=== PATIENT | male | born 1970 | race African-American/Black ===

== ENCOUNTER 2017-07-06 10:37 | Inpatient (IN) | payer OTHER ==
[2017-07-06 11:33] VITALS: BMI 25.8
--- NOTE | 2017-07-06 12:53 | HP ---
COWS - Scale Resting Pulse: 1= [place] 81-100 Sweatin= Chills/Flushing Restless Observation: 1= Difficult to Sit Still Pupil Size: 2= Moderately Dilated Bone or Joint Aches: 2= Severe Diffuse Aches Runny Nose/ Eye Tearin= Nasal Congestion GI Upset > 30mins: 2= Nausea/Diarrhea Tremor Observation: 2= Slight Tremor Visible Yawning Observation: 2= >3x During Session Anxiety or Irritability: 2=Irritable/Anxious Goose Flesh Skin: 0=Smooth Skin COWS Score: 16 Admission ROS S - HPI Chief Complaint: opiate withdrawal sx Allergies/Adverse Reactions: Allergies Allergy/AdvReac Type Severity Reaction Status Date / Time haloperidol [From Haldol] AdvReac Severe stiffness Verified 07/06/17 12:53 haloperidol lactate AdvReac Severe stiffness Verified 07/06/17 12:53 [From Haldol] risperidone [From Risperdal] AdvReac Severe stiffness Verified 07/06/17 12:53 History of Present Illness: 46 years old male with long history of opiate nicotine dependence has thyroid ca removed 2013 the right 2015 the left treated with synthroid at the present time, ambulating with cane x 5 years due to arthritis of the knees and spine, history of suboxone program last visit 03/2017 has schizophrenia is admitted to detox Exam Limitations: No Limitations - Ebola screening Have you traveled outside of the country in the last 21 days: No Have you had contact with anyone from an Ebola affected area: No Have you been sick,other than usual withdrawal symptoms: No Do you have a fever: No - Review of Systems Constitutional: Changes in sleep, Weight Stable EENT: reports: No Symptoms Reported Respiratory: reports: Cough, SOB with Exertion Cardiac: reports: No Symptoms Reported GI: reports: Nausea, Poor Fluid Intake, Abdominal cramping : reports: No Symptoms Reported Musculoskeletal: reports: Back Pain, Joint Pain, Muscle Pain, Muscle Weakness ( knees), Neck Pain Integumentary: reports: No Symptoms Reported Neuro: reports: Tremors Endocrine: reports: Intolerance to Cold Hematology: reports: No Symptoms Reported Psychiatric: reports: Judgement Intact, Orientated x3, Depressed Other Systems: Reviewed and Negative Patient History - Patient Medical History Hx Anemia: No Hx Asthma: Yes (dx 2009) Hx Chronic Obstructive Pulmonary Disease (COPD): No Hx Cancer: Yes (thyroid) Hx Cardiac Disorders: No Hx Congestive Heart Failure: No Hx Hypertension: Yes Hx Hypercholesterolemia: No Hx Pacemaker: No HX Cerebrovascular Accident: No Hx Seizures: No Hx Dementia: No Hx Diabetes: No Hx Gastrointestinal Disorders: No Hx Liver Disease: No Hx Genitourinary Disorders: No Hx Sexually Transmitted Disorders: No Hx Renal Disease (ESRD): Yes (bad kidneys due to high protein cannot take antiinflamatories) Hx Thyroid Disease: Yes (thyroid ca AND HYPOTHYROIDISM PST THYROIDECTOMY) Hx Human Immunodeficiency Virus (HIV): No Hx Hepatitis C: No Hx Depression: No (dx ) Hx Suicide Attempt: Yes (1987 & 2011) Hx Bipolar Disorder: Yes Hx Schizophrenia: No - Patient Surgical History Past Surgical History: Yes Hx Neurologic Surgery: No Hx Cataract Extraction: No Hx Cardiac Surgery: No Hx Lung Surgery: No Hx Breast Surgery: No Hx Breast Biopsy: No Hx Abdominal Surgery: No Hx Appendectomy: No Hx Cholecystectomy: No Hx Genitourinary Surgery: No Hx Orthopedic Surgery: No Other Surgical History: SURGERY FOR CANCER OF THYROID IN 01/27 AND 02/28 and back of neck early Anesthesia Reaction: No - PPD History Previous Implant?: Yes Documented Results: Negative w/proof Implanted On Prior R Admission?: Yes Date: 04/05/17 PPD to be Administered?: No - Smoking Cessation Smoking history: Current every day smoker Aproximately how many cigarettes per day: 10 Cigars Per Day: 0 Hx Chewing Tobacco Use: No Initiated information on smoking cessation: Yes 'Breaking Loose' booklet given: 07/06/17 - Substance & Tx. History Hx Alcohol Use: No Hx Substance Use: Yes Substance Use Type: Cocaine, Marijuana, Opiates Hx Substance Use Treatment: Yes (03/2017) Family Disease History - Family Disease History Family Disease History: Heart Disease: Grandparent (stroke), Father (ALCOHOL,DSA ,), Sister (lupus/stroke), Other: Grandparent, Father, Brother (ALCOHOL, DSA), Sister Admission Physical Exam BHS - Vital Signs Vital Signs: Vital Signs - 24 hr 07/06/17 11:29 Temperature 98.2 F Pulse Rate 96 H Respiratory 20 Rate Blood Pressure 126/73 - Physical General Appearance: Yes: Nourished, Appropriately Dressed, Mild Distress, Tremorous, Irritable, Sweating, Anxious HEENTM: Yes: Hearing grossly Normal, Normocephalic, Normal Voice Respiratory: Yes: Chest Non-Tender, No Respiratory Distress, No Accessory Muscle Use, Wheezing, Expiration Neck: Yes: Supple, Trachea in good position Breast: Yes: Breasts Symetrical, No Discharge Cardiology: Yes: Regular Rhythm, S1, S2, Tachycardia Abdominal: Yes: Normal Bowel Sounds, Non Tender, Flat Genitourinary: Yes: Within Normal Limits Back: Yes: Normal Inspection Musculoskeletal: Yes: full range of Motion (slower both knees), Gait Steady ( cane), Back pain, Muscle Pain, Muscle weakness (knees) Extremities: Yes: Normal Inspection, Normal Range of Motion (upper extremities) , Non-Tender, Tremors 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: Yes: Fully Oriented, Alert, Normal Mood/Affect, Normal Response, Depressed Affect Integumentary: Yes: Warm, Other (anterior lower neck surgical scar posterior neck surgical scar) Lymphatic: Yes: Within Normal Limits - Diagnostic (1) Cocaine dependence Current Visit: Yes Status: Chronic Qualifiers: Substance use status: uncomplicated Qualified Code(s): F14.20 - Cocaine dependence, uncomplicated (2) Tooth ache Current Visit: Yes Status: Chronic (3) Use of cane as ambulatory aid Current Visit: Yes Status: Chronic (4) Arthritis of back Current Visit: No Status: Chronic (5) Arthritis of both knees Current Visit: Yes Status: Chronic (6) Asthma Current Visit: Yes Status: Chronic Qualifiers: Asthma severity: mild Asthma persistence: intermittent Asthma complication type: with status asthmaticus Qualified Code(s): J45.22 - Mild intermittent asthma with status asthmaticus (7) Hypertension Current Visit: Yes Status: Chronic Qualifiers: Hypertension type: essential hypertension Qualified Code(s): I10 - Essential (primary) hypertension (8) Hypothyroidism Current Visit: Yes Status: Chronic Qualifiers: Hypothyroidism type: postoperative Qualified Code(s): E89.0 - Postprocedural hypothyroidism (9) Opioid dependence Current Visit: Yes Status: Acute Qualifiers: Substance use status: uncomplicated Qualified Code(s): F11.20 - Opioid dependence, uncomplicated (10) Schizoaffective disorder Current Visit: Yes Status: Suspected Qualifiers: Schizoaffective disorder type: bipolar Qualified Code(s): F25.0 - Schizoaffective disorder, bipolar type Comment: History. Cleared for Admission [facility] - Detox or Rehab [facility] Level of Care: Medically Managed Detox Regimen/Protocol: Methadone BHS Breath Alcohol Content Breath Alcohol Content: 0 Urine Drug Screen - Control Is Test Valid: Yes - Results Drug Screen Negative: No Urine Drug Screen Results: THC-Marijuana, RUCHI-Cocaine, OPI-Opiates, MTD- Methadone
[2017-07-06] MEDS ORDERED: IBUPROFEN 400 MG TABLET (FP) PO PRN (13:06)
[2017-07-06] MEDS ORDERED: LOPERAMIDE HCL 2 MG CAPSULE PO PRN (13:06)
[2017-07-06] MEDS ORDERED: MAGNESIUM CITRATE 300 ML BOTTLE PO PRN (13:06)
[2017-07-06] MEDS ORDERED: P-EPHED 60MG/TRIPROLIDI 2.5MG TABLET PO PRN (13:06)
[2017-07-06] MEDS ORDERED: MAGNESIUM HYDROX 2400MG/30ML ORAL SUSPENSION 30 ML CUP PO PRN (13:06)
[2017-07-06] MEDS ORDERED: ACETAMINOPHEN 325 MG TABLET (FP) PO PRN (13:06)
[2017-07-06] MEDS ORDERED: guaiFENesin/D-METHORPHAN HB 10 ML UNIT-DOSE CUPS PO PRN (13:06)
[2017-07-06] MEDS ORDERED: MENTHOL/PHENOL 1 EACH UD MM PRN (13:06)
[2017-07-06] MEDS ORDERED: MAG HYDROX/AL HYDROX/SIMETH 30 ML UNIT-DOSE CUP PO PRN (13:06)
[2017-07-06] MEDS ORDERED: ALBUTEROL SO4 18 GM HFA INHALER IH PRN (13:09)
[2017-07-06] MEDS ORDERED: METHADONE HCL 10 MG TABLET (FOR DETOX USE ONLY) PO ONE ×2 (13:45→23:00)
[2017-07-06] MEDS: NICOTINE 14 MG/24 HOURS TOPICAL PATCH TD SCH (14:56)
--- NOTE | 2017-07-06 17:25 | CONSULT ---
[facility] Psychiatric Consult - Data Date of interview: 07/06/17 Admission source: [facility] Identifying data: Readmission to [facility] for this 46 y/o [place]-born male seeking detox treatment on for heroin,cannabis and cocaine dependence.Patient is single without children,domiciled,unemployed,deprived of any source of income and currently suported by relatives. Substance Abuse History: Confirmed by patient in this interview.Smoking history : Current every day smoker. Aproximately how many cigarettes per day: 10. Cigars Per Day: 0. Hx Chewing Tobacco Use: No. Initiated information on smoking cessation: Yes. 'Breaking Loose' booklet given: 07/06/17. - Substance & Tx. History. Hx Alcohol Use: No. Hx Substance Use: Yes. Substance Use Type : Cocaine, Marijuana, Opiates. Hx Substance Use Treatment: Yes (03/2017) Medical History: Arthritis of both knees,end-stage renal disease (ESRD), hypertension,bronchial asthma and a history of thyroidectomy (thyroid cancer) in 2013.Currently on levothyroxine (150 mcg/day). Psychiatric History: Early onset of psychiatric disturbances : age 9 ( behavioral dyscontrol,school truancy,disregard for rules or authority figures) .Initially diagnosed with ADHD.Prescribed psychostimulants (ritalin).Diagnosis was upgraded to Schizoaffective Disorder and OCD (in his early 20's).Patient presents with a history of multiple psychiatric hospitalizations ([facility]).Managed with various psychotropic medications over the years which included haloperidol,risperdal,zyprexa, seroquel,depakote, fluoxetine,bupropion,luvoxamine and many other molecules. Mr Gutierrez is currently in psychiatric OPD care at a mental health clinic located in [place] ( name not recalled by patient).Managed with wellbutrin XL 150 mg.day.History of two suicide attempts (overdose with pills and hanging). Physical/Sexual Abuse/Trauma History: Not discussed.Patient declines.Records indicate a heavy history of incarcerations (26 cumulative years).Released in 2016.[place] status : not disclosed by the patient. Additional Comment: Urine Drug Screen Results: THC-Marijuana, RUCHI-Cocaine, OPI- Opiates, MTD-Methadone.Noted. Mental Status Exam - Mental Status Exam Alert and Oriented to: Time, Place, Person Cognitive Function: Good Patient Appearance: Well Groomed Mood: Nervous, Withdrawn, Anxious Affect: Appropriate, Mood Congruent Patient Behavior: Fatigued, Appropriate, Cooperative Speech Pattern: Clear Voice Loudness: Normal Thought Process: Goal Oriented Thought Disorder: Not Present Hallucinations: Denies Suicidal Ideation: Denies Homicidal Ideation: Denies Insight/Judgement: Poor Sleep: Well Appetite: Good Muscle strength/Tone: Normal Gait/Station: Normal Psychiatric Findings - Problem List ([place] 1, 2,3) (1) Opioid dependence with withdrawal Current Visit: Yes Status: Acute (2) Cocaine dependence, uncomplicated Current Visit: Yes Status: Acute (3) Cannabis dependence Current Visit: Yes Status: Acute (4) Nicotine dependence Current Visit: Yes Status: Acute (5) Substance induced mood disorder Current Visit: Yes Status: Acute (6) Schizoaffective disorder, depressive type Current Visit: Yes Status: Chronic (7) History of OCD (obsessive compulsive disorder) Current Visit: Yes Status: Chronic Comment: As per self-report and existing records. - Initial Treatment Plan Initial Treatment Plan: Psychoeducation.Detoxification.Sleep hygiene.Wellbutrin XL 150 mg po daily.Side effects/benefits discussed with the patient.Informed of risk of seizures.Mr Gutierrez agrees to this careplan.Observation.
[2017-07-06] MEDS: THIAMINE HCL 100 MG TABLET (FP) PO SCH (22:07)
[2017-07-06] MEDS: diazePAM 5 MG TABLET PO PRN (22:08)
[2017-07-06 23:54] LABS: URINE APPEARANCE TURBID; URINE BILIRUBIN NEGATIVE (<2.0 mg/dL); URINE COLOR AMBER; URINE GLUCOSE (UA) NEGATIVE (NEGATIVE); URINE KETONE NEGATIVE (NEGATIVE); URINE LEUK ESTERASE NEGATIVE (NEGATIVE); URINE NITRITE NEGATIVE (NEGATIVE); URINE UROBILINOGEN NEGATIVE mg/dL (0.2-1.0)
[2017-07-07 00:31] LABS: URINE PROTEIN 1+ (NEGATIVE)
[2017-07-07 00:34] LABS: EPI CELLS RARE /HPF (FEW); URINE HYALINE CAST 57 /lpf; URINE MUCUS MODERATE
[2017-07-07] MEDS ORDERED: LEVOTHYROXINE NA 25 MCG TABLET (FP) ONE (05:03)
[2017-07-07] MEDS ORDERED: LEVOTHYROXINE NA 100 MCG TABLET (FP) ONE (05:03)
[2017-07-07] MEDS: LEVOTHYROXINE 50 MCG, LEVOTHYROXINE 100 MCG PO SCH (06:11)
[2017-07-07] MEDS ORDERED: LEVOTHYROXINE NA 25 MCG TABLET (FP) PO SCH (07:00)
[2017-07-07 09:58] LABS: HEMATOCRIT 30.5 % (35.4-49); HEMOGLOBIN 10.1 GM/dL (11.7-16.9); MCH 27.5 pg (25.7-33.7); MCHC 33.2 g/dl (32.0-35.9); MEAN CELL VOLUME 82.9 fl (80-96); MEAN PLT VOLUME 8.6 fl (7.5-11.1); PLATELET COUNT 264 K/MM3 (134-434); RBC 3.68 M/mm3 (4.00-5.60); RDW 14.8 % (11.9-15.9); WHITE BLOOD COUNT 4.4 K/mm3 (4.0-10.0)
[2017-07-07] MEDS ORDERED: METHADONE HCL 10 MG TABLET (FOR DETOX USE ONLY) PO ONE (10:00)
[2017-07-07 10:02] LABS: ALBUMIN 3.9 g/dl (3.4-5.0); ANION GAP 7 (8-16); BLOOD UREA NITROGEN 39 mg/dL (7-18); CHLORIDE 107 mmol/L (98-107); CO2 27 mmol/L (21-32); GLUCOSE,RANDOM 107 mg/dL (74-106); POTASSIUM 4.3 mmol/L (3.5-5.1); SGOT/AST 29 U/L (15-37); SGPT/ALT 25 U/L (12-78); SODIUM 141 mmol/L (136-145)
[2017-07-07] MEDS: ENALAPRIL MALEATE 10 MG TABLET (FP) PO SCH (10:08)
[2017-07-07] MEDS: amLODIPine BESYLATE 10 MG TABLET (FP) PO SCH (10:08)
[2017-07-07] MEDS: PRENATAL VITAMINS W/ FOLIC ACID TABLET (FP) PO SCH (10:08)
[2017-07-07] MEDS: NICOTINE 14 MG/24 HOURS TOPICAL PATCH TD SCH (10:09)
[2017-07-07] MEDS: NICOTINE POLACRILEX 2 MG GUM BUC PRN (10:09)
[2017-07-07 10:19] LABS: ALK PHOS 70 U/L (45-117); BILIRUBIN,TOTAL 0.5 mg/dL (0.2-1.0); CALCIUM 7.7 mg/dL (8.5-10.1); CREATININE 2.3 mg/dL (0.7-1.3); TOT PROT 7.1 g/dl (6.4-8.2)
--- NOTE | 2017-07-07 11:37 | PN ---
BHS COWS - Scale Resting Pulse: 0= [place] 80 or Below Sweatin= Chills/Flushing Restless Observation: 3= Extraneous Movement Pupil Size: 1= Pupils >than Normal Bone or Joint Aches: 2= Severe Diffuse Aches Runny Nose/ Eye Tearin= Runny Nose/Eyes GI Upset > 30mins: 2= Nausea/Diarrhea Tremor Observation of Outstretched Hands: 2= Slight Tremor Visible Yawning Observation: 1= 1-2x During Session Anxiety or Irritability: 2=Irritable/Anxious Goose Flesh Skin: 0=Smooth Skin COWS Score: 16 S Progress Note (SOAP) Subjective: ALERT,IRRITABLE,ANXIOUS,INTERRUPTED SLEEP,PAIN IN THE BODY AND BACK Objective: 07/07/17 11:34 Vital Signs Temperature 98.1 F 07/07/17 09:17 Pulse Rate 79 07/07/17 09:17 Respiratory Rate 18 07/07/17 09:17 Blood Pressure 143/78 07/07/17 09:17 O2 Sat by Pulse Oximetry (%) EKG NSR,79/MIN PROLONG QT 408/467 NO CHEST PAIN,NO SOB,NO DIZZINESS Laboratory Last Values WBC 4.4 K/mm3 (4.0-10.0) D 07/07/17 05:45 RBC 3.68 M/mm3 (4.00-5.60) L 07/07/17 05:45 Hgb 10.1 GM/dL (11.7-16.9) L 07/07/17 05:45 Hct 30.5 % (35.4-49) L 07/07/17 05:45 MCV 82.9 fl (80-96) 07/07/17 05:45 MCH 27.5 pg (25.7-33.7) 07/07/17 05:45 MCHC 33.2 g/dl (32.0-35.9) 07/07/17 05:45 RDW 14.8 % (11.9-15.9) 07/07/17 05:45 Plt Count 264 K/MM3 (134-434) D 07/07/17 05:45 MPV 8.6 fl (7.5-11.1) D 07/07/17 05:45 Sodium 141 mmol/L (136-145) 07/07/17 05:45 Potassium 4.3 mmol/L (3.5-5.1) 07/07/17 05:45 Chloride 107 mmol/L (98-107) 07/07/17 05:45 Carbon Dioxide 27 mmol/L (21-32) 07/07/17 05:45 Anion Gap 7 (8-16) L 07/07/17 05:45 BUN 39 mg/dL (7-18) H D 07/07/17 05:45 Creatinine 2.3 mg/dL (0.7-1.3) H D 07/07/17 05:45 Creat Clearance w eGFR 30.50 (>60) 07/07/17 05:45 Random Glucose 107 mg/dL (74-106) H D 07/07/17 05:45 Calcium 7.7 mg/dL (8.5-10.1) L 07/07/17 05:45 Total Bilirubin 0.5 mg/dL (0.2-1.0) D 07/07/17 05:45 AST 29 U/L (15-37) D 07/07/17 05:45 ALT 25 U/L (12-78) 07/07/17 05:45 Alkaline Phosphatase 70 U/L (45-117) 07/07/17 05:45 Total Protein 7.1 g/dl (6.4-8.2) 07/07/17 05:45 Albumin 3.9 g/dl (3.4-5.0) 07/07/17 05:45 TSH 10.30 uIU/ml (0.358-3.74) H 07/07/17 05:45 Urine Color Chante 07/06/17 Unknown Urine Appearance Turbid 07/06/17 Unknown Urine pH 5.0 (5.0-8.0) 07/06/17 Unknown Ur Specific [place] 1.024 (1.001-1.035) 07/06/17 Unknown Urine Protein 1+ (NEGATIVE) H 07/06/17 Unknown Urine Glucose (UA) Negative (NEGATIVE) 07/06/17 Unknown Urine Ketones Negative (NEGATIVE) 07/06/17 Unknown Urine Blood Negative (NEGATIVE) 07/06/17 Unknown Urine Nitrite Negative (NEGATIVE) 07/06/17 Unknown Urine Bilirubin Negative (<2.0 mg/dL) 07/06/17 Unknown Urine Urobilinogen Negative mg/dL (0.2-1.0) 07/06/17 Unknown Ur Leukocyte Esterase Negative (NEGATIVE) 07/06/17 Unknown Urine WBC (Auto) 2 /hpf (3-5) 07/06/17 Unknown Urine RBC (Auto) 2 /hpf (0-3) 07/06/17 Unknown Ur Epithelial Cells Rare /HPF (FEW) 07/06/17 Unknown Hyaline Casts 57 /lpf 07/06/17 Unknown Urine Mucus Moderate 07/06/17 Unknown Assessment: 07/07/17 11:37 WITHDRAWAL SYMPTOM Plan: CONTINUE DETOX,RENAL INSUFFICIENCY,ENCOURAGE ORAL FLUID,REPEAT CMP IN AM
[2017-07-07] MEDS ORDERED: CYCLOBENZAPRINE HCL 10 MG TABLET (FP) PO PRN (12:13)
--- NOTE | 2017-07-07 12:16 | PN ---
S Progress Note Note: patient has history of acute renal failure from ibuprofen and naprosyn,d/c ibuprofen,flexeril 10 mgs po tid prn history of anemia on iron
[2017-07-07] MEDS: FERROUS SO4 325 MG TABLET (FP) PO SCH (14:50)
--- NOTE | 2017-07-07 15:10 | PN ---
Psychiatric Progress Note Vital Signs: Vital Signs Period Temp Pulse Resp BP Sys/Padron Pulse Ox Last 24 Hr 97.7 F-98.2 F 76-89 18-20 118-145/64-95 Date of Session: 07/07/17 Chief Complaint:: My medications HPI: Patient reports taking prior to admission Wellbutrin XL 150mg po bid at 10am and 4 pm with good response, patient asking to order preadmission dose of Wellbutrin Current Medications: Active Medications Generic Name Dose Route Start Last Admin Trade Name Freq PRN Reason Stop Dose Admin Acetaminophen 650 mg 07/06/17 13:06 Tylenol - PO Q4H PRN FEVER Al Hydroxide/Mg Hydroxide 30 ml 07/06/17 13:06 Mylanta Oral Suspension - PO Q6H PRN DYSPEPSIA Albuterol Sulfate 2 puff 07/06/17 13:09 Ventolin Hfa Inhaler - IH Q4H PRN WHEEZING Amlodipine Besylate 10 mg 07/07/17 10:00 07/07/17 10:08 Norvasc - PO 10 mg DAILY SAKSHI Administration Bupropion HCl 150 mg 07/07/17 16:00 Wellbutrin Xl - PO BID@1000,1600 SAKSHI Cyclobenzaprine HCl 10 mg 07/07/17 12:13 Flexeril - PO TID PRN MUSCLE SPASMS Diazepam 10 mg 07/06/17 13:06 07/06/17 22:08 Valium - PO 07/09/17 13:05 10 mg Q4H PRN Administration WITHDRAWAL(CONT SUBST) Enalapril Maleate 10 mg 07/07/17 10:00 07/07/17 10:08 Vasotec - PO 10 mg DAILY SAKSHI Administration Eucalyptus/Menthol/Phenol/Sorbitol 1 each 07/06/17 13:06 Cepastat Lozenge - MM Q4H PRN SORE THROAT Ferrous Sulfate 325 mg 07/07/17 12:30 07/07/17 14:50 Feosol - PO 325 mg DAILY SAKSHI Administration Guaifenesin 10 ml 07/06/17 13:06 Robitussin Dm - PO Q6H PRN COUGH Levothyroxine Sodium 50 mcg/ 150 mcg 07/07/17 07:00 07/07/17 06:11 Levothyroxine Sodium 100 mcg PO 150 mcg DAILY@0700 SAKSHI Administration Loperamide HCl 4 mg 07/06/17 13:06 Imodium - PO Q6H PRN DIARRHEA Magnesium Citrate 300 ml 07/06/17 13:06 Citroma - PO Q48H PRN CONSTIPATION Magnesium Hydroxide 30 ml 07/06/17 13:06 Milk Of Magnesia - PO DAILY PRN CONSTIPATION Melatonin 5 mg 07/06/17 22:00 Melatonin PO HS PRN INSOMNIA Methadone HCl 15 mg 07/08/17 10:00 Dolophine - PO 07/08/17 10:01 ONCE ONE Methadone HCl 5 mg 07/11/17 06:00 Dolophine - PO 07/11/17 06:01 ONCE@0600 ONE Methadone HCl 15 mg 07/09/17 10:00 Dolophine - PO 07/09/17 10:01 ONCE ONE Methadone HCl 10 mg 07/10/17 10:00 Dolophine - PO 07/10/17 10:01 ONCE ONE Nicotine 14 mg 07/06/17 14:00 07/07/17 10:09 Nicoderm Patch - TD Not Given DAILY SAKSHI Nicotine Polacrilex 2 mg 07/06/17 13:06 07/07/17 10:09 Nicorette Gum - BUC 2 mg Q2H PRN Administration NICOTINE REPLACEMENT RX Multivit/Folic Acid/Iron 1 tab 07/07/17 10:00 07/07/17 10:08 Vitamins (Sjr) - PO 1 tab DAILY SAKSHI Administration Pseudoephedrine/Triprolidine 1 combo 07/06/17 13:06 Actifed - PO TID PRN NASAL CONGESTION Thiamine HCl 100 mg 07/06/17 22:00 07/06/17 22:07 Vitamin B1 - PO 100 mg HS SAKSHI Administration Medication(s) Change(s): Wellbutrin XL 150mg po bid started Provider note:: Wellbutrin XL 150mg po bid at 1000 and 1600. Mental Status Exam - Mental Status Exam Alert and Oriented to: Place, Person Cognitive Function: Fair Patient Appearance: Well Groomed Mood: Apprehensive Affect: Mood Congruent Patient Behavior: Cooperative Speech Pattern: Appropriate Voice Loudness: Normal Thought Process: Goal Oriented Thought Disorder: Being Controlled Hallucinations: Denies Suicidal Ideation: Denies Homicidal Ideation: Denies Insight/Judgement: Fair Sleep: Difficulty falling asleep Appetite: Fair Muscle strength/Tone: Normal Gait/Station: Normal Additional Comments: Wellbutrin XL 150mg po bid Psychiatric Treatment Plan - Problem List (1) Cannabis dependence Current Visit: Yes (2) Cocaine dependence, uncomplicated Current Visit: Yes (3) Nicotine dependence Current Visit: Yes (4) Opioid dependence Current Visit: Yes Qualifiers: Substance use status: uncomplicated Qualified Code(s): F11.20 - Opioid dependence, uncomplicated (5) Opioid dependence with withdrawal Current Visit: Yes (6) Substance induced mood disorder Current Visit: Yes (7) Cocaine dependence Current Visit: Yes Qualifiers: Substance use status: uncomplicated Qualified Code(s): F14.20 - Cocaine dependence, uncomplicated (8) Schizoaffective disorder, depressive type Current Visit: Yes (9) Cannabis dependence, uncomplicated Current Visit: No (10) OCD (obsessive compulsive disorder) Current Visit: No (11) Opioid dependence, daily use Current Visit: No (12) Panic disorder Current Visit: No Initial treatment plan: Wellbutrin XL 150mg po bid
--- NOTE | 2017-07-07 16:35 | EKG ---
Test Reason : Blood Pressure : / mmHG Vent. Rate : 079 BPM Atrial Rate : 079 BPM P-R Int : 144 ms QRS Dur : 104 ms QT Int : 408 ms P-R-T Axes : 034 047 043 degrees QTc Int : 467 ms NORMAL SINUS RHYTHM NORMAL ECG WHEN COMPARED WITH ECG OF 04-APR-2017 09:58, NO SIGNIFICANT CHANGE WAS FOUND Confirmed by WILBER MARTINI MD ([id number]) on 07/07/2017 4:34:52 PM Referred By: Confirmed By:WILBER MARTINI MD
[2017-07-07] MEDS: THIAMINE HCL 100 MG TABLET (FP) PO SCH (22:10)
[2017-07-08] MEDS ORDERED: LEVOTHYROXINE NA 100 MCG TABLET (FP) ONE (05:10)
[2017-07-08] MEDS ORDERED: LEVOTHYROXINE NA 25 MCG TABLET (FP) ONE (05:10)
[2017-07-08] MEDS: LEVOTHYROXINE 50 MCG, LEVOTHYROXINE 100 MCG PO SCH (08:14)
[2017-07-08] MEDS ORDERED: METHADONE HCL 5 MG TABLET (FOR DETOX USE ONLY) PO ONE (10:00)
[2017-07-08] MEDS: ENALAPRIL MALEATE 10 MG TABLET (FP) PO SCH (10:13)
[2017-07-08] MEDS: amLODIPine BESYLATE 10 MG TABLET (FP) PO SCH (10:13)
[2017-07-08] MEDS: FERROUS SO4 325 MG TABLET (FP) PO SCH (10:13)
[2017-07-08] MEDS: PRENATAL VITAMINS W/ FOLIC ACID TABLET (FP) PO SCH (10:13)
[2017-07-08] MEDS: NICOTINE 14 MG/24 HOURS TOPICAL PATCH TD SCH (10:14)
[2017-07-08] MEDS: NICOTINE POLACRILEX 2 MG GUM BUC PRN (10:16)
[2017-07-08 10:20] LABS: CHLORIDE 104 mmol/L (98-107); POTASSIUM 5.2 mmol/L (3.5-5.1); SODIUM 141 mmol/L (136-145)
[2017-07-08 10:45] LABS: ALBUMIN 3.4 g/dl (3.4-5.0); ALK PHOS 62 U/L (45-117); ANION GAP 2 (8-16); BILIRUBIN,TOTAL 0.3 mg/dL (0.2-1.0); BLOOD UREA NITROGEN 17 mg/dL (7-18); CALCIUM 7.8 mg/dL (8.5-10.1); CO2 35 mmol/L (21-32); CREATININE 0.9 mg/dL (0.7-1.3); GLUCOSE,RANDOM 85 mg/dL (74-106); SGOT/AST 19 U/L (15-37); SGPT/ALT 19 U/L (12-78); TOT PROT 6.5 g/dl (6.4-8.2)
--- NOTE | 2017-07-08 11:09 | PN ---
BHS COWS - Scale Resting Pulse: 1= [place] 81-100 Sweatin= Chills/Flushing Restless Observation: 3= Extraneous Movement Pupil Size: 1= Pupils >than Normal Bone or Joint Aches: 2= Severe Diffuse Aches Runny Nose/ Eye Tearin= Nasal Congestion GI Upset > 30mins: 2= Nausea/Diarrhea Tremor Observation of Outstretched Hands: 2= Slight Tremor Visible Yawning Observation: 1= 1-2x During Session Anxiety or Irritability: 2=Irritable/Anxious Goose Flesh Skin: 0=Smooth Skin COWS Score: 16 BHS Progress Note (SOAP) Subjective: ALERT,IRRITABLE,PAIN IN THE BODY,PAIN IN THE BACK Objective: 07/08/17 11:06 Vital Signs Temperature 98.1 F 07/08/17 10:03 Pulse Rate 82 07/08/17 10:03 Respiratory Rate 20 07/08/17 10:03 Blood Pressure 131/82 07/08/17 10:03 O2 Sat by Pulse Oximetry (%) Laboratory Results - last 24 hr 07/07/17 07/08/17 05:45 07:50 Sodium 141 Potassium 5.2 H D Chloride 104 Carbon Dioxide 35 H D Anion Gap 2 L BUN 17 D Creatinine 0.9 D Creat Clearance w eGFR > 60 Random Glucose 85 D Calcium 7.8 L Total Bilirubin 0.3 D AST 19 D ALT 19 D Alkaline Phosphatase 62 Total Protein 6.5 Albumin 3.4 RPR Titer Nonreactive Assessment: 07/08/17 11:30 WITHDRAWAL SYMPTOM Plan: CONTINUE DETOX
[2017-07-08] MEDS: diazePAM 5 MG TABLET PO PRN (22:09)
[2017-07-08] MEDS: THIAMINE HCL 100 MG TABLET (FP) PO SCH (22:09)
[2017-07-09] MEDS ORDERED: LEVOTHYROXINE NA 100 MCG TABLET (FP) ONE (05:08)
[2017-07-09] MEDS ORDERED: LEVOTHYROXINE NA 25 MCG TABLET (FP) ONE (05:08)
[2017-07-09] MEDS: LEVOTHYROXINE 50 MCG, LEVOTHYROXINE 100 MCG PO SCH (06:33)
[2017-07-09] MEDS ORDERED: METHADONE HCL 5 MG TABLET (FOR DETOX USE ONLY) PO ONE (10:00)
[2017-07-09] MEDS: ENALAPRIL MALEATE 10 MG TABLET (FP) PO SCH (10:26)
[2017-07-09] MEDS: NICOTINE 14 MG/24 HOURS TOPICAL PATCH TD SCH (10:26)
[2017-07-09] MEDS: FERROUS SO4 325 MG TABLET (FP) PO SCH (10:26)
[2017-07-09] MEDS: amLODIPine BESYLATE 10 MG TABLET (FP) PO SCH (10:26)
[2017-07-09] MEDS: PRENATAL VITAMINS W/ FOLIC ACID TABLET (FP) PO SCH (10:26)
--- NOTE | 2017-07-09 11:10 | PN ---
S Progress Note (SOAP) Subjective: ALERT,IRRITABLE,ANXIOUS,INTERRUPTED SLEEP,TREMOR Objective: 07/09/17 11:07 Vital Signs Temperature 98.4 F 07/09/17 09:18 Pulse Rate 91 H 07/09/17 09:18 Respiratory Rate 16 07/09/17 09:18 Blood Pressure 135/91 07/09/17 09:18 O2 Sat by Pulse Oximetry (%) 07/09/17 11:09 Laboratory Last Values WBC 4.4 K/mm3 (4.0-10.0) D 07/07/17 05:45 RBC 3.68 M/mm3 (4.00-5.60) L 07/07/17 05:45 Hgb 10.1 GM/dL (11.7-16.9) L 07/07/17 05:45 Hct 30.5 % (35.4-49) L 07/07/17 05:45 MCV 82.9 fl (80-96) 07/07/17 05:45 MCH 27.5 pg (25.7-33.7) 07/07/17 05:45 MCHC 33.2 g/dl (32.0-35.9) 07/07/17 05:45 RDW 14.8 % (11.9-15.9) 07/07/17 05:45 Plt Count 264 K/MM3 (134-434) D 07/07/17 05:45 MPV 8.6 fl (7.5-11.1) D 07/07/17 05:45 Sodium 141 mmol/L (136-145) 07/08/17 07:50 Potassium 5.2 mmol/L (3.5-5.1) H D 07/08/17 07:50 Chloride 104 mmol/L (98-107) 07/08/17 07:50 Carbon Dioxide 35 mmol/L (21-32) H D 07/08/17 07:50 Anion Gap 2 (8-16) L 07/08/17 07:50 BUN 17 mg/dL (7-18) D 07/08/17 07:50 Creatinine 0.9 mg/dL (0.7-1.3) D 07/08/17 07:50 Creat Clearance w eGFR > 60 (>60) 07/08/17 07:50 Random Glucose 85 mg/dL (74-106) D 07/08/17 07:50 Calcium 7.8 mg/dL (8.5-10.1) L 07/08/17 07:50 Total Bilirubin 0.3 mg/dL (0.2-1.0) D 07/08/17 07:50 AST 19 U/L (15-37) D 07/08/17 07:50 ALT 19 U/L (12-78) D 07/08/17 07:50 Alkaline Phosphatase 62 U/L (45-117) 07/08/17 07:50 Total Protein 6.5 g/dl (6.4-8.2) 07/08/17 07:50 Albumin 3.4 g/dl (3.4-5.0) 07/08/17 07:50 TSH 10.30 uIU/ml (0.358-3.74) H 07/07/17 05:45 Urine Color Chante 07/06/17 Unknown Urine Appearance Turbid 07/06/17 Unknown Urine pH 5.0 (5.0-8.0) 07/06/17 Unknown Ur Specific [place] 1.024 (1.001-1.035) 07/06/17 Unknown Urine Protein 1+ (NEGATIVE) H 07/06/17 Unknown Urine Glucose (UA) Negative (NEGATIVE) 07/06/17 Unknown Urine Ketones Negative (NEGATIVE) 07/06/17 Unknown Urine Blood Negative (NEGATIVE) 07/06/17 Unknown Urine Nitrite Negative (NEGATIVE) 07/06/17 Unknown Urine Bilirubin Negative (<2.0 mg/dL) 07/06/17 Unknown Urine Urobilinogen Negative mg/dL (0.2-1.0) 07/06/17 Unknown Ur Leukocyte Esterase Negative (NEGATIVE) 07/06/17 Unknown Urine WBC (Auto) 2 /hpf (3-5) 07/06/17 Unknown Urine RBC (Auto) 2 /hpf (0-3) 07/06/17 Unknown Ur Epithelial Cells Rare /HPF (FEW) 07/06/17 Unknown Hyaline Casts 57 /lpf 07/06/17 Unknown Urine Mucus Moderate 07/06/17 Unknown RPR Titer Nonreactive (NONREACTIVE) 07/07/17 05:45 Assessment: 07/09/17 11:09 WITHDRAWAL SYMPTOM Plan: CONTINUE DETOX
[2017-07-09] MEDS: THIAMINE HCL 100 MG TABLET (FP) PO SCH (22:29)
[2017-07-09] MEDS: MELATONIN 5 MG TABLETS PO PRN (22:30)
[2017-07-10] MEDS ORDERED: LEVOTHYROXINE NA 25 MCG TABLET (FP) ONE (04:42)
[2017-07-10] MEDS ORDERED: LEVOTHYROXINE NA 100 MCG TABLET (FP) ONE (04:42)
[2017-07-10] MEDS: LEVOTHYROXINE 50 MCG, LEVOTHYROXINE 100 MCG PO SCH (07:54)
[2017-07-10] MEDS ORDERED: METHADONE HCL 10 MG TABLET (FOR DETOX USE ONLY) PO ONE (10:00)
[2017-07-10] MEDS: ENALAPRIL MALEATE 10 MG TABLET (FP) PO SCH (10:19)
[2017-07-10] MEDS: FERROUS SO4 325 MG TABLET (FP) PO SCH (10:19)
[2017-07-10] MEDS: PRENATAL VITAMINS W/ FOLIC ACID TABLET (FP) PO SCH (10:19)
[2017-07-10] MEDS: amLODIPine BESYLATE 10 MG TABLET (FP) PO SCH (10:20)
[2017-07-10] MEDS: NICOTINE 14 MG/24 HOURS TOPICAL PATCH TD SCH (10:20)
--- NOTE | 2017-07-10 13:28 | PN ---
BHS Progress Note (SOAP) Subjective: alert,irritable,anxious,interrupted sleep,pain in the back and left knee Objective: 07/10/17 13:27 Vital Signs Temperature 97.9 F 07/10/17 09:13 Pulse Rate 80 07/10/17 09:13 Respiratory Rate 16 07/10/17 09:13 Blood Pressure 122/69 07/10/17 09:13 O2 Sat by Pulse Oximetry (%) Assessment: 07/10/17 13:28 withdrawal symptom Plan: continue detox,repeat k to day
[2017-07-10] MEDS: MELATONIN 5 MG TABLETS PO PRN (22:26)
[2017-07-10] MEDS: THIAMINE HCL 100 MG TABLET (FP) PO SCH (22:26)
[2017-07-11] MEDS: LEVOTHYROXINE 50 MCG, LEVOTHYROXINE 100 MCG PO SCH ×2 (01:20→06:19)
[2017-07-11] MEDS ORDERED: LEVOTHYROXINE NA 100 MCG TABLET (FP) ONE (04:36)
[2017-07-11] MEDS ORDERED: LEVOTHYROXINE NA 25 MCG TABLET (FP) ONE (04:36)
[2017-07-11] MEDS ORDERED: METHADONE HCL 5 MG TABLET (FOR DETOX USE ONLY) PO ONE (06:00)
[2017-07-11] MEDS: FERROUS SO4 325 MG TABLET (FP) PO SCH (10:44)
[2017-07-11] MEDS: amLODIPine BESYLATE 10 MG TABLET (FP) PO SCH (10:44)
[2017-07-11] MEDS: ENALAPRIL MALEATE 10 MG TABLET (FP) PO SCH (10:44)
[2017-07-11] MEDS: NICOTINE 14 MG/24 HOURS TOPICAL PATCH TD SCH (10:44)
[2017-07-11] MEDS: PRENATAL VITAMINS W/ FOLIC ACID TABLET (FP) PO SCH (10:44)
--- NOTE | 2017-07-11 12:59 | PN ---
BHS Progress Note (SOAP) Subjective: ALERT,IRRITABLE,INTERRUPTED SLEEP,PAIN IN THE KNEES AND BACK Objective: 07/11/17 12:58 Vital Signs Temperature 97.3 F L 07/11/17 09:27 Pulse Rate 86 07/11/17 09:27 Respiratory Rate 16 07/11/17 09:27 Blood Pressure 125/80 07/11/17 09:27 O2 Sat by Pulse Oximetry (%) 07/11/17 12:58 Laboratory Results - last 24 hr 07/10/17 12:09 Potassium 4.9 Assessment: 07/11/17 12:58 WITHDRAWAL SYMPTOM Plan: CONTINUE DETOX,DISCHARGE IN AM
[2017-07-11] MEDS: THIAMINE HCL 100 MG TABLET (FP) PO SCH (22:38)
[2017-07-11] MEDS: MELATONIN 5 MG TABLETS PO PRN (22:38)
[2017-07-12] MEDS ORDERED: LEVOTHYROXINE NA 25 MCG TABLET (FP) ONE (03:27)
[2017-07-12] MEDS ORDERED: LEVOTHYROXINE NA 100 MCG TABLET (FP) ONE (03:28)
[2017-07-12] MEDS: LEVOTHYROXINE 50 MCG, LEVOTHYROXINE 100 MCG PO SCH (06:10)
--- NOTE | 2017-07-12 08:22 | PN ---
BHS Progress Note (SOAP) Subjective: ALERT,NO COMPLAINT Objective: 07/12/17 08:19 Vital Signs Temperature 97.7 F 07/12/17 06:00 Pulse Rate 78 07/12/17 06:00 Respiratory Rate 18 07/12/17 06:00 Blood Pressure 117/80 07/12/17 06:00 O2 Sat by Pulse Oximetry (%) 07/12/17 08:19 DETOX COMPLETED,NO WITHDRAWAL SYMPTOM Assessment: 07/12/17 08:20 NO WITHDRAWAL SYMPTOM Plan: DISCHARGE TODAY,FOLLOW UP WITH AFTER CARE PROGRAM ARRANGEMENT
--- NOTE | 2017-07-12 08:26 | DS ---
[facility] Detox Discharge Summary Admission Date: 07/06/17 Discharge Date: 07/12/17 - History Present History: Cocaine Dependence, Opioid Dependence Additional Comments: FOLLOW UP WITH AFTER CARE PROGRAM ARRANGEMENT Pertinent Past History: ASTHMA HYPERTENSION HYPOTHYROIDISM ARTHRITIS BOTH KNEES RENAL INSUFFICIENCY USE CANE AMBULATORY AID - Physical Exam Results Vital Signs: Vital Signs Temperature 97.7 F 07/12/17 06:00 Pulse Rate 78 07/12/17 06:00 Respiratory Rate 18 07/12/17 06:00 Blood Pressure 117/80 07/12/17 06:00 O2 Sat by Pulse Oximetry (%) Pertinent Admission Physical Exam Findings: WITHDRAWAL SIGNS AND SYMPTOMS - Treatment Hospital Course: Detox Protocol Followed, Detoxed Safely, Responded well, Discharged Condition Good Patient has Accepted a Rehab Referral to: DECLINED - Medication Discharge Medications: Ambulatory Orders Albuterol Sulfate Inhaler - [Ventolin HFA Inhaler -] 2 puff IH Q4H PRN #1 inhaler 04/08/17 Amlodipine Besylate [Norvasc -] 10 mg PO DAILY #30 tablet 04/08/17 Enalapril Maleate [Vasotec -] 10 mg PO DAILY #30 tablet 04/08/17 Levothyroxine [Synthroid -] 150 mcg PO DAILY@0700 #30 tablet 04/08/17 Bupropion HCl [Bupropion HCl Sr] 150 mg PO DAILY 07/06/17 Bupropion HCl [Wellbutrin Xl -] 150 mg PO BID@1000,1600 #30 tab.sr.24h 07/07/17 - Diagnosis (1) Opioid dependence with withdrawal Current Visit: Yes Status: Acute (2) Cocaine dependence, uncomplicated Current Visit: Yes Status: Acute (3) Nicotine dependence Current Visit: Yes Status: Acute (4) Arthritis of both knees Current Visit: Yes Status: Chronic (5) Asthma Current Visit: Yes Status: Chronic Qualifiers: Asthma severity: mild Asthma persistence: intermittent Asthma complication type: with status asthmaticus Qualified Code(s): J45.22 - Mild intermittent asthma with status asthmaticus (6) Hypertension Current Visit: Yes Status: Chronic Qualifiers: Hypertension type: essential hypertension Qualified Code(s): I10 - Essential (primary) hypertension (7) Hypothyroidism Current Visit: Yes Status: Chronic Qualifiers: Hypothyroidism type: postoperative Qualified Code(s): E89.0 - Postprocedural hypothyroidism (8) Schizoaffective disorder, depressive type Current Visit: Yes Status: Chronic (9) Use of cane as ambulatory aid Current Visit: Yes Status: Chronic (10) History of thyroidectomy Current Visit: No Status: Chronic (11) Iron deficiency anemia Current Visit: No Status: Chronic (12) Renal insufficiency Current Visit: Yes Status: Acute - AMA Did Patient Leave Against Medical Advice: No
[2017-07-12] MEDS: ENALAPRIL MALEATE 10 MG TABLET (FP) PO SCH (10:27)
[2017-07-12] MEDS: FERROUS SO4 325 MG TABLET (FP) PO SCH (10:27)
[2017-07-12] MEDS: NICOTINE 14 MG/24 HOURS TOPICAL PATCH TD SCH (10:27)
[2017-07-12] MEDS: PRENATAL VITAMINS W/ FOLIC ACID TABLET (FP) PO SCH (10:27)
[2017-07-12] MEDS: amLODIPine BESYLATE 10 MG TABLET (FP) PO SCH (10:27)
[2017-07-12 10:37] VITALS: BP 134/81; PULSE 100; TEMP 97.9
== END 2017-07-12 11:14 | disposition home or self-care (01) | DRG 773 ==
LOC: YASAS 10:37 → Y6N 13:39
PROVIDERS: ADMIT Surgery; ATTEND Surgery
PROC: HZ2ZZZZ Detoxification Services for Substance Abuse Treatment (ICD-10-PCS; principal; 2017-07-06)
DX: F11.23 Opioid dependence with withdrawal (principal); F14.20 Cocaine dependence, uncomplicated; F19.24 Other psychoactive substance dependence with psychoactive substance-induced mood disorder; F42.8 Other obsessive-compulsive disorder; F25.9 Schizoaffective disorder, unspecified; J45.22 Mild intermittent asthma with status asthmaticus; I10 Essential (primary) hypertension; E89.0 Postprocedural hypothyroidism; N28.9 Disorder of kidney and ureter, unspecified; D50.9 Iron deficiency anemia, unspecified; R26.89 Other abnormalities of gait and mobility; Z99.89 Dependence on other enabling machines and devices; Z91.5 Personal history of self-harm
CPT/HCPCS: 36415; 80053; 81003; 81015; 84132; 84443; 85027; 86593; 93005; 93010

== ENCOUNTER 2019-08-27 08:22 | Inpatient (IN) | payer OTHER ==
--- NOTE | 2019-08-27 08:51 | BHS.RME ---
Substance Use & Tx History - Substance Use History Heroin Substance amount: 5 bags Frequency of use: Daily Substance route: Inhalation (ex: sniffing or snorting) Date of Last Use: 08/26/19 Cocaine- Powder Substance amount: $50 Frequency of use: Daily Substance route: Inhalation (ex: sniffing or snorting) Date of Last Use: 08/26/19 Alcohol Substance amount: 2 beers Frequency of use: Daily Substance route: Oral Date of Last Use: 08/26/19 - Last Treatment Date of last treatment: 2017 Treatment type: Substance Use Disorder (ANURADHA) Where was last treatment: Detox Physical/Psych/Mental Status - Behavior General Behavior: Increased activity (restlessness, agitation) Eye Contact: Normal - Cooperativeness Cooperativeness: Cooperative - Thinking Thought Processes: Tight, Logical, Goal Directed - Physical Health Problems Is patient presently having any pain?: No Does patient presently have any injuries (include location): No Does patient currently have a fever: No Is patient : No COWS - Scale Resting Pulse: 1= [place] 81-100 Sweatin= Streaming Sweat Restless Observation: 1= Difficult to Sit Still Pupil Size: 2= Moderately Dilated Bone or Joint Aches: 2= Severe Diffuse Aches Runny Nose/ Eye Tearin= Runny Nose/Eyes GI Upset > 30mins: 2= Nausea/Diarrhea Tremor Observation: 2= Slight Tremor Visible Yawning Observation: 1= 1-2x During Session Anxiety or Irritability: 1=Feels Anxious/Irritable Goose Flesh Skin: 3=Piloerection COWS Score: 21
[2019-08-27] MEDS ORDERED: MAGNESIUM CITRATE 300 ML BOTTLE PO PRN (09:03)
[2019-08-27] MEDS ORDERED: METHADONE HCL 10 MG TABLET (FOR DETOX USE ONLY) PO ONE ×2 (09:03→09:16)
[2019-08-27] MEDS ORDERED: NICOTINE POLACRILEX 2 MG GUM BUC PRN (09:03)
[2019-08-27] MEDS ORDERED: ONDANSETRON *ODT* 4 MG TABLET SL ONE (09:03)
[2019-08-27] MEDS ORDERED: MAGNESIUM HYDROX 2400MG/30ML ORAL SUSPENSION 30 ML CUP PO PRN (09:03)
[2019-08-27] MEDS ORDERED: cloNIDine HCL 0.1 MG TABLET PO PRN (09:03)
[2019-08-27] MEDS ORDERED: BISMUTH SUBSALICYLATE 524 MG/30 ML UD PO PRN (09:03)
[2019-08-27] MEDS ORDERED: MENTHOL/PHENOL 1 EACH UD MM PRN (09:03)
[2019-08-27] MEDS ORDERED: ACETAMINOPHEN 325 MG TABLET (FP) PO PRN ×2 (09:03)
[2019-08-27] MEDS ORDERED: IBUPROFEN 400 MG TABLET (FP) PO PRN (09:03)
[2019-08-27] MEDS ORDERED: MAG HYDROX/AL HYDROX/SIMETH 30 ML UNIT-DOSE CUP PO PRN (09:03)
[2019-08-27] MEDS ORDERED: ALBUTEROL SO4 HFA INHALER IH PRN (09:05)
[2019-08-27] MEDS ORDERED: METHADONE (DETOX) 20 MG, METHADONE (DETOX) 5 MG PO STA (09:06)
--- NOTE | 2019-08-27 09:15 | HP ---
COWS - Scale Resting Pulse: 1= [place] 81-100 Sweatin= Streaming Sweat Restless Observation: 1= Difficult to Sit Still Pupil Size: 2= Moderately Dilated Bone or Joint Aches: 2= Severe Diffuse Aches Runny Nose/ Eye Tearin= Runny Nose/Eyes GI Upset > 30mins: 2= Nausea/Diarrhea Tremor Observation: 2= Slight Tremor Visible Yawning Observation: 1= 1-2x During Session Anxiety or Irritability: 1=Feels Anxious/Irritable Goose Flesh Skin: 3=Piloerection COWS Score: 21 CIWA Score - Admission Criteria OASAS Guidelines: Admission for Medically Managed Detox: Requires at least one of the followin. CIWA greater than 12 2. Seizures within the past 24 hours 3. Delirium tremens within the past 24 hours 4. Hallucinations within the past 24 hours 5. Acute intervention needed for co occurring medical disorder 6. Acute intervention needed for co occurring psychiatric disorder 7. Severe withdrawal that cannot be handled at a lower level of care (continued vomiting, continued diarrhea, abnormal vital signs) requiring intravenous medication and/or fluids 8. Admitting History and Physical - Admission Chief Complaint: " I need help." History of Present Illness: 48 year old male with history of opioid dependence with severe withdrawals. Cocaine use disorder and Alcohol use disorder. patient has in methadone at [facility] but relapsed 2 months ago. Was using 80mg of methadone daily He was last here in 06/2017 and completed detox. Alcohol: 2 beers daily, started at age 36 and last usedd 08/26/19, Heroin: 5 bags daily IN, started at age 35, last used 08/26/19, overdosed twice, does carry narcan Cocaine $50 IN, started at age 19 and last used 08/26/19 PMH: HTN, Arthritis, Asthma Psurg: Thyroidectomy 2018 Psych: Schizoaffective disorder, Panic Disorder Lives alone in own apartment in the [place] No legal issues. COWS=21 ROLAN: 0.000 Limitations to Obtaining History: No Limitations - Past Medical History Cardiovascular: Yes: HTN Pulmonary: Yes: Asthma Musculoskeletal: Yes: Osteoarthritis Endocrine: Yes: Other (thyroid ca) - Past Surgical History Additional Past Surgical History: thyroidectomy 2018 - Smoking History Smoking history: Current every day smoker Aproximately how many cigarettes per day: 10 - Alcohol/Substance Use Hx Alcohol Use: No History of Substance Use: reports: Cocaine - Social History Usual Living Arrangement: Yes: Alone Do you think of yourself as: Straight/Heterosexual ADL: Independent Occupation: unemployed History of Recent Travel: No Admission ROS [facility] Allergies/Adverse Reactions: Allergies Allergy/AdvReac Type Severity Reaction Status Date / Time haloperidol [From Haldol] AdvReac Severe stiffness Verified 07/06/17 12:53 haloperidol lactate AdvReac Severe stiffness Verified 07/06/17 12:53 [From Haldol] risperidone [From Risperdal] AdvReac Severe stiffness Verified 07/06/17 12:53 chlorpromazine AdvReac Verified 08/27/19 09:36 [From Thorazine] doxepin [From Sinequan] AdvReac Verified 08/27/19 09:36 ziprasidone [From Geodon] AdvReac Verified 08/27/19 09:36 Exam Limitations: No Limitations - Ebola screening Have you traveled outside of the country in the last 21 days: No Have you had contact with anyone from an Ebola affected area: No Have you been sick,other than usual withdrawal symptoms: No Do you have a fever: No - Review of Systems Constitutional: No Symptoms Reported EENT: reports: No Symptoms Reported Respiratory: reports: No Symptoms reported Cardiac: reports: No Symptoms Reported GI: reports: No Symptoms Reported : reports: No Symptoms Reported Musculoskeletal: reports: No Symptoms Reported Integumentary: reports: No Symptoms Reported Neuro: reports: No Symptoms reported Endocrine: reports: No Symptoms Reported Hematology: reports: No Symptoms Reported Psychiatric: reports: Judgement Intact, Mood/Affect Appropiate, Orientated x3, Agitated, Anxious Other Systems: Reviewed and Negative Patient History - Patient Medical History Hx Anemia: No Hx Asthma: Yes (dx 2009) Hx Chronic Obstructive Pulmonary Disease (COPD): No Hx Cancer: Yes (thyroid) Hx Cardiac Disorders: No Hx Congestive Heart Failure: No Hx Hypertension: Yes Hx Hypercholesterolemia: No Hx Pacemaker: No HX Cerebrovascular Accident: No Hx Seizures: No Hx Dementia: No Hx Diabetes: No Hx Gastrointestinal Disorders: No Hx Liver Disease: No Hx Genitourinary Disorders: No Hx Sexually Transmitted Disorders: No Hx Renal Disease (ESRD): Yes (bad kidneys due to high protein cannot take antiinflamatories) Hx Thyroid Disease: Yes (thyroid ca AND HYPOTHYROIDISM PST THYROIDECTOMY) Hx Human Immunodeficiency Virus (HIV): No Hx Hepatitis C: No Hx Depression: No (dx ) Hx Suicide Attempt: Yes (1987 & 2011) Hx Bipolar Disorder: Yes Hx Schizophrenia: No - Patient Surgical History Past Surgical History: Yes Hx Neurologic Surgery: No Hx Cataract Extraction: No Hx Cardiac Surgery: No Hx Lung Surgery: No Hx Breast Surgery: No Hx Breast Biopsy: No Hx Abdominal Surgery: No Hx Appendectomy: No Hx Cholecystectomy: No Hx Genitourinary Surgery: No Hx Section: No Hx Orthopedic Surgery: No Other Surgical History: SURGERY FOR CANCER OF THYROID IN 01/27 AND 02/28 and back of neck early Anesthesia Reaction: No - PPD History Previous Implant?: Yes Documented Results: Negative w/o proof Implanted On Prior [facility] Admission?: Yes Date: 04/05/17 Results: 0 mm PPD to be Administered?: Yes - Smoking Cessation Smoking history: Current every day smoker Aproximately how many cigarettes per day: 10 Cigars Per Day: 0 Hx Chewing Tobacco Use: No Initiated information on smoking cessation: Yes 'Breaking Loose' booklet given: 08/27/19 - Substances abused Heroin Substance route: Inhalation Frequency: Daily Amount used: 5 bags Age of first use: 36 Date of last use: 08/26/19 Cocaine Substance route: Inhalation Frequency: Daily Amount used: $50 Age of first use: 19 Date of last use: 08/25/19 Marijuana/Hashish Substance route: Smoking Frequency: Daily Amount used: $10 Age of first use: 7 Date of last use: 08/26/19 Alcohol Substance route: Oral Frequency: 1-2 times per week Amount used: 2 beers Age of first use: 36 Date of last use: 08/26/19 Admission Physical Exam BHS - Physical General Appearance: Yes: Moderate Distress, Tremorous, Irritable, Sweating, Anxious HEENTM: Yes: EOMI, Hearing grossly Normal, Normal ENT Inspection, Normocephalic, Normal Voice, GRANT, Pharynx Normal, Tm's normal Respiratory: Yes: Chest Non-Tender, Lungs Clear, Normal Breath Sounds, No Respiratory Distress, No Accessory Muscle Use Neck: Yes: No masses,lesions,Nodules, Supple, Trachea in good position, Other (scar from thyroidectomy) Breast: Yes: Within Normal Limits Cardiology: Yes: Regular Rhythm, Regular Rate, S1, S2 Abdominal: Yes: Normal Bowel Sounds, Non Tender, Flat, Soft Genitourinary: Yes: Within Normal Limits Back: Yes: Normal Inspection Musculoskeletal: Yes: full range of Motion, Gait Steady, Pelvis Stable Extremities: Yes: Normal Capillary Refill, Normal Inspection, Normal Range of Motion, Non-Tender 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: Yes: 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, Fully Oriented, Alert, Motor Strength 5/5, Normal Mood/Affect, Normal Response Integumentary: Yes: Normal Color, Warm Lymphatic: Yes: Within Normal Limits - Diagnostic (1) Carcinoma of thyroid Current Visit: No Status: Acute (2) OCD (obsessive compulsive disorder) Current Visit: No Status: Chronic (3) Opioid dependence with withdrawal Current Visit: No Status: Acute (4) Panic disorder Current Visit: No Status: Acute (5) Arthritis of back Current Visit: No Status: Chronic (6) Arthritis of both knees Current Visit: No Status: Chronic (7) Asthma Current Visit: No Status: Chronic Qualifiers: Asthma severity: mild Asthma persistence: intermittent Asthma complication type: with status asthmaticus Qualified Code(s): J45.22 - Mild intermittent asthma with status asthmaticus Cleared for Admission [facility] - Detox or Rehab [facility] Level of Care: Medically Managed Detox Regimen/Protocol: Methadone Claeared for Rehab Admission: No Screened but not Admitted - Documentation of Visit Screened but not Admitted: No Inpatient Rehab Admission - Rehab Decision to Admit Inpatient rehab admission?: No
[2019-08-27] MEDS ORDERED: hydrOXYzine PAMOATE 25 MG CAPSULE (FP) PO PRN (09:35)
[2019-08-27 09:41] VITALS: BMI 25.0
[2019-08-27] MEDS ORDERED: hydrOXYzine PAMOATE 25 MG CAPSULE (FP) PO SCH (10:00)
--- NOTE | 2019-08-27 10:01 | CONSULT ---
[facility] Psychiatric Consult - Data Date of interview: 08/27/19 Admission source: Self-referred Identifying data: Mr Gutierrez is a 48 years old single [place]-born male, unemployed, domiciled seeking detox treatment for alcohol, opioid and cocaine Substance Abuse History: Reports history of alcohol, heroin and cocaine use. Refer to addiction counselor's summary for further information Medical History: Significant for bronchial asthma, hypertension, osteoarthritis both knees, end-stage renal disease (ESRD), hypothyroidism secondary to thyroidectomy for thyroid cancer in 2013. Smokes 10 cigarettes daily Psychiatric History: Patient is known for three previous psychiatric admissions to this facility. Reportedly his first psychiatric contact occured ay age 9 when he was diagnosed with ADHD and treated with Ritalin. In his early 's his diagnosis was revised to Schizoaffective Disorder and OCD. Reports receiving psychiatric treatment while in detention on & off for 26 years. Reports multiple previous psychiatric hospitalizations at various institutions including [facility], [facility], [facility] and [facility]. Reports that he has not seen his psychiatrist for months but he is prescribed Rexulti, Prozac 60 mg/day and Depakote 500 mg.bid. Medications could not be verified. According to data from previous admission, he has been managed with various psychotropic medications over the years includind Haloperidol, Risperdal, Zyprexa, Seroquel, Depakote, Fluoxetine, Bupropion, Wellbutrin XL, Luvoxamine and many other molecules. Reportedly, he has had two previous suicide attempts (overdose with pills and hanging). At present, denies experiencing psychotic, manic or depressive symptoms. However, feels very anxious, complains of restless legs Physical/Sexual Abuse/Trauma History: Reportedly he has a heavy history of incarcerations (26 cumulative years). Released in 2016. Mental Status Exam - Mental Status Exam Alert and Oriented to: Time, Place, Person Cognitive Function: Fair Patient Appearance: Disheveled Mood: Anxious, Irritable Affect: Appropriate Patient Behavior: Cooperative (superficially) Speech Pattern: Clear Voice Loudness: Normal Thought Process: Intact, Goal Oriented Thought Disorder: Not Present Hallucinations: Denies Suicidal Ideation: Denies Homicidal Ideation: Denies Insight/Judgement: Poor Sleep: Poorly Appetite: Fair Muscle strength/Tone: Normal Gait/Station: Normal Psychiatric Findings - Problem List ([place] 1, 2,3) (1) Schizoaffective disorder, depressive type Current Visit: No Status: Chronic (2) Nicotine dependence Current Visit: Yes Status: Chronic (3) OCD (obsessive compulsive disorder) Current Visit: No Status: Chronic (4) Substance induced mood disorder Current Visit: Yes Status: Acute (5) Substance-induced sleep disorder Current Visit: Yes Status: Acute (6) Uncomplicated opioid dependence Current Visit: Yes Status: Acute (7) Cocaine dependence, uncomplicated Current Visit: Yes Status: Acute (8) Cannabis dependence, uncomplicated Current Visit: Yes Status: Acute (9) Alcohol abuse Current Visit: Yes Status: Acute (10) Nicotine dependence Current Visit: No Status: Chronic (11) Carcinoma of thyroid Current Visit: No Status: Acute (12) Asthma Current Visit: No Status: Chronic Qualifiers: Asthma severity: mild Asthma persistence: intermittent Asthma complication type: with status asthmaticus Qualified Code(s): J45.22 - Mild intermittent asthma with status asthmaticus (13) Hypertension Current Visit: No Status: Chronic Qualifiers: Hypertension type: essential hypertension Qualified Code(s): I10 - Essential (primary) hypertension (14) Hypothyroidism Current Visit: No Status: Chronic Qualifiers: Hypothyroidism type: postoperative Qualified Code(s): E89.0 - Postprocedural hypothyroidism (15) Iron deficiency anemia Current Visit: No Status: Chronic (16) Osteoarthritis of both knees Current Visit: Yes Status: Chronic - Initial Treatment Plan Initial Treatment Plan: 1) Continue Prozac 60 mg po daily and Depakote 500 mg po BID. 2) Resulti is not available in facility pharmacy. 3)Valproic Acid Serum level in the morning. 4) Continue inpatient detoxification
[2019-08-27] MEDS: NICOTINE 7 MG/24 HOURS TOPICAL PATCH TD SCH (10:40)
[2019-08-27] MEDS: ENALAPRIL MALEATE 10 MG TABLET (FP) PO SCH (10:46)
[2019-08-27] MEDS: PRENATAL VITAMINS W/ FOLIC ACID TABLET (FP) PO SCH (10:47)
[2019-08-27] MEDS: amLODIPine BESYLATE 10 MG TABLET (FP) PO SCH (10:47)
[2019-08-27] MEDS: METHOCARBAMOL 500 MG TABLET PO PRN ×2 (10:52→22:34)
[2019-08-27] MEDS ORDERED: TRIMETHOBENZAMIDE HCL 300 MG CAPSULE PO PRN (11:08)
[2019-08-27] MEDS ORDERED: MELATONIN 5 MG TABLETS PO PRN (11:09)
[2019-08-27 16:14] LABS: HEMATOCRIT 32.5 % (35.4-49); HEMOGLOBIN 10.7 GM/dL (11.7-16.9); MCH 28.8 pg (25.7-33.7); MCHC 32.8 g/dl (32.0-35.9); MEAN CELL VOLUME 87.7 fl (80-96); MEAN PLT VOLUME 7.5 fl (7.5-11.1); PLATELET COUNT 356 K/MM3 (134-434); RBC 3.71 M/mm3 (4.00-5.60); WHITE BLOOD COUNT 4.9 K/mm3 (4.0-10.0)
[2019-08-27 16:31] LABS: ALBUMIN 3.8 g/dl (3.4-5.0); BILIRUBIN,TOTAL 0.5 mg/dL (0.2-1); BLOOD UREA NITROGEN 20.8 mg/dL (7-18); CALCIUM 7.8 mg/dL (8.5-10.1); CREATININE 1.3 mg/dL (0.55-1.3); POTASSIUM 4.6 mmol/L (3.5-5.1); TOT PROT 7.4 g/dl (6.4-8.2)
[2019-08-27] MEDS ORDERED: THIAMINE HCL 100 MG TABLET (FP) PO SCH (22:00)
[2019-08-27] MEDS ORDERED: MELATONIN 5 MG TABLETS PO SCH (22:00)
[2019-08-27] MEDS: DIVALPROEX SODIUM 500 MG TABLET E.C. PO SCH (22:34)
[2019-08-27] MEDS: diazePAM 5 MG TABLET PO PRN (22:34)
[2019-08-28] MEDS ORDERED: LEVOTHYROXINE NA 25 MCG TABLET (FP) PO SCH (07:00)
[2019-08-28] MEDS: diazePAM 5 MG TABLET PO PRN ×2 (07:05→14:05)
[2019-08-28] MEDS: LEVOTHYROXINE 100 MCG, LEVOTHYROXINE 50 MCG PO SCH ×2 (07:08→07:12)
[2019-08-28] MEDS ORDERED: LEVOTHYROXINE NA 25 MCG TABLET (FP) ONE (07:11)
[2019-08-28] MEDS ORDERED: LEVOTHYROXINE NA 100 MCG TABLET (FP) ONE (07:11)
[2019-08-28] MEDS ORDERED: IBUPROFEN 400 MG TABLET (FP) PO PRN (09:57)
--- NOTE | 2019-08-28 09:58 | PN ---
BHS COWS - Scale Resting Pulse: 0= [place] 80 or Below Sweatin= Chills/Flushing Restless Observation: 1= Difficult to Sit Still Pupil Size: 0= Normal to Room Light Bone or Joint Aches: 2= Severe Diffuse Aches Runny Nose/ Eye Tearin= None GI Upset > 30mins: 0= None Tremor Observation of Outstretched Hands: 1= Tremor [place], Not Seen Yawning Observation: 2= >3x During Session Anxiety or Irritability: 2=Irritable/Anxious Goose Flesh Skin: 0=Smooth Skin COWS Score: 9 BHS Progress Note (SOAP) Subjective: body aches sweats shakes interrupted sleep agitation Objective: 08/28/19 09:58 Vital Signs Temperature 97.5 F L 08/28/19 05:32 Pulse Rate 82 08/28/19 05:32 Respiratory Rate 18 08/28/19 05:32 Blood Pressure 138/92 08/28/19 05:32 O2 Sat by Pulse Oximetry (%) 100 08/28/19 05:32 Laboratory Tests 08/27/19 08/27/19 08/27/19 10:00 10:00 10:00 WBC 4.9 RBC 3.71 L Hgb 10.7 L Hct 32.5 L MCV 87.7 MCH 28.8 MCHC 32.8 RDW 18.0 H Plt Count 356 D MPV 7.5 D Sodium 138 Potassium 4.6 Chloride 103 Carbon Dioxide 30 Anion Gap 6 L BUN 20.8 H Creatinine 1.3 Est GFR (CKD-EPI)AfAm 73.74 Est GFR (CKD-EPI)NonAf 63.62 Random Glucose 88 Calcium 7.8 L Total Bilirubin 0.5 AST 34 ALT 23 Alkaline Phosphatase 92 Total Protein 7.4 Albumin 3.8 Valproic Acid Syphilis Serology Non-reactive 08/27/19 12:15 WBC RBC Hgb Hct MCV MCH MCHC RDW Plt Count MPV Sodium Potassium Chloride Carbon Dioxide Anion Gap BUN Creatinine Est GFR (CKD-EPI)AfAm Est GFR (CKD-EPI)NonAf Random Glucose Calcium Total Bilirubin AST ALT Alkaline Phosphatase Total Protein Albumin Valproic Acid < 3.0 L Syphilis Serology labs noted aaox3 ambulating no acute distress Assessment: 08/28/19 10:16 withdrawals Plan: continue detox motrin 800mg tid prn roboxin prn
[2019-08-28] MEDS ORDERED: METHADONE (DETOX) 20 MG, METHADONE (DETOX) 5 MG PO ONE ×2 (10:00→10:09)
[2019-08-28] MEDS ORDERED: FLUoxetine HCL 20 MG CAPSULE PO SCH (10:00)
[2019-08-28] MEDS ORDERED: METHADONE HCL 10 MG TABLET (FOR DETOX USE ONLY) PO ONE (10:09)
[2019-08-28] MEDS: METHOCARBAMOL 500 MG TABLET PO PRN (10:12)
[2019-08-28] MEDS: ENALAPRIL MALEATE 10 MG TABLET (FP) PO SCH (10:13)
[2019-08-28] MEDS: PRENATAL VITAMINS W/ FOLIC ACID TABLET (FP) PO SCH (10:13)
[2019-08-28] MEDS: DIVALPROEX SODIUM 500 MG TABLET E.C. PO SCH (10:13)
[2019-08-28] MEDS: amLODIPine BESYLATE 10 MG TABLET (FP) PO SCH (10:13)
[2019-08-28] MEDS: NICOTINE 7 MG/24 HOURS TOPICAL PATCH TD SCH (10:14)
[2019-08-28] MEDS ORDERED: METHADONE HCL 5 MG TABLET (FOR DETOX USE ONLY) ONE (10:31)
[2019-08-28] MEDS ORDERED: METHADONE HCL 10 MG TABLET (FOR DETOX USE ONLY) ONE (10:32)
--- NOTE | 2019-08-28 13:21 | PN ---
BHS Progress Note Note: pt c/o right knee pain d/t his cramps and withdrawals. analgesic balm and annetta bandage ordered for comfort. pt is to continue asking for motrin and roboxin as ordered prn. pt in agreement
[2019-08-28] MEDS ORDERED: METHYL SALICYLATE/MENTHOL OINT 30 GM TUBE TP SCH (13:45)
[2019-08-28] MEDS ORDERED: METHOCARBAMOL 750 MG TABLET PO PRN (13:59)
--- NOTE | 2019-08-28 14:01 | PN ---
BHS Progress Note Note: pt states that the visitiril aggravates his muscle cramping and makes it worse. there fore, visitril has been d/c. roboxin increased to 750mg q6hrs prn. pt in agreement.
[2019-08-28 14:34] VITALS: BP 126/84; PULSE 78; TEMP 97.7
--- NOTE | 2019-08-28 15:54 | PN ---
[facility] Progress Note Note: pt was requesting to see psych for a second visit regarding more medication because he is could be having a panic attack. pt, , myself, Samantha and counselor all in office as witness when he became irate when psych said the he is already taking the proper medication for his psych needs and he stormed out of the office. pt started to verbally treat to hurt Dr. Huffman and myself. Pt went into his room and threw out the side table into the hallway. Pt started to pace up and down the hallway and threatening to hurt me and . manager social responsibility Mare and Clinical press hand supervisor Pam and Sofia Roque director were also present and in agreement with involuntary discharge. Security was initiated to come up to the unit and have pt escorted off the unit. Pt is involuntary discharge d/t violent and threatening behaviour.
--- NOTE | 2019-08-28 15:54 | DS ---
[facility] Detox Discharge Summary Admission Date: 08/27/19 - History Present History: Cannabis Dependence, Opioid Dependence - Physical Exam Results Vital Signs: Vital Signs Temperature 97.7 F 08/28/19 12:35 Pulse Rate 78 08/28/19 12:35 Respiratory Rate 08/28/19 12:35 Blood Pressure 126/84 08/28/19 12:35 O2 Sat by Pulse Oximetry (%) 98 08/28/19 12:35 Pertinent Admission Physical Exam Findings: Vital Signs Temperature 97.7 F 08/28/19 12:35 Pulse Rate 78 08/28/19 12:35 Respiratory Rate 08/28/19 12:35 Blood Pressure 126/84 08/28/19 12:35 O2 Sat by Pulse Oximetry (%) 98 08/28/19 12:35 Laboratory Tests 08/27/19 08/27/19 08/27/19 10:00 10:00 10:00 WBC 4.9 RBC 3.71 L Hgb 10.7 L Hct 32.5 L MCV 87.7 MCH 28.8 MCHC 32.8 RDW 18.0 H Plt Count 356 D MPV 7.5 D Sodium 138 Potassium 4.6 Chloride 103 Carbon Dioxide 30 Anion Gap 6 L BUN 20.8 H Creatinine 1.3 Est GFR (CKD-EPI)AfAm 73.74 Est GFR (CKD-EPI)NonAf 63.62 Random Glucose 88 Calcium 7.8 L Total Bilirubin 0.5 AST 34 ALT 23 Alkaline Phosphatase 92 Total Protein 7.4 Albumin 3.8 Valproic Acid Syphilis Serology Non-reactive COVID-19 (FRANCISCO) 08/27/19 08/27/19 11:00 12:15 WBC RBC Hgb Hct MCV MCH MCHC RDW Plt Count MPV Sodium Potassium Chloride Carbon Dioxide Anion Gap BUN Creatinine Est GFR (CKD-EPI)AfAm Est GFR (CKD-EPI)NonAf Random Glucose Calcium Total Bilirubin AST ALT Alkaline Phosphatase Total Protein Albumin Valproic Acid < 3.0 L Syphilis Serology COVID-19 (FRANCISCO) Not detected aaox3 ambulating no acute distress pt was involuntary discharged d/t aggressive behavior towards entire staff. - Treatment Hospital Course: Rehab Referral Accepted - Medication Discharge Medications: Ambulatory Orders Albuterol Sulfate Inhaler - [Ventolin HFA Inhaler -] 2 puff IH Q4H PRN #1 inhaler 04/08/17 Amlodipine Besylate [Norvasc -] 10 mg PO DAILY #30 tablet 04/08/17 Enalapril Maleate [Vasotec -] 10 mg PO DAILY #30 tablet 04/08/17 Levothyroxine [Synthroid -] 150 mcg PO DAILY@0700 #30 tablet 04/08/17 Fluoxetine HCl [Prozac -] 60 mg PO DAILY 08/27/19 - Diagnosis (1) Cannabis dependence, uncomplicated Status: Chronic (2) Carcinoma of thyroid Status: Suspected (3) Cocaine dependence, uncomplicated Status: Chronic (4) Opioid dependence with withdrawal Status: Chronic (5) Panic disorder Status: Acute (6) Substance induced mood disorder Status: Acute (7) Substance-induced sleep disorder Status: Acute (8) Arthritis of both knees Status: Chronic (9) Asthma Status: Chronic Qualifiers: Asthma severity: mild Asthma persistence: intermittent Asthma complication type: with status asthmaticus Qualified Code(s): J45.22 - Mild intermittent asthma with status asthmaticus (10) Cocaine dependence Status: Chronic Qualifiers: Substance use status: uncomplicated Qualified Code(s): F14.20 - Cocaine dependence, uncomplicated (11) History of OCD (obsessive compulsive disorder) Status: Chronic (12) History of thyroidectomy Status: Chronic (13) Hypertension Status: Chronic Qualifiers: Hypertension type: essential hypertension Qualified Code(s): I10 - Essential (primary) hypertension (14) Hypothyroidism Status: Chronic Qualifiers: Hypothyroidism type: postoperative Qualified Code(s): E89.0 - Postprocedural hypothyroidism (15) Nicotine dependence Status: Chronic Qualifiers: Nicotine product type: cigarettes Substance use status: uncomplicated Qualified Code(s): F17.210 - Nicotine dependence, cigarettes, uncomplicated (16) OCD (obsessive compulsive disorder) Status: Chronic (17) Osteoarthritis of both knees Status: Chronic (18) Polysubstance abuse Status: Chronic (19) Schizoaffective disorder, depressive type Status: Chronic (20) Use of cane as ambulatory aid Status: Chronic (21) Schizoaffective disorder Status: Suspected Qualifiers: Schizoaffective disorder type: bipolar Qualified Code(s): F25.0 - Schizoaffective disorder, bipolar type - AMA Did Patient Leave Against Medical Advice: No (INVOLUNTARY DISCHARGE)
[2019-08-29] MEDS ORDERED: METHADONE HCL 10 MG TABLET (FOR DETOX USE ONLY) PO ONE (10:00)
[2019-08-30] MEDS ORDERED: METHADONE (DETOX) 10 MG, METHADONE (DETOX) 5 MG PO ONE (10:00)
[2019-08-31] MEDS ORDERED: METHADONE HCL 10 MG TABLET (FOR DETOX USE ONLY) PO ONE (10:00)
[2019-09-01] MEDS ORDERED: METHADONE HCL 5 MG TABLET (FOR DETOX USE ONLY) PO ONE (06:00)
== END 2019-08-28 15:46 | disposition left against medical advice (07) | DRG 773 ==
LOC: YASAS 08:22 → Y6N 09:15
PROVIDERS: ADMIT Allergy & Immunology; ATTEND Allergy & Immunology
PROC: HZ2ZZZZ Detoxification Services for Substance Abuse Treatment (ICD-10-PCS; principal; 2019-08-27)
DX: F11.23 Opioid dependence with withdrawal (principal); F10.230 Alcohol dependence with withdrawal, uncomplicated; F14.20 Cocaine dependence, uncomplicated; F12.20 Cannabis dependence, uncomplicated; F17.210 Nicotine dependence, cigarettes, uncomplicated; F19.282 Other psychoactive substance dependence with psychoactive substance-induced sleep disorder; F19.24 Other psychoactive substance dependence with psychoactive substance-induced mood disorder; F25.1 Schizoaffective disorder, depressive type; F42.9 Obsessive-compulsive disorder, unspecified; F41.0 Panic disorder [episodic paroxysmal anxiety]; I12.0 Hypertensive chronic kidney disease with stage 5 chronic kidney disease or end stage renal disease; N18.6 End stage renal disease; J45.22 Mild intermittent asthma with status asthmaticus; D50.9 Iron deficiency anemia, unspecified; E89.0 Postprocedural hypothyroidism; M17.0 Bilateral primary osteoarthritis of knee; Z85.850 Personal history of malignant neoplasm of thyroid; Z88.8 Allergy status to other drugs, medicaments and biological substances; Z91.5 Personal history of self-harm; Z56.0 Unemployment, unspecified
CPT/HCPCS: 36415; 80053; 80164; 85027; 86780; J0735; U0003

== ENCOUNTER 2020-03-13 15:48 | Inpatient (IN) | payer OTHER ==
[2020-03-13 18:04] VITALS: BMI 26.6
[2020-03-13] MEDS ORDERED: METHOCARBAMOL 500 MG TABLET PO PRN (20:48)
[2020-03-13] MEDS ORDERED: ACETAMINOPHEN 325 MG TABLET (FP) PO PRN ×2 (20:48)
[2020-03-13] MEDS ORDERED: MAGNESIUM CITRATE 300 ML BOTTLE PO PRN (20:48)
[2020-03-13] MEDS ORDERED: guaiFENesin 200 MG/10 ML 10 ML UNIT-DOSE CUPS PO PRN (20:48)
[2020-03-13] MEDS ORDERED: MAG HYDROX/AL HYDROX/SIMETH 30 ML UNIT-DOSE CUP PO PRN (20:48)
[2020-03-13] MEDS ORDERED: MENTHOL/PHENOL 1 EACH UD MM PRN (20:48)
[2020-03-13] MEDS ORDERED: MAGNESIUM HYDROX 2400MG/30ML ORAL SUSPENSION 30 ML CUP PO PRN (20:48)
[2020-03-13] MEDS ORDERED: ONDANSETRON *ODT* 4 MG TABLET SL PRN (20:48)
[2020-03-13] MEDS ORDERED: chlordiazePOXIDE HCL 25 MG CAPSULE PO PRN (20:48)
[2020-03-13] MEDS ORDERED: BISMUTH SUBSALICYLATE 524 MG/30 ML UD PO PRN (20:48)
[2020-03-13] MEDS ORDERED: NICOTINE POLACRILEX 4 MG GUM BUC PRN (20:48)
[2020-03-14] MEDS: MELATONIN 5 MG TABLETS PO SCH ×2 (00:03→22:00)
[2020-03-14] MEDS: THIAMINE HCL 100 MG TABLET (FP) PO SCH ×2 (00:03→22:00)
[2020-03-14] MEDS: chlordiazePOXIDE HCL 25 MG CAPSULE PO SCH ×5 (00:03→22:01)
[2020-03-14] MEDS ORDERED: METHADONE HCL 10 MG TABLET PO ONE (08:34)
[2020-03-14] MEDS ORDERED: METHADONE HCL 10 MG TABLET ONE (09:40)
[2020-03-14] MEDS ORDERED: METHADONE HCL 40 MG DISPERSABLE TABLET ONE (09:40)
[2020-03-14] MEDS ORDERED: METHADONE 40 MG, METHADONE 30 MG PO ONE (09:45)
[2020-03-14] MEDS ORDERED: LEVOTHYROXINE 100 MCG, LEVOTHYROXINE 50 MCG PO ONE (10:15)
[2020-03-14] MEDS: PRENATAL VITAMINS W/ FOLIC ACID TABLET (FP) PO SCH (10:28)
[2020-03-14] MEDS: amLODIPine BESYLATE 10 MG TABLET (FP) PO SCH (10:29)
[2020-03-14] MEDS: ENALAPRIL MALEATE 10 MG TABLET PO SCH (11:54)
[2020-03-14 12:33] LABS: HEMATOCRIT 30.2 % (35.4-49); HEMOGLOBIN 10.1 GM/dL (11.7-16.9); MCH 28.1 pg (25.7-33.7); MCHC 33.3 g/dl (32.0-35.9); MEAN CELL VOLUME 84.3 fl (80-96); MEAN PLT VOLUME 7.3 fl (7.5-11.1); PLATELET COUNT 309 K/MM3 (134-434); RBC 3.58 M/mm3 (4.00-5.60); RDW 14.5 % (11.9-15.9); WHITE BLOOD COUNT 4.7 K/mm3 (4.0-10.0)
[2020-03-14 12:34] LABS: POTASSIUM 3.7 mmol/L (3.5-5.1)
[2020-03-14 12:37] LABS: ALBUMIN 3.2 g/dl (3.4-5.0); BLOOD UREA NITROGEN 16.1 mg/dL (7-18)
[2020-03-14 12:41] LABS: CREATININE 1.2 mg/dL (0.55-1.3)
[2020-03-14 12:42] LABS: TOT PROT 6.2 g/dl (6.4-8.2)
[2020-03-14] MEDS: DOCUSATE SODIUM 100 MG CAPSULE (FP) PO SCH ×2 (15:43→22:00)
[2020-03-14] MEDS ORDERED: ALBUTEROL SO4 HFA INHALER IH PRN (19:37)
[2020-03-14 19:39] LABS: URINE APPEARANCE CLEAR; URINE BILIRUBIN NEGATIVE (NEGATIVE); URINE COLOR YELLOW; URINE GLUCOSE (UA) NEGATIVE (NEGATIVE); URINE KETONE NEGATIVE (NEGATIVE); URINE LEUK ESTERASE NEGATIVE (NEGATIVE); URINE NITRITE NEGATIVE (NEGATIVE); URINE PROTEIN NEGATIVE (NEGATIVE); URINE UROBILINOGEN 0.2 mg/dL (0.2-1.0)
[2020-03-14] MEDS ORDERED: LIDOCAINE 5% TOPICAL PATCH TP PRN (20:00)
[2020-03-14] MEDS: SENNOSIDES/DOCUSATE COMBO (SENNA PLUS) TABLET (UD) PO PRN (22:01)
[2020-03-14] MEDS: MIRTAZAPINE 15 MG TABLET (FP) PO SCH (22:03)
[2020-03-15] MEDS ORDERED: LEVOTHYROXINE NA 25 MCG TABLET (FP) PO SCH (07:00)
[2020-03-15] MEDS: chlordiazePOXIDE HCL 25 MG CAPSULE PO SCH ×4 (07:05→22:28)
[2020-03-15] MEDS: DOCUSATE SODIUM 100 MG CAPSULE (FP) PO SCH ×3 (08:04→22:28)
[2020-03-15] MEDS: METHADONE HCL 40 MG DISPERSABLE TABLET PO SCH (08:04)
[2020-03-15] MEDS: LEVOTHYROXINE 100 MCG, LEVOTHYROXINE 50 MCG PO SCH (08:05)
[2020-03-15] MEDS: LIDOCAINE PATCH REMOVAL MC SCH (08:17)
[2020-03-15] MEDS ORDERED: MASKS NR ONE (09:53)
[2020-03-15] MEDS: PRENATAL VITAMINS W/ FOLIC ACID TABLET (FP) PO SCH (09:54)
[2020-03-15] MEDS: amLODIPine BESYLATE 10 MG TABLET (FP) PO SCH (09:55)
[2020-03-15] MEDS: ENALAPRIL MALEATE 10 MG TABLET PO SCH (09:55)
[2020-03-15] MEDS ORDERED: PNEUMOC 13-VAL CONJ-DIP CRM/PF 0.5 ML DISP.SYRIN IM ONE (12:00)
[2020-03-15] MEDS ORDERED: FLU VACCINE (FLULAVAL) PF 60 MCG/0.5 ML SYRINGE 2020-2021 IM ONE (12:00)
[2020-03-15] MEDS ORDERED: PNEUMOCOCCAL 23 VACCINE 0.5 ML VIAL IM ONE (12:00)
[2020-03-15] MEDS: IBUPROFEN 400 MG TABLET (FP) PO PRN (16:26)
[2020-03-15] MEDS ORDERED: hydrOXYzine PAMOATE 25 MG CAPSULE (FP) PO ONE (19:33)
[2020-03-15] MEDS: SENNOSIDES/DOCUSATE COMBO (SENNA PLUS) TABLET (UD) PO PRN (20:37)
[2020-03-15] MEDS ORDERED: SENNOSIDES 8.6MG TABLET (FP) PO ONE (22:00)
[2020-03-15] MEDS: THIAMINE HCL 100 MG TABLET (FP) PO SCH (22:28)
[2020-03-15] MEDS: MELATONIN 5 MG TABLETS PO SCH (22:29)
[2020-03-15] MEDS: MIRTAZAPINE 15 MG TABLET (FP) PO SCH (22:29)
[2020-03-16] MEDS ORDERED: chlordiazePOXIDE HCL 10 MG CAPSULE PO PRN
[2020-03-16] MEDS: METHADONE HCL 40 MG DISPERSABLE TABLET PO SCH (07:00)
[2020-03-16] MEDS: DOCUSATE SODIUM 100 MG CAPSULE (FP) PO SCH ×3 (07:00→22:21)
[2020-03-16] MEDS: chlordiazePOXIDE HCL 10 MG CAPSULE PO SCH ×4 (07:00→22:21)
[2020-03-16] MEDS: LEVOTHYROXINE 100 MCG, LEVOTHYROXINE 50 MCG PO SCH (07:01)
[2020-03-16] MEDS: LIDOCAINE PATCH REMOVAL MC SCH (08:07)
[2020-03-16] MEDS: PRENATAL VITAMINS W/ FOLIC ACID TABLET (FP) PO SCH (11:10)
[2020-03-16] MEDS: ENALAPRIL MALEATE 10 MG TABLET PO SCH (11:10)
[2020-03-16] MEDS: amLODIPine BESYLATE 10 MG TABLET (FP) PO SCH (11:10)
[2020-03-16] MEDS: MIRTAZAPINE 15 MG TABLET (FP) PO SCH (22:22)
[2020-03-16] MEDS: THIAMINE HCL 100 MG TABLET (FP) PO SCH (22:22)
[2020-03-16] MEDS: MELATONIN 5 MG TABLETS PO SCH (22:23)
[2020-03-17] MEDS: chlordiazePOXIDE HCL 10 MG CAPSULE PO SCH ×2 (06:08→17:37)
[2020-03-17] MEDS: DOCUSATE SODIUM 100 MG CAPSULE (FP) PO SCH ×3 (06:09→22:16)
[2020-03-17] MEDS: METHADONE HCL 40 MG DISPERSABLE TABLET PO SCH (06:10)
[2020-03-17] MEDS: LEVOTHYROXINE 100 MCG, LEVOTHYROXINE 50 MCG PO SCH (06:10)
[2020-03-17] MEDS: LIDOCAINE PATCH REMOVAL MC SCH (07:52)
[2020-03-17] MEDS: ENALAPRIL MALEATE 10 MG TABLET PO SCH (10:27)
[2020-03-17] MEDS: amLODIPine BESYLATE 10 MG TABLET (FP) PO SCH (10:27)
[2020-03-17] MEDS: PRENATAL VITAMINS W/ FOLIC ACID TABLET (FP) PO SCH (10:27)
[2020-03-17] MEDS: MELATONIN 5 MG TABLETS PO SCH (22:16)
[2020-03-17] MEDS: THIAMINE HCL 100 MG TABLET (FP) PO SCH (22:16)
[2020-03-17] MEDS: MIRTAZAPINE 15 MG TABLET (FP) PO SCH (22:16)
[2020-03-18] MEDS: IBUPROFEN 400 MG TABLET (FP) PO PRN (03:17)
[2020-03-18] MEDS ORDERED: chlordiazePOXIDE HCL 10 MG CAPSULE PO ONE (05:00)
[2020-03-18 06:46] VITALS: TEMP 97.3
[2020-03-18] MEDS: METHADONE HCL 40 MG DISPERSABLE TABLET PO SCH (07:08)
[2020-03-18] MEDS: DOCUSATE SODIUM 100 MG CAPSULE (FP) PO SCH (07:09)
[2020-03-18 09:20] VITALS: BP 147/89; PULSE 76
== END 2020-03-18 10:04 | disposition home or self-care (01) | DRG 773 ==
LOC: YASAS 15:48 → Y3N 21:07
PROVIDERS: ADMIT Allergy & Immunology; ATTEND Allergy & Immunology
PROC: HZ2ZZZZ Detoxification Services for Substance Abuse Treatment (ICD-10-PCS; principal; 2020-03-13)
DX: F10.230 Alcohol dependence with withdrawal, uncomplicated (principal); F11.23 Opioid dependence with withdrawal; F14.20 Cocaine dependence, uncomplicated; F12.20 Cannabis dependence, uncomplicated; F19.282 Other psychoactive substance dependence with psychoactive substance-induced sleep disorder; F19.24 Other psychoactive substance dependence with psychoactive substance-induced mood disorder; F25.0 Schizoaffective disorder, bipolar type; F31.9 Bipolar disorder, unspecified; F42.9 Obsessive-compulsive disorder, unspecified; D64.9 Anemia, unspecified; G47.00 Insomnia, unspecified; I12.0 Hypertensive chronic kidney disease with stage 5 chronic kidney disease or end stage renal disease; N18.6 End stage renal disease; J45.20 Mild intermittent asthma, uncomplicated; E89.0 Postprocedural hypothyroidism; M17.0 Bilateral primary osteoarthritis of knee; R94.5 Abnormal results of liver function studies; R94.31 Abnormal electrocardiogram [ECG] [EKG]; Z20.822 Contact with and (suspected) exposure to COVID-19; Z99.89 Dependence on other enabling machines and devices; Z88.8 Allergy status to other drugs, medicaments and biological substances; Z91.5 Personal history of self-harm; Z91.19 Patient's noncompliance with other medical treatment and regimen
CPT/HCPCS: 36415; 80053; 81003; 85027; 86780; C9803; U0003

== ENCOUNTER 2020-06-25 18:57 | Inpatient (IN) | payer OTHER ==
[2020-06-26 00:26] VITALS: BMI 25.3
[2020-06-26] MEDS ORDERED: MAG HYDROX/AL HYDROX/SIMETH 30 ML UNIT-DOSE CUP PO PRN (01:25)
[2020-06-26] MEDS ORDERED: ONDANSETRON *ODT* 4 MG TABLET SL PRN (01:25)
[2020-06-26] MEDS ORDERED: NICOTINE POLACRILEX 2 MG GUM BUC PRN (01:25)
[2020-06-26] MEDS ORDERED: ACETAMINOPHEN 325 MG TABLET (FP) PO PRN ×2 (01:25)
[2020-06-26] MEDS ORDERED: MAGNESIUM HYDROX 2400MG/30ML ORAL SUSPENSION 30 ML CUP PO PRN (01:25)
[2020-06-26] MEDS ORDERED: MENTHOL/PHENOL 1 EACH UD MM PRN (01:25)
[2020-06-26] MEDS ORDERED: BISMUTH SUBSALICYLATE 524 MG/30 ML UD PO PRN (01:25)
[2020-06-26] MEDS ORDERED: MAGNESIUM CITRATE 300 ML BOTTLE PO PRN (01:25)
[2020-06-26] MEDS ORDERED: METHOCARBAMOL 500 MG TABLET ONE (01:56)
[2020-06-26] MEDS ORDERED: chlordiazePOXIDE HCL 25 MG CAPSULE ONE ×2 (01:56→06:24)
[2020-06-26] MEDS: METHOCARBAMOL 500 MG TABLET PO PRN ×2 (01:58→12:45)
[2020-06-26] MEDS: chlordiazePOXIDE HCL 25 MG CAPSULE PO PRN ×3 (01:58→20:42)
[2020-06-26] MEDS: chlordiazePOXIDE HCL 25 MG CAPSULE PO SCH ×4 (06:25→23:10)
[2020-06-26] MEDS ORDERED: METHADONE HCL 10 MG TABLET PO SCH (08:15)
[2020-06-26] MEDS ORDERED: METHADONE HCL 10 MG TABLET ONE (08:50)
[2020-06-26] MEDS ORDERED: METHADONE HCL 40 MG DISPERSABLE TABLET ONE (08:52)
[2020-06-26] MEDS ORDERED: ALBUTEROL SO4 HFA INHALER IH PRN (08:59)
[2020-06-26] MEDS: METHADONE 40 MG, METHADONE 30 MG PO SCH (08:59)
[2020-06-26 12:08] LABS: CHLORIDE 106 mmol/L (98-107); SODIUM 138 mmol/L (136-145)
[2020-06-26 12:11] LABS: ALBUMIN 3.2 g/dl (3.4-5.0); ANION GAP 4 MMOL/L (8-16); BLOOD UREA NITROGEN 17.6 mg/dL (7-18); CO2 28 mmol/L (21-32); GLUCOSE,RANDOM 103 mg/dL (74-106)
[2020-06-26 12:12] LABS: HEMATOCRIT 28.8 % (35.4-49); HEMOGLOBIN 9.7 GM/dL (11.7-16.9); MCH 27.9 pg (25.7-33.7); MCHC 33.7 g/dl (32.0-35.9); MEAN CELL VOLUME 82.6 fl (80-96); PLATELET COUNT 392 K/MM3 (134-434); RBC 3.49 M/mm3 (4.00-5.60); RDW 15.8 % (11.9-15.9)
[2020-06-26 12:14] LABS: CREATININE 1.2 mg/dL (0.55-1.3); SGOT/AST 40 U/L (15-37); SGPT/ALT 28 U/L (13-61)
[2020-06-26 12:15] LABS: BILIRUBIN,TOTAL 0.3 mg/dL (0.2-1)
[2020-06-26 12:16] LABS: TOT PROT 6.5 g/dl (6.4-8.2)
[2020-06-26 12:17] LABS: ALK PHOS 73 U/L (45-117)
[2020-06-26 12:21] LABS: CALCIUM 6.9 mg/dL (8.5-10.1)
[2020-06-26] MEDS: PRENATAL VITAMINS W/ FOLIC ACID TABLET (FP) PO SCH (12:45)
[2020-06-26] MEDS: NICOTINE 14 MG/24 HOURS TOPICAL PATCH TD SCH (12:45)
[2020-06-26] MEDS: amLODIPine BESYLATE 10 MG TABLET (FP) PO SCH (13:17)
[2020-06-26] MEDS: ENALAPRIL MALEATE 10 MG TABLET PO SCH (15:10)
[2020-06-26] MEDS: LIDOCAINE 5% TOPICAL PATCH TP SCH (15:10)
[2020-06-26] MEDS ORDERED: cloNIDine HCL 0.1 MG TABLET PO PRN (15:20)
[2020-06-26] MEDS: THIAMINE HCL 100 MG TABLET (FP) PO SCH (23:10)
[2020-06-26] MEDS: DIVALPROEX SODIUM 250 MG TABLET E.C. PO SCH (23:10)
[2020-06-26] MEDS: LIDOCAINE PATCH REMOVAL MC SCH (23:12)
[2020-06-26] MEDS: MELATONIN 5 MG TABLETS PO SCH (23:12)
[2020-06-27] MEDS ORDERED: METHADONE HCL 10 MG TABLET ONE (04:34)
[2020-06-27] MEDS ORDERED: METHADONE HCL 40 MG DISPERSABLE TABLET ONE (04:35)
[2020-06-27] MEDS: LEVOTHYROXINE 100 MCG, LEVOTHYROXINE 50 MCG PO SCH (06:38)
[2020-06-27] MEDS ORDERED: LEVOTHYROXINE NA 25 MCG TABLET (FP) PO SCH (07:00)
[2020-06-27] MEDS: METHADONE 40 MG, METHADONE 30 MG PO SCH (07:56)
[2020-06-27] MEDS: chlordiazePOXIDE HCL 25 MG CAPSULE PO SCH ×4 (08:00→22:07)
[2020-06-27] MEDS: ENALAPRIL MALEATE 10 MG TABLET PO SCH (10:09)
[2020-06-27] MEDS: NICOTINE 14 MG/24 HOURS TOPICAL PATCH TD SCH (10:09)
[2020-06-27] MEDS: amLODIPine BESYLATE 10 MG TABLET (FP) PO SCH (10:09)
[2020-06-27] MEDS: PRENATAL VITAMINS W/ FOLIC ACID TABLET (FP) PO SCH (10:10)
[2020-06-27] MEDS: LIDOCAINE 5% TOPICAL PATCH TP SCH (10:12)
[2020-06-27] MEDS: FLUoxetine HCL 10 MG CAPSULE PO SCH (10:22)
[2020-06-27] MEDS: METHOCARBAMOL 500 MG TABLET PO PRN (11:23)
[2020-06-27 11:40] LABS: CALCIUM 7.8 mg/dL (8.5-10.1)
[2020-06-27] MEDS: THIAMINE HCL 100 MG TABLET (FP) PO SCH (22:05)
[2020-06-27] MEDS: DIVALPROEX SODIUM 250 MG TABLET E.C. PO SCH (22:06)
[2020-06-27] MEDS: LIDOCAINE PATCH REMOVAL MC SCH (22:06)
[2020-06-27] MEDS: MELATONIN 5 MG TABLETS PO SCH (22:06)
[2020-06-28] MEDS ORDERED: chlordiazePOXIDE HCL 10 MG CAPSULE PO PRN
[2020-06-28] MEDS ORDERED: METHADONE HCL 40 MG DISPERSABLE TABLET ONE (04:44)
[2020-06-28] MEDS ORDERED: LEVOTHYROXINE NA 25 MCG TABLET (FP) ONE (04:44)
[2020-06-28] MEDS ORDERED: METHADONE HCL 10 MG TABLET ONE (04:44)
[2020-06-28] MEDS ORDERED: LEVOTHYROXINE NA 100 MCG TABLET (FP) ONE (04:45)
[2020-06-28] MEDS: METHADONE 40 MG, METHADONE 30 MG PO SCH (07:36)
[2020-06-28] MEDS: chlordiazePOXIDE HCL 10 MG CAPSULE PO SCH ×4 (07:36→22:33)
[2020-06-28] MEDS: ENALAPRIL MALEATE 10 MG TABLET PO SCH (10:23)
[2020-06-28] MEDS: amLODIPine BESYLATE 10 MG TABLET (FP) PO SCH (10:23)
[2020-06-28] MEDS: METHOCARBAMOL 500 MG TABLET PO PRN (10:23)
[2020-06-28] MEDS: PRENATAL VITAMINS W/ FOLIC ACID TABLET (FP) PO SCH (10:24)
[2020-06-28] MEDS: LIDOCAINE 5% TOPICAL PATCH TP SCH (10:24)
[2020-06-28] MEDS: IBUPROFEN 400 MG TABLET (FP) PO PRN (10:25)
[2020-06-28] MEDS: LEVOTHYROXINE 100 MCG, LEVOTHYROXINE 50 MCG PO SCH (10:26)
[2020-06-28] MEDS: NICOTINE 14 MG/24 HOURS TOPICAL PATCH TD SCH (10:29)
[2020-06-28] MEDS: CALCIUM 500MG/VIT-D 200 UNITS COMBO TABLET (FP) PO SCH ×2 (11:30→22:33)
[2020-06-28] MEDS: FLUoxetine HCL 10 MG CAPSULE PO SCH (14:57)
[2020-06-28] MEDS: MELATONIN 5 MG TABLETS PO SCH (22:33)
[2020-06-28] MEDS: DIVALPROEX SODIUM 250 MG TABLET E.C. PO SCH (22:33)
[2020-06-28] MEDS: METHYL SALICYLATE/MENTHOL OINT 30 GM TUBE TP SCH (22:33)
[2020-06-28] MEDS: THIAMINE HCL 100 MG TABLET (FP) PO SCH (22:33)
[2020-06-28] MEDS: LIDOCAINE PATCH REMOVAL MC SCH (22:34)
[2020-06-29] MEDS ORDERED: METHADONE HCL 40 MG DISPERSABLE TABLET ONE (04:58)
[2020-06-29] MEDS ORDERED: METHADONE HCL 10 MG TABLET ONE (04:58)
[2020-06-29] MEDS ORDERED: LEVOTHYROXINE NA 100 MCG TABLET (FP) ONE (04:59)
[2020-06-29] MEDS ORDERED: LEVOTHYROXINE NA 25 MCG TABLET (FP) ONE (04:59)
[2020-06-29] MEDS: chlordiazePOXIDE HCL 10 MG CAPSULE PO SCH ×2 (06:44→17:50)
[2020-06-29] MEDS: METHADONE 40 MG, METHADONE 30 MG PO SCH (06:45)
[2020-06-29] MEDS: LEVOTHYROXINE 100 MCG, LEVOTHYROXINE 50 MCG PO SCH (06:45)
[2020-06-29] MEDS: FERROUS SO4 325 MG TABLET (FP) PO SCH ×2 (07:45→17:50)
[2020-06-29] MEDS: METHYL SALICYLATE/MENTHOL OINT 30 GM TUBE TP SCH ×2 (10:34→22:49)
[2020-06-29] MEDS: PRENATAL VITAMINS W/ FOLIC ACID TABLET (FP) PO SCH (10:34)
[2020-06-29] MEDS: LIDOCAINE 5% TOPICAL PATCH TP SCH (10:34)
[2020-06-29] MEDS: NICOTINE 14 MG/24 HOURS TOPICAL PATCH TD SCH (10:35)
[2020-06-29] MEDS: amLODIPine BESYLATE 10 MG TABLET (FP) PO SCH (10:37)
[2020-06-29] MEDS: CALCIUM 500MG/VIT-D 200 UNITS COMBO TABLET (FP) PO SCH ×2 (10:37→22:49)
[2020-06-29] MEDS: ENALAPRIL MALEATE 10 MG TABLET PO SCH (10:37)
[2020-06-29] MEDS: FLUoxetine HCL 10 MG CAPSULE PO SCH (10:37)
[2020-06-29] MEDS: METHOCARBAMOL 500 MG TABLET PO PRN (13:56)
[2020-06-29] MEDS: MELATONIN 5 MG TABLETS PO SCH (22:49)
[2020-06-29] MEDS: THIAMINE HCL 100 MG TABLET (FP) PO SCH (22:49)
[2020-06-29] MEDS: DIVALPROEX SODIUM 250 MG TABLET E.C. PO SCH (22:49)
[2020-06-29] MEDS: LIDOCAINE PATCH REMOVAL MC SCH (22:49)
[2020-06-30] MEDS ORDERED: METHADONE HCL 10 MG TABLET ONE (04:37)
[2020-06-30] MEDS ORDERED: METHADONE HCL 40 MG DISPERSABLE TABLET ONE (04:37)
[2020-06-30] MEDS ORDERED: LEVOTHYROXINE NA 25 MCG TABLET (FP) ONE (04:38)
[2020-06-30] MEDS ORDERED: LEVOTHYROXINE NA 100 MCG TABLET (FP) ONE (04:38)
[2020-06-30] MEDS ORDERED: chlordiazePOXIDE HCL 10 MG CAPSULE PO ONE (05:00)
[2020-06-30] MEDS: METHADONE 40 MG, METHADONE 30 MG PO SCH (06:39)
[2020-06-30] MEDS: LEVOTHYROXINE 100 MCG, LEVOTHYROXINE 50 MCG PO SCH (06:40)
[2020-06-30] MEDS: FERROUS SO4 325 MG TABLET (FP) PO SCH ×2 (07:45→17:27)
[2020-06-30] MEDS: NICOTINE 14 MG/24 HOURS TOPICAL PATCH TD SCH (10:41)
[2020-06-30] MEDS: ENALAPRIL MALEATE 10 MG TABLET PO SCH (10:41)
[2020-06-30] MEDS: LIDOCAINE 5% TOPICAL PATCH TP SCH (10:41)
[2020-06-30] MEDS: FLUoxetine HCL 10 MG CAPSULE PO SCH (10:41)
[2020-06-30] MEDS: METHYL SALICYLATE/MENTHOL OINT 30 GM TUBE TP SCH ×2 (10:41→22:35)
[2020-06-30] MEDS: PRENATAL VITAMINS W/ FOLIC ACID TABLET (FP) PO SCH (10:41)
[2020-06-30] MEDS: CALCIUM 500MG/VIT-D 200 UNITS COMBO TABLET (FP) PO SCH ×2 (10:41→22:25)
[2020-06-30 10:49] LABS: BLOOD UREA NITROGEN 17.2 mg/dL (7-18); CALCIUM 8.5 mg/dL (8.5-10.1)
[2020-06-30 10:50] LABS: BASO % 0.9 % (0-2.0); EOS % 8.6 % (0-4.5); HEMATOCRIT 28.4 % (35.4-49); HEMOGLOBIN 9.5 GM/dL (11.7-16.9); LYMPH % 27.1 % (8-40); MCHC 33.6 g/dl (32.0-35.9); MEAN CELL VOLUME 83.2 fl (80-96); MEAN PLT VOLUME 7.4 fl (7.5-11.1); MONO % 7.2 % (3.8-10.2); NEUT % 56.2 % (42.8-82.8); PLATELET COUNT 364 K/MM3 (134-434); RBC 3.41 M/mm3 (4.00-5.60); WHITE BLOOD COUNT 5.5 K/mm3 (4.0-10.0)
[2020-06-30] MEDS: amLODIPine BESYLATE 10 MG TABLET (FP) PO SCH (10:52)
[2020-06-30] MEDS: THIAMINE HCL 100 MG TABLET (FP) PO SCH (22:25)
[2020-06-30] MEDS: DIVALPROEX SODIUM 250 MG TABLET E.C. PO SCH (22:25)
[2020-06-30] MEDS: LIDOCAINE PATCH REMOVAL MC SCH (22:27)
[2020-06-30] MEDS: MELATONIN 5 MG TABLETS PO SCH (22:27)
[2020-07-01] MEDS ORDERED: METHADONE HCL 10 MG TABLET ONE (04:18)
[2020-07-01] MEDS ORDERED: LEVOTHYROXINE NA 25 MCG TABLET (FP) ONE (04:19)
[2020-07-01] MEDS ORDERED: METHADONE HCL 40 MG DISPERSABLE TABLET ONE (04:19)
[2020-07-01] MEDS ORDERED: LEVOTHYROXINE NA 100 MCG TABLET (FP) ONE (04:19)
[2020-07-01] MEDS: LEVOTHYROXINE 100 MCG, LEVOTHYROXINE 50 MCG PO SCH (06:55)
[2020-07-01] MEDS: METHADONE 40 MG, METHADONE 30 MG PO SCH (06:55)
[2020-07-01] MEDS: FERROUS SO4 325 MG TABLET (FP) PO SCH ×2 (07:09→17:37)
[2020-07-01] MEDS: LIDOCAINE 5% TOPICAL PATCH TP SCH (10:04)
[2020-07-01] MEDS: METHYL SALICYLATE/MENTHOL OINT 30 GM TUBE TP SCH ×2 (10:04→22:29)
[2020-07-01] MEDS: FLUoxetine HCL 10 MG CAPSULE PO SCH (10:05)
[2020-07-01] MEDS: CALCIUM 500MG/VIT-D 200 UNITS COMBO TABLET (FP) PO SCH ×2 (10:05→21:51)
[2020-07-01] MEDS: ENALAPRIL MALEATE 10 MG TABLET PO SCH (10:05)
[2020-07-01] MEDS: amLODIPine BESYLATE 10 MG TABLET (FP) PO SCH (10:05)
[2020-07-01] MEDS: NICOTINE 14 MG/24 HOURS TOPICAL PATCH TD SCH (10:05)
[2020-07-01] MEDS: PRENATAL VITAMINS W/ FOLIC ACID TABLET (FP) PO SCH (10:06)
[2020-07-01] MEDS ORDERED: SODIUM POLYSTYRENE SULFONATE 15 GM/60 ML BOTTLE PO ONE (11:00)
[2020-07-01] MEDS: SODIUM POLYSTYRENE SULFONATE 15 GM/60 ML BOTTLE PO SCH ×2 (13:19→21:51)
[2020-07-01] MEDS: LIDOCAINE PATCH REMOVAL MC SCH (21:51)
[2020-07-01] MEDS: THIAMINE HCL 100 MG TABLET (FP) PO SCH (21:51)
[2020-07-01] MEDS: DIVALPROEX SODIUM 250 MG TABLET E.C. PO SCH (21:51)
[2020-07-01] MEDS: MELATONIN 5 MG TABLETS PO SCH (21:51)
[2020-07-01] MEDS: IBUPROFEN 400 MG TABLET (FP) PO PRN (22:31)
[2020-07-01] MEDS: METHOCARBAMOL 500 MG TABLET PO PRN (22:31)
[2020-07-02] MEDS ORDERED: METHADONE HCL 40 MG DISPERSABLE TABLET ONE (03:38)
[2020-07-02] MEDS ORDERED: METHADONE HCL 10 MG TABLET ONE (03:38)
[2020-07-02] MEDS ORDERED: LEVOTHYROXINE NA 100 MCG TABLET (FP) ONE (03:39)
[2020-07-02] MEDS ORDERED: LEVOTHYROXINE NA 25 MCG TABLET (FP) ONE (03:39)
[2020-07-02] MEDS: METHADONE 40 MG, METHADONE 30 MG PO SCH (05:53)
[2020-07-02] MEDS: LEVOTHYROXINE 100 MCG, LEVOTHYROXINE 50 MCG PO SCH (07:21)
[2020-07-02] MEDS: FERROUS SO4 325 MG TABLET (FP) PO SCH ×2 (07:22→17:00)
[2020-07-02 10:11] LABS: EOS % 10.2 % (0-4.5); HEMOGLOBIN 9.3 GM/dL (11.7-16.9); LYMPH % 37.5 % (8-40); MCH 27.8 pg (25.7-33.7); MCHC 33.3 g/dl (32.0-35.9); MEAN CELL VOLUME 83.4 fl (80-96); MEAN PLT VOLUME 7.5 fl (7.5-11.1); MONO % 8.4 % (3.8-10.2); NEUT % 42.9 % (42.8-82.8); PLATELET COUNT 324 K/MM3 (134-434); RBC 3.36 M/mm3 (4.00-5.60); RDW 16.5 % (11.9-15.9); WHITE BLOOD COUNT 4.6 K/mm3 (4.0-10.0)
[2020-07-02 10:19] LABS: BLOOD UREA NITROGEN 16.3 mg/dL (7-18); CALCIUM 7.9 mg/dL (8.5-10.1)
[2020-07-02] MEDS: PRENATAL VITAMINS W/ FOLIC ACID TABLET (FP) PO SCH (10:20)
[2020-07-02] MEDS: amLODIPine BESYLATE 10 MG TABLET (FP) PO SCH (10:20)
[2020-07-02] MEDS: ENALAPRIL MALEATE 10 MG TABLET PO SCH (10:20)
[2020-07-02] MEDS: CALCIUM 500MG/VIT-D 200 UNITS COMBO TABLET (FP) PO SCH (10:20)
[2020-07-02] MEDS: SODIUM POLYSTYRENE SULFONATE 15 GM/60 ML BOTTLE PO SCH (10:21)
[2020-07-02] MEDS: LIDOCAINE 5% TOPICAL PATCH TP SCH (10:21)
[2020-07-02] MEDS: FLUoxetine HCL 10 MG CAPSULE PO SCH (10:21)
[2020-07-02 10:22] LABS: CREATININE 1.1 mg/dL (0.55-1.3)
[2020-07-02] MEDS: NICOTINE 14 MG/24 HOURS TOPICAL PATCH TD SCH (10:22)
[2020-07-02] MEDS: METHYL SALICYLATE/MENTHOL OINT 30 GM TUBE TP SCH (10:22)
[2020-07-02] MEDS ORDERED: LEVOTHYROXINE 100 MCG, LEVOTHYROXINE 75 MCG PO ONE (11:43)
[2020-07-02] MEDS ORDERED: LEVOTHYROXINE NA 75 MCG TABLET (FP) PO ONE (11:43)
[2020-07-02] MEDS ORDERED: SODIUM POLYSTYRENE SULFONATE 15 GM/60 ML BOTTLE PO SCH (12:30)
[2020-07-02 15:22] VITALS: TEMP 98.1
[2020-07-02 16:07] VITALS: BP 124/85; PULSE 68
[2020-07-03] MEDS ORDERED: LEVOTHYROXINE NA 150 MCG TABLET PO SCH (07:00)
[2020-07-03] MEDS ORDERED: LEVOTHYROXINE 100 MCG, LEVOTHYROXINE 75 MCG PO SCH (07:00)
== END 2020-07-02 16:55 | disposition other institution (70) | DRG 773 ==
LOC: YASAS 18:57 → Y6N 06-26 09:13
PROVIDERS: ADMIT Allergy & Immunology; ATTEND Allergy & Immunology
PROC: HZ2ZZZZ Detoxification Services for Substance Abuse Treatment (ICD-10-PCS; principal; 2020-06-26)
DX: F10.230 Alcohol dependence with withdrawal, uncomplicated (principal); F11.20 Opioid dependence, uncomplicated; F14.20 Cocaine dependence, uncomplicated; F17.210 Nicotine dependence, cigarettes, uncomplicated; F12.20 Cannabis dependence, uncomplicated; F25.0 Schizoaffective disorder, bipolar type; F19.282 Other psychoactive substance dependence with psychoactive substance-induced sleep disorder; F19.24 Other psychoactive substance dependence with psychoactive substance-induced mood disorder; F41.0 Panic disorder [episodic paroxysmal anxiety]; F42.9 Obsessive-compulsive disorder, unspecified; D64.9 Anemia, unspecified; E87.5 Hyperkalemia; E83.51 Hypocalcemia; E89.0 Postprocedural hypothyroidism; I10 Essential (primary) hypertension; J45.909 Unspecified asthma, uncomplicated; M17.0 Bilateral primary osteoarthritis of knee; Z85.850 Personal history of malignant neoplasm of thyroid; Z99.89 Dependence on other enabling machines and devices; Z88.8 Allergy status to other drugs, medicaments and biological substances; S59.902A Unspecified injury of left elbow, initial encounter; W19.XXXA Unspecified fall, initial encounter; Y93.89 Activity, other specified; Y92.231 Patient bathroom in hospital as the place of occurrence of the external cause
CPT/HCPCS: 36415; 80048; 80053; 80164; 82310; 82652; 82728; 83540; 83550; 84132; 84439; 84443; 85025; 85027; 86780; 93005; 93010; C9803; J0735; U0003; U0005

== ENCOUNTER 2020-10-13 12:06 | Inpatient (IN) | payer OTHER ==
[2020-10-13 13:13] VITALS: BMI 26.6
[2020-10-13] MEDS ORDERED: BISMUTH SUBSALICYLATE 524 MG/30 ML PO PRN (13:22)
[2020-10-13] MEDS ORDERED: hydrOXYzine PAMOATE 25 MG CAPSULE (FP) PO PRN (13:22)
[2020-10-13] MEDS ORDERED: diazePAM 5 MG TABLET PO PRN (13:22)
[2020-10-13] MEDS ORDERED: ONDANSETRON *ODT* 4 MG TABLET SL PRN (13:22)
[2020-10-13] MEDS ORDERED: MAGNESIUM CITRATE 300 ML BOTTLE PO PRN (13:22)
[2020-10-13] MEDS ORDERED: IBUPROFEN 400 MG TABLET (FP) PO PRN (13:22)
[2020-10-13] MEDS ORDERED: METHOCARBAMOL 500 MG TABLET PO PRN (13:22)
[2020-10-13] MEDS ORDERED: MAGNESIUM HYDROX 2400MG/30ML ORAL SUSPENSION 30 ML CUP PO PRN (13:22)
[2020-10-13] MEDS ORDERED: MENTHOL/PHENOL 1 EACH UD MM PRN (13:22)
[2020-10-13] MEDS ORDERED: ACETAMINOPHEN 325 MG TABLET (FP) PO PRN ×2 (13:22)
[2020-10-13] MEDS ORDERED: MAG HYDROX/AL HYDROX/SIMETH 30 ML UNIT-DOSE CUP PO PRN (13:22)
[2020-10-13] MEDS ORDERED: NICOTINE 10 MG CARTRIDGE (INHALER) IH PRN (13:22)
[2020-10-13] MEDS ORDERED: clonazePAM 0.5 MG ODT TABLETS SL PRN (14:00)
[2020-10-13] MEDS ORDERED: methaDONE HCL 10 MG TABLET (FOR DETOX USE ONLY) PO ONE (14:00)
[2020-10-13 16:26] LABS: MEAN PLT VOLUME 6.8 fl (7.5-11.1); WHITE BLOOD COUNT 6.2 K/mm3 (4.0-10.0)
[2020-10-13 16:28] LABS: HEMATOCRIT 24.1 % (35.4-49); HEMOGLOBIN 8.1 GM/dL (11.7-16.9); MCH 27.5 pg (25.7-33.7); MCHC 33.7 g/dl (32.0-35.9); MEAN CELL VOLUME 81.5 fl (80-96); PLATELET COUNT 330 10^3/uL (134-434); RBC 2.96 M/mm3 (4.00-5.60); RDW 16.7 % (11.9-15.9)
[2020-10-13 16:39] LABS: ALBUMIN 3.2 g/dl (3.4-5.0); BLOOD UREA NITROGEN 21.3 mg/dL (7-18); CALCIUM 7.3 mg/dL (8.5-10.1)
[2020-10-13 16:42] LABS: CREATININE 0.9 mg/dL (0.55-1.3)
[2020-10-13 16:43] LABS: BILIRUBIN,TOTAL 0.6 mg/dL (0.2-1); TOT PROT 6.5 g/dl (6.4-8.2)
[2020-10-13] MEDS: diazePAM 5 MG TABLET PO SCH ×2 (17:59→22:40)
[2020-10-13] MEDS ORDERED: MELATONIN 5 MG TABLETS PO SCH (22:00)
[2020-10-13] MEDS ORDERED: THIAMINE HCL 100 MG TABLET (FP) PO SCH (22:00)
[2020-10-14] MEDS: diazePAM 5 MG TABLET PO SCH ×2 (05:36→10:28)
[2020-10-14] MEDS ORDERED: ALBUTEROL SO4 HFA INHALER IH PRN (08:03)
[2020-10-14] MEDS ORDERED: methaDONE HCL 10 MG TABLET (FOR DETOX USE ONLY) ONE (09:14)
[2020-10-14] MEDS ORDERED: ENALAPRIL MALEATE 10 MG TABLET PO SCH (10:00)
[2020-10-14] MEDS ORDERED: amLODIPine BESYLATE 10 MG TABLET (FP) PO SCH (10:00)
[2020-10-14] MEDS ORDERED: PRENATAL VITAMINS W/ FOLIC ACID TABLET (FP) PO SCH (10:00)
[2020-10-14 13:00] VITALS: BP 143/92; PULSE 90; TEMP 97.1
[2020-10-14] MEDS ORDERED: FERROUS SO4 325 MG TABLET (FP) PO SCH (17:30)
[2020-10-14] MEDS ORDERED: DIVALPROEX NA *ER* EXTEND REL 250 MG TABLET.SA PO ONE (22:00)
[2020-10-15] MEDS ORDERED: diazePAM 5 MG TABLET PO SCH (06:00)
[2020-10-15] MEDS ORDERED: LEVOTHYROXINE NA 25 MCG TABLET (FP) PO SCH (07:00)
[2020-10-15] MEDS ORDERED: LEVOTHYROXINE 100 MCG, LEVOTHYROXINE 50 MCG PO SCH (07:00)
[2020-10-15] MEDS ORDERED: FLUoxetine HCL 10 MG CAPSULE PO SCH (10:00)
[2020-10-15] MEDS ORDERED: methaDONE HCL 10 MG TABLET (FOR DETOX USE ONLY) PO ONE (10:00)
[2020-10-16] MEDS ORDERED: diazePAM 5 MG TABLET PO SCH (06:00)
[2020-10-17] MEDS ORDERED: diazePAM 5 MG TABLET PO ONE (06:00)
[2020-10-17] MEDS ORDERED: methaDONE HCL 10 MG TABLET (FOR DETOX USE ONLY) PO ONE (10:00)
== END 2020-10-14 16:30 | disposition left against medical advice (07) | DRG 770 ==
LOC: YASAS 12:06 → Y3N 13:21
PROVIDERS: ADMIT Allergy & Immunology; ATTEND Allergy & Immunology
PROC: HZ2ZZZZ Detoxification Services for Substance Abuse Treatment (ICD-10-PCS; principal; 2020-10-13)
DX: F10.230 Alcohol dependence with withdrawal, uncomplicated (principal); F11.23 Opioid dependence with withdrawal; F14.20 Cocaine dependence, uncomplicated; F12.20 Cannabis dependence, uncomplicated; F17.210 Nicotine dependence, cigarettes, uncomplicated; F25.0 Schizoaffective disorder, bipolar type; F19.282 Other psychoactive substance dependence with psychoactive substance-induced sleep disorder; F19.24 Other psychoactive substance dependence with psychoactive substance-induced mood disorder; F42.9 Obsessive-compulsive disorder, unspecified; F41.0 Panic disorder [episodic paroxysmal anxiety]; E89.0 Postprocedural hypothyroidism; I10 Essential (primary) hypertension; J45.20 Mild intermittent asthma, uncomplicated; K21.9 Gastro-esophageal reflux disease without esophagitis; M17.0 Bilateral primary osteoarthritis of knee; Z85.850 Personal history of malignant neoplasm of thyroid
CPT/HCPCS: 36415; 80053; 85027; C9803; U0003; U0005

== ENCOUNTER 2020-12-11 18:21 | Inpatient (IN) | payer OTHER ==
[2020-12-11 19:13] VITALS: BMI 25.1
[2020-12-11] MEDS ORDERED: MAG HYDROX/AL HYDROX/SIMETH 30 ML UNIT-DOSE CUP PO PRN (21:22)
[2020-12-11] MEDS ORDERED: ACETAMINOPHEN 325 MG TABLET (FP) PO PRN ×2 (21:22)
[2020-12-11] MEDS ORDERED: MAGNESIUM CITRATE 300 ML BOTTLE PO PRN (21:22)
[2020-12-11] MEDS ORDERED: MENTHOL/PHENOL 1 EACH UD MM PRN (21:22)
[2020-12-11] MEDS ORDERED: BISMUTH SUBSALICYLATE 524 MG/30 ML PO PRN (21:22)
[2020-12-11] MEDS ORDERED: MAGNESIUM HYDROX 2400MG/30ML ORAL SUSPENSION 30 ML CUP PO PRN (21:22)
[2020-12-11] MEDS ORDERED: METHOCARBAMOL 500 MG TABLET PO PRN (21:22)
[2020-12-11] MEDS ORDERED: ONDANSETRON *ODT* 4 MG TABLET SL PRN (21:22)
[2020-12-12] MEDS ORDERED: IBUPROFEN 400 MG TABLET (FP) PO ONE (03:19)
[2020-12-12] MEDS: IBUPROFEN 400 MG TABLET (FP) PO PRN (03:25)
[2020-12-12] MEDS: MELATONIN 5 MG TABLETS PO SCH ×2 (03:26→22:42)
[2020-12-12] MEDS: THIAMINE HCL 100 MG TABLET (FP) PO SCH ×2 (03:26→22:42)
[2020-12-12] MEDS: diazePAM 5 MG TABLET PO SCH ×4 (05:42→22:43)
[2020-12-12] MEDS ORDERED: methaDONE HCL 10 MG TABLET (FOR DETOX USE ONLY) ONE (09:38)
[2020-12-12] MEDS: methaDONE HCL 10 MG TABLET PO SCH (09:46)
[2020-12-12] MEDS ORDERED: ALBUTEROL SO4 HFA INHALER IH PRN (10:09)
[2020-12-12] MEDS: PRENATAL VITAMINS W/ FOLIC ACID TABLET (FP) PO SCH (10:48)
[2020-12-12] MEDS: BACITRACIN 0.9 GM PACKET TP SCH (10:48)
[2020-12-12 11:26] LABS: CHLORIDE 108 mmol/L (98-107); SODIUM 142 mmol/L (136-145)
[2020-12-12 11:27] LABS: HEMATOCRIT 25.6 % (35.4-49); HEMOGLOBIN 8.9 GM/dL (11.7-16.9); MCH 27.4 pg (25.7-33.7); MCHC 34.9 g/dl (32.0-35.9); MEAN CELL VOLUME 78.5 fl (80-96); MEAN PLT VOLUME 6.6 fl (7.5-11.1); PLATELET COUNT 376 10^3/uL (134-434); RBC 3.26 M/mm3 (4.00-5.60); RDW 16.1 % (11.9-15.9); WHITE BLOOD COUNT 4.9 K/mm3 (4.0-10.0)
[2020-12-12 11:42] LABS: ANION GAP 4 MMOL/L (8-16); BLOOD UREA NITROGEN 21.9 mg/dL (7-18); CO2 30 mmol/L (21-32); GLUCOSE,RANDOM 99 mg/dL (74-106)
[2020-12-12 11:43] LABS: ALBUMIN 2.8 g/dl (3.4-5.0)
[2020-12-12 11:45] LABS: BILIRUBIN,TOTAL 0.2 mg/dL (0.2-1); CREATININE 1.1 mg/dL (0.55-1.3)
[2020-12-12 11:46] LABS: ALK PHOS 72 U/L (45-117); SGOT/AST 19 U/L (15-37); SGPT/ALT 19 U/L (13-61); TOT PROT 6.5 g/dl (6.4-8.2)
[2020-12-12 11:52] LABS: CALCIUM 6.8 mg/dL (8.5-10.1)
[2020-12-12] MEDS ORDERED: cloNIDine HCL 0.1 MG TABLET PO PRN (12:21)
[2020-12-12] MEDS: FERROUS SO4 325 MG TABLET (FP) PO SCH (18:25)
[2020-12-12] MEDS: DIVALPROEX SODIUM 500 MG TABLET E.C. PO SCH (22:42)
[2020-12-13] MEDS ORDERED: LEVOTHYROXINE NA 25 MCG TABLET (FP) ONE (05:36)
[2020-12-13] MEDS ORDERED: LEVOTHYROXINE NA 100 MCG TABLET (FP) ONE (05:37)
[2020-12-13] MEDS: methaDONE HCL 10 MG TABLET PO SCH (06:14)
[2020-12-13] MEDS: diazePAM 5 MG TABLET PO SCH ×3 (06:15→22:27)
[2020-12-13] MEDS: LEVOTHYROXINE 100 MCG, LEVOTHYROXINE 50 MCG PO SCH (06:16)
[2020-12-13] MEDS ORDERED: LEVOTHYROXINE NA 25 MCG TABLET (FP) PO SCH (07:00)
[2020-12-13] MEDS: FERROUS SO4 325 MG TABLET (FP) PO SCH ×3 (08:17→17:18)
[2020-12-13] MEDS: FLUoxetine HCL 20 MG CAPSULE PO SCH (10:36)
[2020-12-13] MEDS: PRENATAL VITAMINS W/ FOLIC ACID TABLET (FP) PO SCH (10:36)
[2020-12-13] MEDS: DIVALPROEX SODIUM 500 MG TABLET E.C. PO SCH ×2 (10:36→22:26)
[2020-12-13] MEDS: BACITRACIN 0.9 GM PACKET TP SCH (10:36)
[2020-12-13] MEDS: ENALAPRIL MALEATE 10 MG TABLET PO SCH (10:36)
[2020-12-13] MEDS: CHOLECALCIFEROL (VIT D3) 1,000 UNIT (25 MCG) TABLET PO SCH (10:37)
[2020-12-13] MEDS: amLODIPine BESYLATE 10 MG TABLET (FP) PO SCH (10:37)
[2020-12-13] MEDS: diazePAM 5 MG TABLET PO PRN (10:38)
[2020-12-13] MEDS: CALCIUM 500MG/VIT-D 200 UNITS COMBO TABLET (FP) PO SCH ×2 (10:38→22:26)
[2020-12-13 12:05] LABS: CALCIUM 7.1 mg/dL (8.5-10.1)
[2020-12-13 12:06] LABS: BLOOD UREA NITROGEN 20.2 mg/dL (7-18)
[2020-12-13 12:10] LABS: BILIRUBIN,TOTAL 0.2 mg/dL (0.2-1); TOT PROT 6.9 g/dl (6.4-8.2)
[2020-12-13] MEDS: IBUPROFEN 400 MG TABLET (FP) PO PRN (18:30)
[2020-12-13] MEDS: MELATONIN 5 MG TABLETS PO SCH (22:27)
[2020-12-13] MEDS: THIAMINE HCL 100 MG TABLET (FP) PO SCH (22:27)
[2020-12-14] MEDS ORDERED: LEVOTHYROXINE NA 25 MCG TABLET (FP) ONE (04:06)
[2020-12-14] MEDS ORDERED: LEVOTHYROXINE NA 100 MCG TABLET (FP) ONE (04:07)
[2020-12-14] MEDS: methaDONE HCL 10 MG TABLET PO SCH (06:19)
[2020-12-14] MEDS: LEVOTHYROXINE 100 MCG, LEVOTHYROXINE 50 MCG PO SCH (06:19)
[2020-12-14] MEDS: diazePAM 5 MG TABLET PO SCH ×2 (06:20→17:29)
[2020-12-14] MEDS: FERROUS SO4 325 MG TABLET (FP) PO SCH ×3 (09:32→17:29)
[2020-12-14] MEDS: BACITRACIN 0.9 GM PACKET TP SCH (09:32)
[2020-12-14] MEDS: DIVALPROEX SODIUM 500 MG TABLET E.C. PO SCH ×2 (09:32→22:25)
[2020-12-14] MEDS: amLODIPine BESYLATE 10 MG TABLET (FP) PO SCH (09:32)
[2020-12-14] MEDS: ENALAPRIL MALEATE 10 MG TABLET PO SCH (09:33)
[2020-12-14] MEDS: CALCIUM 500MG/VIT-D 200 UNITS COMBO TABLET (FP) PO SCH ×2 (09:33→22:25)
[2020-12-14] MEDS: CHOLECALCIFEROL (VIT D3) 1,000 UNIT (25 MCG) TABLET PO SCH (09:33)
[2020-12-14] MEDS: PRENATAL VITAMINS W/ FOLIC ACID TABLET (FP) PO SCH (09:33)
[2020-12-14] MEDS: FLUoxetine HCL 20 MG CAPSULE PO SCH (09:33)
[2020-12-14] MEDS: diazePAM 5 MG TABLET PO PRN (09:38)
[2020-12-14 10:00] LABS: EOS % 4.9 % (0-4.5); HEMATOCRIT 27.3 % (35.4-49); LYMPH % 37.7 % (8-40); MCH 26.9 pg (25.7-33.7); MEAN CELL VOLUME 81.7 fl (80-96); MEAN PLT VOLUME 6.9 fl (7.5-11.1); MONO % 7.4 % (3.8-10.2); PLATELET COUNT 378 10^3/uL (134-434); RBC 3.34 M/mm3 (4.00-5.60); RDW 16.4 % (11.9-15.9); WHITE BLOOD COUNT 4.9 K/mm3 (4.0-10.0)
[2020-12-14] MEDS: LISINOPRIL 5 MG TABLET PO SCH (12:50)
[2020-12-14] MEDS: THIAMINE HCL 100 MG TABLET (FP) PO SCH (22:25)
[2020-12-14] MEDS: MELATONIN 5 MG TABLETS PO SCH (22:25)
[2020-12-14] MEDS: IBUPROFEN 400 MG TABLET (FP) PO PRN (22:28)
[2020-12-15] MEDS ORDERED: LEVOTHYROXINE NA 100 MCG TABLET (FP) ONE (04:10)
[2020-12-15] MEDS ORDERED: LEVOTHYROXINE NA 25 MCG TABLET (FP) ONE (04:10)
[2020-12-15] MEDS: methaDONE HCL 10 MG TABLET PO SCH (05:53)
[2020-12-15] MEDS: LEVOTHYROXINE 100 MCG, LEVOTHYROXINE 50 MCG PO SCH (06:00)
[2020-12-15] MEDS ORDERED: diazePAM 5 MG TABLET PO ONE (06:00)
[2020-12-15] MEDS: CALCIUM 500MG/VIT-D 200 UNITS COMBO TABLET (FP) PO SCH (09:34)
[2020-12-15] MEDS: FLUoxetine HCL 20 MG CAPSULE PO SCH (09:34)
[2020-12-15] MEDS: amLODIPine BESYLATE 10 MG TABLET (FP) PO SCH (09:34)
[2020-12-15] MEDS: DIVALPROEX SODIUM 500 MG TABLET E.C. PO SCH (09:34)
[2020-12-15] MEDS: PRENATAL VITAMINS W/ FOLIC ACID TABLET (FP) PO SCH (09:34)
[2020-12-15] MEDS: BACITRACIN 0.9 GM PACKET TP SCH (09:35)
[2020-12-15] MEDS: FERROUS SO4 325 MG TABLET (FP) PO SCH ×2 (09:38→12:15)
[2020-12-15 09:48] VITALS: BP 143/83; PULSE 78; TEMP 97.7
[2020-12-15] MEDS: LISINOPRIL 5 MG TABLET PO SCH (10:50)
[2020-12-15] MEDS: CHOLECALCIFEROL (VIT D3) 1,000 UNIT (25 MCG) TABLET PO SCH (10:52)
[2020-12-15] MEDS: IBUPROFEN 400 MG TABLET (FP) PO PRN (10:56)
[2020-12-15] MEDS: ENALAPRIL MALEATE 10 MG TABLET PO SCH (12:11)
== END 2020-12-15 12:23 | disposition home or self-care (01) | DRG 773 ==
LOC: YASAS 18:21 → Y6N 12-12 09:25
PROVIDERS: ADMIT Allergy & Immunology; ATTEND Allergy & Immunology
PROC: HZ2ZZZZ Detoxification Services for Substance Abuse Treatment (ICD-10-PCS; principal; 2020-12-12)
DX: F10.230 Alcohol dependence with withdrawal, uncomplicated (principal); F11.20 Opioid dependence, uncomplicated; F14.20 Cocaine dependence, uncomplicated; F12.20 Cannabis dependence, uncomplicated; F17.210 Nicotine dependence, cigarettes, uncomplicated; F19.282 Other psychoactive substance dependence with psychoactive substance-induced sleep disorder; F19.24 Other psychoactive substance dependence with psychoactive substance-induced mood disorder; F31.81 Bipolar II disorder; F25.0 Schizoaffective disorder, bipolar type; F41.8 Other specified anxiety disorders; F42.9 Obsessive-compulsive disorder, unspecified; D50.9 Iron deficiency anemia, unspecified; E83.51 Hypocalcemia; J45.20 Mild intermittent asthma, uncomplicated; E89.0 Postprocedural hypothyroidism; Z56.0 Unemployment, unspecified; Z59.01 Sheltered homelessness
CPT/HCPCS: 36415; 80053; 80164; 82310; 85025; 85027; 86780; 93005; 93010; C9803; J0735; Q0162; U0003; U0005

== ENCOUNTER 2021-03-23 15:58 | Inpatient (IN) | payer OTHER ==
[2021-03-23 19:22] VITALS: BMI 25.0
[2021-03-23] MEDS ORDERED: P-EPHED 60MG/TRIPROLIDI 2.5MG TABLET PO PRN (21:58)
[2021-03-23] MEDS ORDERED: MENTHOL/PHENOL 1 EACH UD MM PRN (21:58)
[2021-03-23] MEDS ORDERED: IBUPROFEN 400 MG TABLET (FP) PO PRN (21:58)
[2021-03-23] MEDS ORDERED: MAGNESIUM CITRATE 300 ML BOTTLE PO PRN (21:58)
[2021-03-23] MEDS ORDERED: BISMUTH SUBSALICYLATE 524 MG/30 ML PO PRN (21:58)
[2021-03-23] MEDS ORDERED: METHOCARBAMOL 500 MG TABLET PO PRN (21:58)
[2021-03-23] MEDS ORDERED: MAG HYDROX/AL HYDROX/SIMETH 30 ML UNIT-DOSE CUP PO PRN (21:58)
[2021-03-23] MEDS ORDERED: guaiFENesin 200 MG/10 ML 10 ML UNIT-DOSE CUPS PO PRN (21:58)
[2021-03-23] MEDS ORDERED: ACETAMINOPHEN 325 MG TABLET (FP) PO PRN ×2 (21:58)
[2021-03-23] MEDS ORDERED: DICYCLOMINE HCL 10 MG CAPSULE PO PRN (21:58)
[2021-03-23] MEDS ORDERED: diazePAM 5 MG TABLET PO PRN (21:58)
[2021-03-23] MEDS ORDERED: ONDANSETRON *ODT* 4 MG TABLET SL PRN (21:58)
[2021-03-23] MEDS ORDERED: NALOXONE HCL 0.4 MG/ML VIAL IM PRN (21:58)
[2021-03-23] MEDS ORDERED: NALOXONE (NARCAN) HCL 4 MG/0.1 ML SPRAY NS PRN (21:58)
[2021-03-23] MEDS ORDERED: MAGNESIUM HYDROX 2400MG/30ML ORAL SUSPENSION 30 ML CUP PO PRN (21:58)
[2021-03-23] MEDS ORDERED: NICOTINE POLACRILEX 2 MG GUM BUC PRN (21:58)
[2021-03-24] MEDS: MELATONIN 5 MG TABLETS PO SCH ×2 (02:22→22:08)
[2021-03-24] MEDS: diazePAM 5 MG TABLET PO SCH ×5 (02:22→22:10)
[2021-03-24] MEDS: THIAMINE HCL 100 MG TABLET (FP) PO SCH ×2 (02:22→22:08)
[2021-03-24] MEDS ORDERED: methaDONE HCL 10 MG TABLET ONE (09:02)
[2021-03-24] MEDS ORDERED: methaDONE HCL 40 MG DISPERSABLE TABLET ONE (09:02)
[2021-03-24] MEDS ORDERED: methaDONE HCL 10 MG TABLET PO ONE (10:00)
[2021-03-24] MEDS ORDERED: methaDONE 40 MG, methaDONE 20 MG PO ONE (10:00)
[2021-03-24] MEDS ORDERED: ALBUTEROL SO4 HFA INHALER IH PRN (10:15)
[2021-03-24] MEDS: amLODIPine BESYLATE 10 MG TABLET (FP) PO SCH (10:29)
[2021-03-24] MEDS: PRENATAL VITAMINS W/ FOLIC ACID TABLET (FP) PO SCH (10:29)
[2021-03-24] MEDS: LEVOTHYROXINE NA 100 MCG TABLET (FP) PO SCH (10:29)
[2021-03-24] MEDS: NICOTINE 14 MG/24 HOURS TOPICAL PATCH TD SCH (10:31)
[2021-03-24 11:59] LABS: HEMATOCRIT 27.1 % (35.4-49); MCH 25.8 pg (25.7-33.7); MEAN PLT VOLUME 6.8 fl (7.5-11.1); PLATELET COUNT 372 10^3/uL (134-434); RBC 3.48 M/mm3 (4.00-5.60); RDW 16.7 % (11.9-15.9); WHITE BLOOD COUNT 4.7 K/mm3 (4.0-10.0)
[2021-03-24 13:22] LABS: CALCIUM 7.3 mg/dL (8.5-10.1)
[2021-03-24 13:25] LABS: CREATININE 1.1 mg/dL (0.55-1.3)
[2021-03-24 13:26] LABS: BILIRUBIN,TOTAL 0.4 mg/dL (0.2-1); TOT PROT 6.6 g/dl (6.4-8.2)
[2021-03-24] MEDS: FLUoxetine HCL 20 MG CAPSULE PO SCH (14:36)
[2021-03-24] MEDS: DIVALPROEX SODIUM 250 MG TABLET E.C. PO SCH ×2 (14:37→22:08)
[2021-03-24] MEDS: FERROUS SO4 325 MG TABLET (FP) PO SCH ×2 (14:37→17:56)
[2021-03-25] MEDS ORDERED: methaDONE HCL 10 MG TABLET ONE (04:41)
[2021-03-25] MEDS ORDERED: methaDONE HCL 40 MG DISPERSABLE TABLET ONE (04:41)
[2021-03-25] MEDS ORDERED: methaDONE HCL 10 MG TABLET PO SCH (06:00)
[2021-03-25] MEDS: LEVOTHYROXINE NA 100 MCG TABLET (FP) PO SCH (06:36)
[2021-03-25] MEDS: diazePAM 5 MG TABLET PO SCH ×3 (06:36→22:32)
[2021-03-25] MEDS: methaDONE 40 MG, methaDONE 20 MG PO SCH (06:36)
[2021-03-25] MEDS: FERROUS SO4 325 MG TABLET (FP) PO SCH ×3 (09:00→18:02)
[2021-03-25] MEDS: PRENATAL VITAMINS W/ FOLIC ACID TABLET (FP) PO SCH (10:05)
[2021-03-25 10:16] LABS: HEMATOCRIT 27.9 % (35.4-49); HEMOGLOBIN 8.9 GM/dL (11.7-16.9); MCH 25.3 pg (25.7-33.7); MCHC 31.9 g/dl (32.0-35.9); MEAN CELL VOLUME 79.2 fl (80-96); PLATELET COUNT 382 10^3/uL (134-434); RBC 3.52 M/mm3 (4.00-5.60); RDW 16.9 % (11.9-15.9); RETICULOCYTES 1.09 % (0.5-1.5); WHITE BLOOD COUNT 5.5 K/mm3 (4.0-10.0)
[2021-03-25] MEDS: FLUoxetine HCL 20 MG CAPSULE PO SCH (10:45)
[2021-03-25] MEDS: amLODIPine BESYLATE 10 MG TABLET (FP) PO SCH (10:45)
[2021-03-25] MEDS: DIVALPROEX SODIUM 250 MG TABLET E.C. PO SCH ×2 (10:45→22:31)
[2021-03-25] MEDS: NICOTINE 14 MG/24 HOURS TOPICAL PATCH TD SCH (10:46)
[2021-03-25] MEDS: SENNOSIDES 8.6MG TABLET (FP) PO SCH ×2 (11:14→22:31)
[2021-03-25] MEDS: DOCUSATE SODIUM 100 MG CAPSULE (FP) PO SCH ×2 (13:43→22:31)
[2021-03-25] MEDS: MELATONIN 5 MG TABLETS PO SCH (22:31)
[2021-03-25] MEDS: THIAMINE HCL 100 MG TABLET (FP) PO SCH (22:33)
[2021-03-26] MEDS ORDERED: methaDONE HCL 10 MG TABLET ONE (04:59)
[2021-03-26] MEDS ORDERED: methaDONE HCL 40 MG DISPERSABLE TABLET ONE (04:59)
[2021-03-26] MEDS: DOCUSATE SODIUM 100 MG CAPSULE (FP) PO SCH ×3 (05:46→22:27)
[2021-03-26] MEDS: methaDONE 40 MG, methaDONE 20 MG PO SCH (05:46)
[2021-03-26] MEDS: diazePAM 5 MG TABLET PO SCH ×2 (05:46→17:38)
[2021-03-26] MEDS: LEVOTHYROXINE NA 100 MCG TABLET (FP) PO SCH (06:36)
[2021-03-26] MEDS: FERROUS SO4 325 MG TABLET (FP) PO SCH ×3 (07:06→17:38)
[2021-03-26] MEDS: PRENATAL VITAMINS W/ FOLIC ACID TABLET (FP) PO SCH (10:23)
[2021-03-26] MEDS: DIVALPROEX SODIUM 250 MG TABLET E.C. PO SCH ×2 (10:23→22:28)
[2021-03-26] MEDS: FLUoxetine HCL 20 MG CAPSULE PO SCH (10:24)
[2021-03-26] MEDS: NICOTINE 14 MG/24 HOURS TOPICAL PATCH TD SCH (10:24)
[2021-03-26] MEDS: amLODIPine BESYLATE 10 MG TABLET (FP) PO SCH (10:24)
[2021-03-26] MEDS: SENNOSIDES 8.6MG TABLET (FP) PO SCH ×2 (10:25→22:27)
[2021-03-26] MEDS: MELATONIN 5 MG TABLETS PO SCH (22:27)
[2021-03-26] MEDS: THIAMINE HCL 100 MG TABLET (FP) PO SCH (22:28)
[2021-03-27] MEDS ORDERED: methaDONE HCL 10 MG TABLET ONE (04:05)
[2021-03-27] MEDS ORDERED: methaDONE HCL 40 MG DISPERSABLE TABLET ONE (04:06)
[2021-03-27] MEDS: DOCUSATE SODIUM 100 MG CAPSULE (FP) PO SCH (05:28)
[2021-03-27] MEDS: methaDONE 40 MG, methaDONE 20 MG PO SCH (05:28)
[2021-03-27] MEDS ORDERED: diazePAM 5 MG TABLET PO ONE (06:00)
[2021-03-27] MEDS: LEVOTHYROXINE NA 100 MCG TABLET (FP) PO SCH (07:03)
[2021-03-27] MEDS: FERROUS SO4 325 MG TABLET (FP) PO SCH (07:03)
[2021-03-27 09:08] VITALS: BP 129/73; PULSE 90; TEMP 97.7
== END 2021-03-27 09:44 | disposition home or self-care (01) | DRG 773 ==
LOC: YASAS 15:58 → Y6N 03-24 02:03
PROVIDERS: ADMIT Allergy & Immunology; ATTEND Allergy & Immunology
PROC: HZ2ZZZZ Detoxification Services for Substance Abuse Treatment (ICD-10-PCS; principal; 2021-03-24)
DX: F10.230 Alcohol dependence with withdrawal, uncomplicated (principal); F11.20 Opioid dependence, uncomplicated; F13.20 Sedative, hypnotic or anxiolytic dependence, uncomplicated; F14.20 Cocaine dependence, uncomplicated; F12.20 Cannabis dependence, uncomplicated; F17.210 Nicotine dependence, cigarettes, uncomplicated; F19.282 Other psychoactive substance dependence with psychoactive substance-induced sleep disorder; F19.280 Other psychoactive substance dependence with psychoactive substance-induced anxiety disorder; F19.24 Other psychoactive substance dependence with psychoactive substance-induced mood disorder; F25.0 Schizoaffective disorder, bipolar type; E89.0 Postprocedural hypothyroidism; I10 Essential (primary) hypertension; J45.20 Mild intermittent asthma, uncomplicated; K29.00 Acute gastritis without bleeding; Z62.810 Personal history of physical and sexual abuse in childhood; Z56.0 Unemployment, unspecified; Z88.8 Allergy status to other drugs, medicaments and biological substances; Z59.01 Sheltered homelessness
CPT/HCPCS: 36415; 80053; 80164; 82607; 82746; 83540; 83550; 85027; 85045; 86780; C9803; U0003; U0005

== ENCOUNTER 2021-05-18 11:36 | Inpatient (IN) | payer OTHER ==
[2021-05-18] MEDS ORDERED: DICYCLOMINE HCL 10 MG CAPSULE PO PRN (12:33)
[2021-05-18] MEDS ORDERED: ONDANSETRON *ODT* 4 MG TABLET SL PRN (12:33)
[2021-05-18] MEDS ORDERED: NALOXONE HCL (KLOXXADO) 8 MG SPRAY NS PRN (12:33)
[2021-05-18] MEDS ORDERED: MAGNESIUM HYDROX 2400MG/30ML ORAL SUSPENSION 30 ML CUP PO PRN (12:33)
[2021-05-18] MEDS ORDERED: LOPERAMIDE HCL 2 MG CAPSULE PO PRN (12:33)
[2021-05-18] MEDS ORDERED: NICOTINE 10 MG CARTRIDGE (INHALER) IH PRN (12:33)
[2021-05-18] MEDS ORDERED: MAGNESIUM CITRATE 300 ML BOTTLE PO PRN (12:33)
[2021-05-18] MEDS ORDERED: ACETAMINOPHEN 325 MG TABLET (FP) PO PRN (12:33)
[2021-05-18] MEDS ORDERED: BISMUTH SUBSALICYLATE 524 MG/30 ML PO PRN (12:33)
[2021-05-18] MEDS ORDERED: MAG HYDROX/AL HYDROX/SIMETH 30 ML UNIT-DOSE CUP PO PRN (12:33)
[2021-05-18] MEDS ORDERED: MENTHOL/PHENOL 1 EACH UD MM PRN (12:33)
[2021-05-18] MEDS ORDERED: chlordiazePOXIDE HCL 25 MG CAPSULE PO PRN (12:33)
[2021-05-18] MEDS ORDERED: ALBUTEROL SO4 HFA INHALER IH PRN (12:42)
[2021-05-18] MEDS ORDERED: amLODIPine BESYLATE 5 MG TABLET (FP) ONE (13:35)
[2021-05-18] MEDS: amLODIPine BESYLATE 10 MG TABLET (FP) PO SCH (13:41)
[2021-05-18] MEDS: FERROUS SO4 325 MG TABLET (FP) PO SCH ×2 (14:18→22:35)
[2021-05-18] MEDS: LEVOTHYROXINE NA 100 MCG TABLET (FP) PO SCH (14:18)
[2021-05-18] MEDS: methaDONE HCL 10 MG TABLET PO SCH (14:18)
[2021-05-18] MEDS: PRENATAL VITAMINS W/ FOLIC ACID TABLET (FP) PO SCH (14:19)
[2021-05-18] MEDS: hydrOXYzine PAMOATE 25 MG CAPSULE (FP) PO SCH ×2 (14:19→19:02)
[2021-05-18] MEDS: ENALAPRIL MALEATE 10 MG TABLET PO SCH ×2 (14:51→22:44)
[2021-05-18] MEDS: chlordiazePOXIDE HCL 25 MG CAPSULE PO SCH ×2 (17:58→22:35)
[2021-05-18 18:28] VITALS: BMI 53.4
[2021-05-18] MEDS: MELATONIN 5 MG TABLETS PO SCH (22:34)
[2021-05-18] MEDS: THIAMINE HCL 100 MG TABLET (FP) PO SCH (22:34)
[2021-05-19] MEDS: FERROUS SO4 325 MG TABLET (FP) PO SCH ×3 (06:58→22:31)
[2021-05-19] MEDS: methaDONE HCL 10 MG TABLET PO SCH (06:58)
[2021-05-19] MEDS: chlordiazePOXIDE HCL 25 MG CAPSULE PO SCH ×4 (06:58→22:32)
[2021-05-19 11:07] LABS: ALBUMIN 3.7 g/dl (3.4-5.0); BLOOD UREA NITROGEN 29.3 mg/dL (7-18); CALCIUM 8.2 mg/dL (8.5-10.1)
[2021-05-19 11:09] LABS: HEMATOCRIT 30.7 % (35.4-49); MCH 26.1 pg (25.7-33.7); MCHC 32.6 g/dl (32.0-35.9); MEAN CELL VOLUME 80.2 fl (80-96); MEAN PLT VOLUME 7.7 fl (7.5-11.1); PLATELET COUNT 298 10^3/uL (134-434); RBC 3.83 M/mm3 (4.00-5.60); RDW 17.5 % (11.9-15.9); WHITE BLOOD COUNT 2.4 K/mm3 (4.0-10.0)
[2021-05-19 11:10] LABS: CREATININE 1.9 mg/dL (0.55-1.3)
[2021-05-19 11:12] LABS: BILIRUBIN,TOTAL 0.4 mg/dL (0.2-1); TOT PROT 7.5 g/dl (6.4-8.2)
[2021-05-19] MEDS: LEVOTHYROXINE NA 100 MCG TABLET (FP) PO SCH (12:31)
[2021-05-19] MEDS: PRENATAL VITAMINS W/ FOLIC ACID TABLET (FP) PO SCH (12:31)
[2021-05-19] MEDS: amLODIPine BESYLATE 10 MG TABLET (FP) PO SCH (12:32)
[2021-05-19] MEDS: ENALAPRIL MALEATE 10 MG TABLET PO SCH ×3 (12:32→22:31)
[2021-05-19] MEDS: IBUPROFEN 400 MG TABLET (FP) PO PRN (12:32)
[2021-05-19] MEDS: MELATONIN 5 MG TABLETS PO SCH (22:31)
[2021-05-19] MEDS: THIAMINE HCL 100 MG TABLET (FP) PO SCH (22:32)
[2021-05-20] MEDS: methaDONE HCL 10 MG TABLET PO SCH (06:08)
[2021-05-20] MEDS: chlordiazePOXIDE HCL 25 MG CAPSULE PO SCH ×6 (06:10→23:38)
[2021-05-20] MEDS: FERROUS SO4 325 MG TABLET (FP) PO SCH ×3 (07:39→23:38)
[2021-05-20] MEDS: ACETAMINOPHEN 325 MG TABLET (FP) PO PRN (09:09)
[2021-05-20] MEDS: METHOCARBAMOL 500 MG TABLET PO PRN (09:09)
[2021-05-20] MEDS: IBUPROFEN 400 MG TABLET (FP) PO PRN (09:17)
[2021-05-20] MEDS: ENALAPRIL MALEATE 10 MG TABLET PO SCH ×2 (09:35→22:33)
[2021-05-20] MEDS: LEVOTHYROXINE NA 100 MCG TABLET (FP) PO SCH (09:35)
[2021-05-20] MEDS: PRENATAL VITAMINS W/ FOLIC ACID TABLET (FP) PO SCH (09:35)
[2021-05-20] MEDS: amLODIPine BESYLATE 10 MG TABLET (FP) PO SCH (09:35)
[2021-05-20 10:09] LABS: EOS % 3.4 % (0-4.5); HEMATOCRIT 31.4 % (35.4-49); HEMOGLOBIN 10.6 GM/dL (11.7-16.9); LYMPH % 21.4 % (8-40); MCH 26.9 pg (25.7-33.7); MCHC 33.7 g/dl (32.0-35.9); MEAN CELL VOLUME 79.6 fl (80-96); MEAN PLT VOLUME 6.8 fl (7.5-11.1); MONO % 5.6 % (3.8-10.2); NEUT % 68.6 % (42.8-82.8); PLATELET COUNT 373 10^3/uL (134-434); RBC 3.94 M/mm3 (4.00-5.60); RDW 17.6 % (11.9-15.9); WHITE BLOOD COUNT 6.1 K/mm3 (4.0-10.0)
[2021-05-20 10:13] LABS: BILIRUBIN,DIRECT 0.1 mg/dL (0.0-0.2)
[2021-05-20 10:15] LABS: BILIRUBIN,TOTAL 0.4 mg/dL (0.2-1); TOT PROT 5.7 g/dl (6.4-8.2)
[2021-05-20 10:24] LABS: ALBUMIN 2.4 g/dl (3.4-5.0)
[2021-05-20] MEDS: FLUoxetine HCL 20 MG CAPSULE PO SCH (14:56)
[2021-05-20] MEDS: DIVALPROEX SODIUM 500 MG TABLET E.C. PO SCH ×2 (14:56→23:38)
[2021-05-20] MEDS: THIAMINE HCL 100 MG TABLET (FP) PO SCH (23:38)
[2021-05-20] MEDS: MELATONIN 5 MG TABLETS PO SCH (23:39)
[2021-05-21] MEDS ORDERED: chlordiazePOXIDE HCL 10 MG CAPSULE PO PRN
[2021-05-21] MEDS: methaDONE HCL 10 MG TABLET PO SCH (06:31)
[2021-05-21] MEDS: chlordiazePOXIDE HCL 10 MG CAPSULE PO SCH ×5 (06:32→23:50)
[2021-05-21] MEDS: DIVALPROEX SODIUM 500 MG TABLET E.C. PO SCH ×3 (06:32→23:44)
[2021-05-21] MEDS: FERROUS SO4 325 MG TABLET (FP) PO SCH ×3 (06:33→22:23)
[2021-05-21] MEDS: LEVOTHYROXINE NA 100 MCG TABLET (FP) PO SCH (10:24)
[2021-05-21] MEDS: amLODIPine BESYLATE 10 MG TABLET (FP) PO SCH (10:24)
[2021-05-21] MEDS: FLUoxetine HCL 20 MG CAPSULE PO SCH (10:24)
[2021-05-21] MEDS: ENALAPRIL MALEATE 10 MG TABLET PO SCH (10:24)
[2021-05-21] MEDS: PRENATAL VITAMINS W/ FOLIC ACID TABLET (FP) PO SCH (10:24)
[2021-05-21] MEDS ORDERED: amLODIPine BESYLATE 10 MG TABLET (FP) PO SCH (11:52)
[2021-05-21 12:21] LABS: BASO % 0.7 % (0-2.0); EOS % 4.4 % (0-4.5); HEMATOCRIT 30.3 % (35.4-49); HEMOGLOBIN 9.7 GM/dL (11.7-16.9); MCH 25.9 pg (25.7-33.7); MCHC 32.1 g/dl (32.0-35.9); MEAN CELL VOLUME 80.6 fl (80-96); MEAN PLT VOLUME 7.2 fl (7.5-11.1); MONO % 6.6 % (3.8-10.2); NEUT % 61.3 % (42.8-82.8); PLATELET COUNT 371 10^3/uL (134-434); RBC 3.76 M/mm3 (4.00-5.60); RDW 17.5 % (11.9-15.9)
[2021-05-21] MEDS: DOCUSATE SODIUM 100 MG CAPSULE (FP) PO SCH ×2 (15:10→19:52)
[2021-05-21] MEDS: SENNOSIDES 8.6MG TABLET (FP) PO SCH (23:43)
[2021-05-21] MEDS: THIAMINE HCL 100 MG TABLET (FP) PO SCH (23:44)
[2021-05-21] MEDS: MELATONIN 5 MG TABLETS PO SCH (23:44)
[2021-05-22] MEDS: methaDONE HCL 10 MG TABLET PO SCH (06:12)
[2021-05-22] MEDS: DIVALPROEX SODIUM 500 MG TABLET E.C. PO SCH ×3 (06:13→23:39)
[2021-05-22] MEDS: FERROUS SO4 325 MG TABLET (FP) PO SCH ×3 (06:13→23:39)
[2021-05-22] MEDS: chlordiazePOXIDE HCL 10 MG CAPSULE PO SCH ×2 (06:13→18:20)
[2021-05-22] MEDS: DOCUSATE SODIUM 100 MG CAPSULE (FP) PO SCH ×3 (07:36→18:20)
[2021-05-22] MEDS: FLUoxetine HCL 20 MG CAPSULE PO SCH (10:48)
[2021-05-22] MEDS: amLODIPine BESYLATE 10 MG TABLET (FP) PO SCH (10:48)
[2021-05-22] MEDS: LEVOTHYROXINE NA 100 MCG TABLET (FP) PO SCH (10:49)
[2021-05-22] MEDS: PRENATAL VITAMINS W/ FOLIC ACID TABLET (FP) PO SCH (10:49)
[2021-05-22] MEDS: ACETAMINOPHEN 325 MG TABLET (FP) PO PRN (10:50)
[2021-05-22 12:34] LABS: BLOOD UREA NITROGEN 11.5 mg/dL (7-18)
[2021-05-22 12:37] LABS: CALCIUM 7.8 mg/dL (8.5-10.1)
[2021-05-22 12:44] LABS: ALBUMIN 3.1 g/dl (3.4-5.0)
[2021-05-22 22:06] LABS: SARS-CoV-2 NAA Not Detected (Not Detected)
[2021-05-22] MEDS: SENNOSIDES 8.6MG TABLET (FP) PO SCH (23:39)
[2021-05-22] MEDS: THIAMINE HCL 100 MG TABLET (FP) PO SCH (23:39)
[2021-05-22] MEDS: MELATONIN 5 MG TABLETS PO SCH (23:39)
[2021-05-23] MEDS ORDERED: chlordiazePOXIDE HCL 10 MG CAPSULE PO ONE (05:00)
[2021-05-23] MEDS: FERROUS SO4 325 MG TABLET (FP) PO SCH ×3 (06:09→22:46)
[2021-05-23] MEDS: methaDONE HCL 10 MG TABLET PO SCH (06:09)
[2021-05-23] MEDS: DIVALPROEX SODIUM 500 MG TABLET E.C. PO SCH ×3 (06:09→22:46)
[2021-05-23] MEDS: DOCUSATE SODIUM 100 MG CAPSULE (FP) PO SCH ×3 (07:39→19:20)
[2021-05-23] MEDS: FLUoxetine HCL 20 MG CAPSULE PO SCH (10:07)
[2021-05-23] MEDS: amLODIPine BESYLATE 10 MG TABLET (FP) PO SCH (10:08)
[2021-05-23] MEDS: METHOCARBAMOL 500 MG TABLET PO PRN (10:08)
[2021-05-23] MEDS: PRENATAL VITAMINS W/ FOLIC ACID TABLET (FP) PO SCH (10:08)
[2021-05-23] MEDS: LEVOTHYROXINE NA 100 MCG TABLET (FP) PO SCH (10:08)
[2021-05-23] MEDS: MELATONIN 5 MG TABLETS PO SCH (22:47)
[2021-05-23] MEDS: SENNOSIDES 8.6MG TABLET (FP) PO SCH (22:47)
[2021-05-23] MEDS: THIAMINE HCL 100 MG TABLET (FP) PO SCH (22:51)
[2021-05-24] MEDS: FERROUS SO4 325 MG TABLET (FP) PO SCH (06:31)
[2021-05-24] MEDS: methaDONE HCL 10 MG TABLET PO SCH (06:31)
[2021-05-24] MEDS: DIVALPROEX SODIUM 500 MG TABLET E.C. PO SCH (06:31)
[2021-05-24] MEDS: DOCUSATE SODIUM 100 MG CAPSULE (FP) PO SCH (07:40)
[2021-05-24] MEDS: amLODIPine BESYLATE 10 MG TABLET (FP) PO SCH (09:53)
[2021-05-24] MEDS: LEVOTHYROXINE NA 100 MCG TABLET (FP) PO SCH (09:53)
[2021-05-24] MEDS: FLUoxetine HCL 20 MG CAPSULE PO SCH (09:54)
[2021-05-24] MEDS: PRENATAL VITAMINS W/ FOLIC ACID TABLET (FP) PO SCH (09:55)
[2021-05-24 09:58] VITALS: BP 146/93; PULSE 88; TEMP 96.8
== END 2021-05-24 11:56 | disposition home or self-care (01) | DRG 773 ==
LOC: YASAS 11:36 → Y6N 13:31
PROVIDERS: ADMIT Allergy & Immunology; ATTEND Allergy & Immunology
PROC: HZ2ZZZZ Detoxification Services for Substance Abuse Treatment (ICD-10-PCS; principal; 2021-05-18)
DX: F10.230 Alcohol dependence with withdrawal, uncomplicated (principal); F11.20 Opioid dependence, uncomplicated; F14.20 Cocaine dependence, uncomplicated; F13.20 Sedative, hypnotic or anxiolytic dependence, uncomplicated; F12.20 Cannabis dependence, uncomplicated; F17.213 Nicotine dependence, cigarettes, with withdrawal; F19.280 Other psychoactive substance dependence with psychoactive substance-induced anxiety disorder; F19.282 Other psychoactive substance dependence with psychoactive substance-induced sleep disorder; F19.24 Other psychoactive substance dependence with psychoactive substance-induced mood disorder; F25.0 Schizoaffective disorder, bipolar type; D50.9 Iron deficiency anemia, unspecified; E83.51 Hypocalcemia; E89.0 Postprocedural hypothyroidism; I12.0 Hypertensive chronic kidney disease with stage 5 chronic kidney disease or end stage renal disease; N18.6 End stage renal disease; J45.20 Mild intermittent asthma, uncomplicated; M17.0 Bilateral primary osteoarthritis of knee; Z99.89 Dependence on other enabling machines and devices; Z88.8 Allergy status to other drugs, medicaments and biological substances; Z56.0 Unemployment, unspecified; Z59.01 Sheltered homelessness
CPT/HCPCS: 36415; 80053; 80069; 80076; 85025; 85027; 86780; 87811; C9803-CS; U0003; U0005

== ENCOUNTER 2021-07-11 08:55 | Inpatient (IN) | payer OTHER ==
[2021-07-10 18:15] VITALS: BMI 24.2
[2021-07-10] MEDS: DIVALPROEX SODIUM 250 MG TABLET E.C. PO SCH (22:36)
[2021-07-10] MEDS: THIAMINE HCL 100 MG TABLET (FP) PO SCH (22:36)
[2021-07-10] MEDS: chlordiazePOXIDE HCL 25 MG CAPSULE PO SCH (22:37)
[2021-07-11] MEDS: chlordiazePOXIDE HCL 25 MG CAPSULE PO SCH ×4 (06:28→22:49)
[2021-07-11 08:39] LABS: BLOOD UREA NITROGEN 26.1 mg/dL (7-18); CALCIUM 7.4 mg/dL (8.5-10.1)
[2021-07-11 08:43] LABS: CREATININE 1.2 mg/dL (0.55-1.3)
[2021-07-11 08:45] LABS: BILIRUBIN,TOTAL 0.1 mg/dL (0.2-1); HEMATOCRIT 26.4 % (35.4-49); HEMOGLOBIN 8.7 GM/dL (11.7-16.9); MCH 26.9 pg (25.7-33.7); MEAN CELL VOLUME 81.4 fl (80-96); MEAN PLT VOLUME 6.7 fl (7.5-11.1); PLATELET COUNT 370 10^3/uL (134-434); RBC 3.24 M/mm3 (4.00-5.60); RDW 16.7 % (11.9-15.9); TOT PROT 6.1 g/dl (6.4-8.2); WHITE BLOOD COUNT 5.1 K/mm3 (4.0-10.0)
[~2021-07-11 08:55] MED LIST: ACETAMINOPHEN 325 MG TABLET (FP) PO PRN; ALBUTEROL SO4 HFA INHALER IH PRN; BENZOCAINE/MENTHOL (CHLORASEPTIC ) LOZENGE MM PRN; BISMUTH SUBSALICYLATE 524 MG/30 ML PO PRN; DICYCLOMINE HCL 10 MG CAPSULE PO PRN; IBUPROFEN 400 MG TABLET (FP) PO PRN; LOPERAMIDE HCL 2 MG CAPSULE PO PRN; MAG HYDROX/AL HYDROX/SIMETH 30 ML UNIT-DOSE CUP PO PRN; MAGNESIUM CITRATE 300 ML BOTTLE PO PRN; MAGNESIUM HYDROX 2400MG/30ML ORAL SUSPENSION 30 ML CUP PO PRN; MELATONIN 5 MG TABLETS PO PRN; METHOCARBAMOL 500 MG TABLET PO PRN; NICOTINE POLACRILEX 2 MG GUM BUC PRN; ONDANSETRON *ODT* 4 MG TABLET SL PRN; chlordiazePOXIDE HCL 25 MG CAPSULE ONE; chlordiazePOXIDE HCL 25 MG CAPSULE PO ONE; chlordiazePOXIDE HCL 25 MG CAPSULE PO PRN; cloNIDine HCL 0.1 MG TABLET PO PRN; methaDONE HCL 10 MG TABLET (FOR DETOX USE ONLY) PO ONE
[2021-07-11] MEDS ORDERED: chlordiazePOXIDE HCL 25 MG CAPSULE ONE (09:55)
[2021-07-11] MEDS ORDERED: methaDONE HCL 10 MG TABLET (FOR DETOX USE ONLY) ONE (09:55)
[2021-07-11] MEDS: LEVOTHYROXINE NA 100 MCG TABLET (FP) PO SCH (14:16)
[2021-07-11] MEDS: DIVALPROEX SODIUM 250 MG TABLET E.C. PO SCH ×2 (14:16→22:48)
[2021-07-11] MEDS: FERROUS SO4 325 MG TABLET (FP) PO SCH ×2 (14:18→17:54)
[2021-07-11] MEDS: PRENATAL VITAMINS W/ FOLIC ACID TABLET (FP) PO SCH (14:18)
[2021-07-11] MEDS: THIAMINE HCL 100 MG TABLET (FP) PO SCH (22:48)
[2021-07-12] MEDS: FERROUS SO4 325 MG TABLET (FP) PO SCH ×4 (00:48→17:47)
[2021-07-12] MEDS: chlordiazePOXIDE HCL 25 MG CAPSULE PO SCH ×4 (05:25→23:43)
[2021-07-12] MEDS: LEVOTHYROXINE NA 100 MCG TABLET (FP) PO SCH (06:23)
[2021-07-12] MEDS ORDERED: methaDONE HCL 10 MG TABLET (FOR DETOX USE ONLY) PO ONE (10:00)
[2021-07-12] MEDS: DIVALPROEX SODIUM 250 MG TABLET E.C. PO SCH ×2 (10:28→23:43)
[2021-07-12] MEDS: FLUoxetine HCL 10 MG TABLET PO SCH (10:28)
[2021-07-12] MEDS: PRENATAL VITAMINS W/ FOLIC ACID TABLET (FP) PO SCH (10:30)
[2021-07-12] MEDS: THIAMINE HCL 100 MG TABLET (FP) PO SCH (22:45)
[2021-07-12] MEDS ORDERED: TRIMETHOBENZAMIDE HCL 200MG/2ML INJ IM ONE (22:54)
[2021-07-13] MEDS ORDERED: chlordiazePOXIDE HCL 10 MG CAPSULE PO PRN
[2021-07-13] MEDS ORDERED: methaDONE HCL 10 MG TABLET (FOR DETOX USE ONLY) ONE (08:30)
[2021-07-13] MEDS: chlordiazePOXIDE HCL 10 MG CAPSULE PO SCH ×4 (08:51→22:30)
[2021-07-13] MEDS: FERROUS SO4 325 MG TABLET (FP) PO SCH ×3 (08:52→17:54)
[2021-07-13] MEDS: LEVOTHYROXINE NA 100 MCG TABLET (FP) PO SCH (08:52)
[2021-07-13] MEDS: PRENATAL VITAMINS W/ FOLIC ACID TABLET (FP) PO SCH (10:16)
[2021-07-13] MEDS: FLUoxetine HCL 10 MG TABLET PO SCH (10:17)
[2021-07-13] MEDS: DIVALPROEX SODIUM 250 MG TABLET E.C. PO SCH ×2 (10:17→22:30)
[2021-07-13] MEDS: THIAMINE HCL 100 MG TABLET (FP) PO SCH (22:30)
[2021-07-14] MEDS ORDERED: chlordiazePOXIDE HCL 10 MG CAPSULE PO SCH (05:00)
[2021-07-14] MEDS: LEVOTHYROXINE NA 100 MCG TABLET (FP) PO SCH (06:35)
[2021-07-14] MEDS: FERROUS SO4 325 MG TABLET (FP) PO SCH ×2 (07:13→12:02)
[2021-07-14] MEDS ORDERED: cloNIDine HCL 0.1 MG TABLET PO ONE (09:33)
[2021-07-14] MEDS ORDERED: FLUoxetine HCL 10 MG CAPSULE PO SCH (10:00)
[2021-07-14] MEDS ORDERED: methaDONE HCL 10 MG TABLET (FOR DETOX USE ONLY) PO ONE (10:00)
[2021-07-14] MEDS: PRENATAL VITAMINS W/ FOLIC ACID TABLET (FP) PO SCH (10:30)
[2021-07-14] MEDS: DIVALPROEX SODIUM 250 MG TABLET E.C. PO SCH (10:34)
[2021-07-14 12:18] LABS: HEMATOCRIT 27.3 % (35.4-49); HEMOGLOBIN 8.8 GM/dL (11.7-16.9); MCH 26.4 pg (25.7-33.7); MCHC 32.4 g/dl (32.0-35.9); MEAN CELL VOLUME 81.6 fl (80-96); MEAN PLT VOLUME 7.2 fl (7.5-11.1); PLATELET COUNT 336 10^3/uL (134-434); RBC 3.34 M/mm3 (4.00-5.60); RDW 17.1 % (11.9-15.9); WHITE BLOOD COUNT 5.5 K/mm3 (4.0-10.0)
[2021-07-14 12:28] LABS: RETICULOCYTES 1.32 % (0.5-1.5)
[2021-07-14 13:00] VITALS: BP 146/91; PULSE 102; TEMP 97.3
[2021-07-14] MEDS ORDERED: CALCIUM 250MG/VIT-D 125 UNITS 1 COMBO TABLET PO SCH (22:00)
[2021-07-15] MEDS ORDERED: chlordiazePOXIDE HCL 10 MG CAPSULE PO ONE (05:00)
== END 2021-07-14 03:09 | disposition home or self-care (01) | DRG 773 ==
LOC: YASAS 08:55 → Y3N 09:00
PROVIDERS: ADMIT Allergy & Immunology; ATTEND Surgery
PROC: HZ2ZZZZ Detoxification Services for Substance Abuse Treatment (ICD-10-PCS; principal; 2021-07-11)
DX: F11.23 Opioid dependence with withdrawal (principal); F10.230 Alcohol dependence with withdrawal, uncomplicated; F14.20 Cocaine dependence, uncomplicated; F12.20 Cannabis dependence, uncomplicated; F17.210 Nicotine dependence, cigarettes, uncomplicated; F25.0 Schizoaffective disorder, bipolar type; E83.51 Hypocalcemia; D50.9 Iron deficiency anemia, unspecified; E03.9 Hypothyroidism, unspecified; J45.20 Mild intermittent asthma, uncomplicated; R79.89 Other specified abnormal findings of blood chemistry; Z85.850 Personal history of malignant neoplasm of thyroid; Z99.89 Dependence on other enabling machines and devices; Z88.8 Allergy status to other drugs, medicaments and biological substances
CPT/HCPCS: 36415; 80053; 82310; 82607; 82746; 83540; 83550; 84443; 84520; 85027; 85045; 86780; 87811; C9803-CS; J0735; U0003; U0005

== ENCOUNTER 2021-08-05 13:09 | Inpatient (IN) | payer OTHER ==
[2021-08-05 13:41] VITALS: BMI 24.2
[2021-08-05] MEDS ORDERED: methaDONE HCL 10 MG TABLET (FOR DETOX USE ONLY) PO ONE (15:10)
[2021-08-05] MEDS ORDERED: chlordiazePOXIDE HCL 25 MG CAPSULE PO PRN (15:10)
[2021-08-05] MEDS ORDERED: NALOXONE HCL (KLOXXADO) 8 MG SPRAY NS PRN (15:10)
[2021-08-05] MEDS ORDERED: ONDANSETRON *ODT* 4 MG TABLET SL PRN (15:10)
[2021-08-05] MEDS ORDERED: BENZOCAINE/MENTHOL (CHLORASEPTIC ) LOZENGE MM PRN (15:10)
[2021-08-05] MEDS ORDERED: ACETAMINOPHEN 325 MG TABLET (FP) PO PRN ×2 (15:10)
[2021-08-05] MEDS ORDERED: BISMUTH SUBSALICYLATE 262 MG/15 ML BTL PO PRN (15:10)
[2021-08-05] MEDS ORDERED: IBUPROFEN 400 MG TABLET (FP) PO PRN (15:10)
[2021-08-05] MEDS ORDERED: LOPERAMIDE HCL 2 MG CAPSULE PO PRN (15:10)
[2021-08-05] MEDS ORDERED: MAG HYDROX/AL HYDROX/SIMETH 30 ML UNIT-DOSE CUP PO PRN (15:10)
[2021-08-05] MEDS ORDERED: MAGNESIUM HYDROX 2400MG/30ML ORAL SUSPENSION 30 ML CUP PO PRN (15:10)
[2021-08-05] MEDS ORDERED: MAGNESIUM CITRATE 300 ML BOTTLE PO PRN (15:10)
[2021-08-05] MEDS ORDERED: NICOTINE 10 MG CARTRIDGE (INHALER) IH PRN (15:10)
[2021-08-05] MEDS ORDERED: DICYCLOMINE HCL 10 MG CAPSULE PO PRN (15:10)
[2021-08-05] MEDS ORDERED: ALBUTEROL SO4 HFA INHALER IH PRN (15:19)
[2021-08-05] MEDS ORDERED: chlordiazePOXIDE HCL 25 MG CAPSULE ONE (16:03)
[2021-08-05] MEDS ORDERED: methaDONE HCL 10 MG TABLET (FOR DETOX USE ONLY) ONE (16:03)
[2021-08-05] MEDS: chlordiazePOXIDE HCL 25 MG CAPSULE PO SCH ×2 (16:40→23:17)
[2021-08-05] MEDS: cloNIDine HCL 0.1 MG TABLET PO PRN (16:40)
[2021-08-05] MEDS ORDERED: hydrOXYzine PAMOATE 25 MG CAPSULE (FP) PO SCH (18:00)
[2021-08-05] MEDS: MELATONIN 5 MG TABLETS PO SCH (23:18)
[2021-08-05] MEDS: THIAMINE HCL 100 MG TABLET (FP) PO SCH (23:18)
[2021-08-06] MEDS: chlordiazePOXIDE HCL 25 MG CAPSULE PO SCH ×2 (05:54→10:18)
[2021-08-06] MEDS: LEVOTHYROXINE NA 100 MCG TABLET (FP) PO SCH (06:00)
[2021-08-06] MEDS ORDERED: cloNIDine HCL 0.1 MG TABLET PO PRN (09:01)
[2021-08-06] MEDS ORDERED: methaDONE HCL 10 MG TABLET (FOR DETOX USE ONLY) ONE (10:03)
[2021-08-06] MEDS: PRENATAL VITAMINS W/ FOLIC ACID TABLET (FP) PO SCH (10:13)
[2021-08-06] MEDS ORDERED: diazePAM 5 MG TABLET PO PRN (10:30)
[2021-08-06 10:37] LABS: CALCIUM 7.4 mg/dL (8.5-10.1)
[2021-08-06 10:39] LABS: ALBUMIN 3.6 g/dl (3.4-5.0); BLOOD UREA NITROGEN 27.8 mg/dL (7-18)
[2021-08-06 10:41] LABS: HEMATOCRIT 28.4 % (35.4-49); HEMOGLOBIN 9.5 GM/dL (11.7-16.9); MCH 26.8 pg (25.7-33.7); MCHC 33.3 g/dl (32.0-35.9); MEAN CELL VOLUME 80.4 fl (80-96); MEAN PLT VOLUME 6.8 fl (7.5-11.1); PLATELET COUNT 396 10^3/uL (134-434); RBC 3.53 M/mm3 (4.00-5.60); RDW 16.1 % (11.9-15.9); WHITE BLOOD COUNT 2.9 K/mm3 (4.0-10.0)
[2021-08-06 10:42] LABS: CREATININE 1.3 mg/dL (0.55-1.3)
[2021-08-06 10:44] LABS: BILIRUBIN,TOTAL 0.3 mg/dL (0.2-1); TOT PROT 7.6 g/dl (6.4-8.2)
[2021-08-06] MEDS: amLODIPine BESYLATE 5 MG TABLET (FP) PO SCH (11:27)
[2021-08-06] MEDS: DIVALPROEX SODIUM 500 MG TABLET E.C. PO SCH ×2 (14:07→22:54)
[2021-08-06] MEDS: diazePAM 5 MG TABLET PO SCH ×2 (18:47→22:55)
[2021-08-06] MEDS: CALCIUM 250MG/VIT-D 125 UNITS 1 COMBO TABLET PO SCH (19:05)
[2021-08-06] MEDS: METHOCARBAMOL 500 MG TABLET PO PRN (19:06)
[2021-08-06] MEDS: MELATONIN 5 MG TABLETS PO SCH (22:54)
[2021-08-06] MEDS: THIAMINE HCL 100 MG TABLET (FP) PO SCH (22:54)
[2021-08-07] MEDS ORDERED: chlordiazePOXIDE HCL 25 MG CAPSULE PO SCH (05:00)
[2021-08-07] MEDS: LEVOTHYROXINE NA 100 MCG TABLET (FP) PO SCH (06:32)
[2021-08-07] MEDS: diazePAM 5 MG TABLET PO SCH ×3 (06:32→22:42)
[2021-08-07] MEDS: DIVALPROEX SODIUM 500 MG TABLET E.C. PO SCH ×3 (06:32→22:41)
[2021-08-07] MEDS ORDERED: methaDONE HCL 10 MG TABLET (FOR DETOX USE ONLY) PO ONE ×2 (10:00)
[2021-08-07 10:29] LABS: BLOOD UREA NITROGEN 14.1 mg/dL (7-18)
[2021-08-07] MEDS: CALCIUM 250MG/VIT-D 125 UNITS 1 COMBO TABLET PO SCH (10:53)
[2021-08-07] MEDS: PRENATAL VITAMINS W/ FOLIC ACID TABLET (FP) PO SCH (10:54)
[2021-08-07] MEDS: amLODIPine BESYLATE 5 MG TABLET (FP) PO SCH (10:54)
[2021-08-07] MEDS ORDERED: amLODIPine BESYLATE 5 MG TABLET (FP) PO SCH (11:20)
[2021-08-07] MEDS: cloNIDine HCL 0.1 MG TABLET PO PRN (12:58)
[2021-08-07] MEDS: MELATONIN 5 MG TABLETS PO SCH (22:41)
[2021-08-07] MEDS: THIAMINE HCL 100 MG TABLET (FP) PO SCH (22:41)
[2021-08-08] MEDS ORDERED: chlordiazePOXIDE HCL 10 MG CAPSULE PO PRN
[2021-08-08] MEDS ORDERED: chlordiazePOXIDE HCL 10 MG CAPSULE PO SCH (05:00)
[2021-08-08] MEDS: DIVALPROEX SODIUM 500 MG TABLET E.C. PO SCH ×3 (06:04→23:18)
[2021-08-08] MEDS: diazePAM 5 MG TABLET PO SCH ×2 (06:05→17:54)
[2021-08-08] MEDS: LEVOTHYROXINE NA 100 MCG TABLET (FP) PO SCH (06:05)
[2021-08-08] MEDS ORDERED: methaDONE HCL 10 MG TABLET (FOR DETOX USE ONLY) ONE (09:38)
[2021-08-08] MEDS: PRENATAL VITAMINS W/ FOLIC ACID TABLET (FP) PO SCH (11:16)
[2021-08-08] MEDS: CALCIUM 250MG/VIT-D 125 UNITS 1 COMBO TABLET PO SCH (11:16)
[2021-08-08] MEDS: FERROUS SO4 325 MG TABLET (FP) PO SCH (11:17)
[2021-08-08] MEDS: amLODIPine BESYLATE 10 MG TABLET (FP) PO SCH (11:17)
[2021-08-08] MEDS: IBUPROFEN 600 MG TABLET (FP) PO PRN ×2 (17:54→23:18)
[2021-08-08] MEDS: MELATONIN 5 MG TABLETS PO SCH (23:17)
[2021-08-08] MEDS: THIAMINE HCL 100 MG TABLET (FP) PO SCH (23:17)
[2021-08-09] MEDS ORDERED: chlordiazePOXIDE HCL 10 MG CAPSULE PO SCH (05:00)
[2021-08-09] MEDS: DIVALPROEX SODIUM 500 MG TABLET E.C. PO SCH ×3 (05:25→22:38)
[2021-08-09] MEDS ORDERED: diazePAM 5 MG TABLET PO ONE (06:00)
[2021-08-09] MEDS: LEVOTHYROXINE NA 100 MCG TABLET (FP) PO SCH (06:03)
[2021-08-09] MEDS ORDERED: methaDONE HCL 10 MG TABLET (FOR DETOX USE ONLY) PO ONE ×2 (10:00)
[2021-08-09] MEDS: CALCIUM 250MG/VIT-D 125 UNITS 1 COMBO TABLET PO SCH (10:39)
[2021-08-09] MEDS: METHOCARBAMOL 500 MG TABLET PO PRN (10:39)
[2021-08-09] MEDS: FERROUS SO4 325 MG TABLET (FP) PO SCH (10:39)
[2021-08-09] MEDS: amLODIPine BESYLATE 10 MG TABLET (FP) PO SCH (10:39)
[2021-08-09] MEDS: PRENATAL VITAMINS W/ FOLIC ACID TABLET (FP) PO SCH (10:39)
[2021-08-09] MEDS: MELATONIN 5 MG TABLETS PO SCH (22:38)
[2021-08-09] MEDS: THIAMINE HCL 100 MG TABLET (FP) PO SCH (22:38)
[2021-08-09] MEDS: IBUPROFEN 600 MG TABLET (FP) PO PRN (22:39)
[2021-08-10] MEDS ORDERED: chlordiazePOXIDE HCL 10 MG CAPSULE PO ONE (05:00)
[2021-08-10] MEDS: DIVALPROEX SODIUM 500 MG TABLET E.C. PO SCH ×4 (06:36→23:58)
[2021-08-10] MEDS: LEVOTHYROXINE NA 100 MCG TABLET (FP) PO SCH (06:37)
[2021-08-10] MEDS: FERROUS SO4 325 MG TABLET (FP) PO SCH (10:18)
[2021-08-10] MEDS: CALCIUM 250MG/VIT-D 125 UNITS 1 COMBO TABLET PO SCH (10:19)
[2021-08-10] MEDS: amLODIPine BESYLATE 10 MG TABLET (FP) PO SCH (10:19)
[2021-08-10] MEDS: PRENATAL VITAMINS W/ FOLIC ACID TABLET (FP) PO SCH (10:19)
[2021-08-10] MEDS ORDERED: LEVOTHYROXINE NA 150 MCG TABLET PO ONE (12:29)
[2021-08-10] MEDS ORDERED: LEVOTHYROXINE NA 100 MCG TABLET (FP) ONE (12:55)
[2021-08-10] MEDS ORDERED: LEVOTHYROXINE NA 25 MCG TABLET (FP) ONE (12:55)
[2021-08-10] MEDS: LEVOTHYROXINE 100 MCG, LEVOTHYROXINE 50 MCG PO ONE ×2 (12:56→13:50)
[2021-08-10] MEDS: IBUPROFEN 600 MG TABLET (FP) PO PRN ×2 (16:28→23:56)
[2021-08-10] MEDS: THIAMINE HCL 100 MG TABLET (FP) PO SCH (23:02)
[2021-08-10] MEDS: MELATONIN 5 MG TABLETS PO SCH (23:02)
[2021-08-11] MEDS: THIAMINE HCL 100 MG TABLET (FP) PO SCH
[2021-08-11] MEDS: MELATONIN 5 MG TABLETS PO SCH (02:32)
[2021-08-11] MEDS ORDERED: LEVOTHYROXINE NA 25 MCG TABLET (FP) ONE (06:30)
[2021-08-11] MEDS ORDERED: LEVOTHYROXINE NA 100 MCG TABLET (FP) ONE (06:30)
[2021-08-11] MEDS: DIVALPROEX SODIUM 500 MG TABLET E.C. PO SCH ×2 (06:31→06:57)
[2021-08-11] MEDS ORDERED: LEVOTHYROXINE NA 100 MCG TABLET (FP) PO SCH (07:00)
[2021-08-11] MEDS ORDERED: LEVOTHYROXINE 100 MCG, LEVOTHYROXINE 50 MCG PO SCH (07:00)
[2021-08-11 08:47] VITALS: BP 126/85; PULSE 75; TEMP 97.8
== END 2021-08-11 08:41 | disposition home or self-care (01) | DRG 773 ==
LOC: YASAS 13:09 → Y6N 15:25
PROVIDERS: ADMIT Allergy & Immunology; ATTEND Surgery
PROC: HZ2ZZZZ Detoxification Services for Substance Abuse Treatment (ICD-10-PCS; principal; 2021-08-05)
DX: F11.23 Opioid dependence with withdrawal (principal); F10.230 Alcohol dependence with withdrawal, uncomplicated; F14.20 Cocaine dependence, uncomplicated; F12.20 Cannabis dependence, uncomplicated; F17.213 Nicotine dependence, cigarettes, with withdrawal; F25.0 Schizoaffective disorder, bipolar type; I10 Essential (primary) hypertension; D50.9 Iron deficiency anemia, unspecified; E03.9 Hypothyroidism, unspecified; J45.20 Mild intermittent asthma, uncomplicated; E83.51 Hypocalcemia; E89.0 Postprocedural hypothyroidism; R26.2 Difficulty in walking, not elsewhere classified; Z99.89 Dependence on other enabling machines and devices; Z85.850 Personal history of malignant neoplasm of thyroid; Z86.69 Personal history of other diseases of the nervous system and sense organs; Z56.0 Unemployment, unspecified; Z59.01 Sheltered homelessness
CPT/HCPCS: 36415; 80053; 80164; 82607; 82746; 83540; 83550; 84436; 84443; 84520; 85027; 86780; 87811; C9803-CS; J0735; U0003; U0005

== ENCOUNTER 2021-10-10 08:26 | Inpatient (IN) | payer OTHER ==
[2021-10-09 18:00] VITALS: BMI 24.2
[2021-10-09] MEDS: THIAMINE HCL 100 MG TABLET (FP) PO SCH (22:37)
[2021-10-09] MEDS: amLODIPine BESYLATE 10 MG TABLET (FP) PO SCH (22:37)
[2021-10-09] MEDS: DIVALPROEX SODIUM 250 MG TABLET E.C. PO SCH (22:37)
[~2021-10-10 08:26] MED LIST changes: +IBUPROFEN 600 MG TABLET (FP) PO PRN; +amLODIPine BESYLATE 5 MG TABLET (FP) ONE; -chlordiazePOXIDE HCL 25 MG CAPSULE ONE; -chlordiazePOXIDE HCL 25 MG CAPSULE PO ONE; -chlordiazePOXIDE HCL 25 MG CAPSULE PO PRN; +diazePAM 5 MG TABLET PO PRN; +guaiFENesin 200 MG/10 ML 10 ML UNIT-DOSE CUPS PO PRN; +methaDONE HCL 10 MG TABLET (FOR DETOX USE ONLY) ONE
[2021-10-10] MEDS ORDERED: methaDONE HCL 10 MG TABLET (FOR DETOX USE ONLY) ONE (11:04)
[2021-10-10] MEDS ORDERED: amLODIPine BESYLATE 5 MG TABLET (FP) ONE (11:04)
[2021-10-10] MEDS: amLODIPine BESYLATE 10 MG TABLET (FP) PO SCH (11:16)
[2021-10-10] MEDS: LEVOTHYROXINE NA 100 MCG TABLET (FP) PO SCH (12:50)
[2021-10-10] MEDS: PRENATAL VITAMINS W/ FOLIC ACID TABLET (FP) PO SCH (12:51)
[2021-10-10] MEDS: DIVALPROEX SODIUM 250 MG TABLET E.C. PO SCH ×3 (13:10→23:10)
[2021-10-10 14:21] LABS: HEMATOCRIT 31.1 % (35.4-49); HEMOGLOBIN 10.4 GM/dL (11.7-16.9); MCH 27.2 pg (25.7-33.7); MCHC 33.5 g/dl (32.0-35.9); MEAN CELL VOLUME 81.3 fl (80-96); MEAN PLT VOLUME 6.9 fl (7.5-11.1); PLATELET COUNT 454 10^3/uL (134-434); RBC 3.83 M/mm3 (4.00-5.60); RDW 16.4 % (11.9-15.9); WHITE BLOOD COUNT 4.4 K/mm3 (4.0-10.0)
[2021-10-10 14:28] LABS: ALBUMIN 3.4 g/dl (3.4-5.0); BLOOD UREA NITROGEN 14.9 mg/dL (7-18)
[2021-10-10 14:34] LABS: BILIRUBIN,TOTAL 0.5 mg/dL (0.2-1)
[2021-10-10 14:35] LABS: TOT PROT 7.2 g/dl (6.4-8.2)
[2021-10-10] MEDS: THIAMINE HCL 100 MG TABLET (FP) PO SCH (23:10)
[2021-10-11] MEDS: LEVOTHYROXINE NA 100 MCG TABLET (FP) PO SCH (06:20)
[2021-10-11] MEDS: DIVALPROEX SODIUM 250 MG TABLET E.C. PO SCH (06:20)
[2021-10-11 08:38] VITALS: RESP 18
[2021-10-11] MEDS ORDERED: methaDONE HCL 10 MG TABLET (FOR DETOX USE ONLY) PO ONE (10:00)
[2021-10-11] MEDS: PRENATAL VITAMINS W/ FOLIC ACID TABLET (FP) PO SCH (10:22)
[2021-10-11] MEDS: amLODIPine BESYLATE 10 MG TABLET (FP) PO SCH (10:22)
[2021-10-11] MEDS ORDERED: CALCIUM 250MG/VIT-D 125 UNITS 1 COMBO TABLET PO SCH (12:00)
[2021-10-11 13:13] VITALS: BP 166/97; PULSE 98; TEMP 97.7
[2021-10-13] MEDS ORDERED: methaDONE HCL 10 MG TABLET (FOR DETOX USE ONLY) PO ONE (10:00)
== END 2021-10-11 13:58 | disposition left against medical advice (07) | DRG 770 ==
LOC: YASAS 08:26 → Y6N 11:53
PROVIDERS: ADMIT Allergy & Immunology; ATTEND Surgery
PROC: HZ2ZZZZ Detoxification Services for Substance Abuse Treatment (ICD-10-PCS; principal; 2021-10-10)
DX: F11.23 Opioid dependence with withdrawal (principal); F10.230 Alcohol dependence with withdrawal, uncomplicated; F14.20 Cocaine dependence, uncomplicated; F12.20 Cannabis dependence, uncomplicated; F17.210 Nicotine dependence, cigarettes, uncomplicated; F31.9 Bipolar disorder, unspecified; F25.9 Schizoaffective disorder, unspecified; F41.9 Anxiety disorder, unspecified; E58 Dietary calcium deficiency; E89.0 Postprocedural hypothyroidism; I10 Essential (primary) hypertension; J45.20 Mild intermittent asthma, uncomplicated; Z99.89 Dependence on other enabling machines and devices; Z85.850 Personal history of malignant neoplasm of thyroid; Z88.8 Allergy status to other drugs, medicaments and biological substances
CPT/HCPCS: 36415; 80053; 85027; 86780; 87811; C9803-CS; U0003; U0005

== ENCOUNTER 2022-10-04 18:00 | Inpatient (IN) | payer OTHER ==
[2022-10-04 20:03] VITALS: BMI 25.8
[2022-10-04] MEDS ORDERED: NALOXONE (NARCAN) HCL 4 MG/0.1 ML SPRAY NS PRN (22:11)
[2022-10-04] MEDS ORDERED: ALBUTEROL SO4 HFA INHALER IH PRN (22:11)
[2022-10-04] MEDS ORDERED: guaiFENesin 600 MG TABLET.ER (FP) PO PRN (22:24)
[2022-10-04] MEDS ORDERED: LOPERAMIDE HCL 2 MG CAPSULE PO PRN (22:24)
[2022-10-04] MEDS ORDERED: POLYETHYLENE GLYCOL (HEALTHYLAX) 3350 17 GM PACKET PO PRN (22:24)
[2022-10-04] MEDS ORDERED: BENZOCAINE/MENTHOL (CHLORASEPTIC ) LOZENGE MM PRN (22:24)
[2022-10-04] MEDS ORDERED: DICYCLOMINE HCL 10 MG CAPSULE PO PRN (22:24)
[2022-10-04] MEDS ORDERED: BENZONATATE 200 MG CAPSULE PO PRN (22:24)
[2022-10-04] MEDS ORDERED: NICOTINE POLACRILEX 2 MG GUM BUC PRN (22:24)
[2022-10-04] MEDS ORDERED: MAGNESIUM HYDROX 2400MG/30ML ORAL SUSPENSION 30 ML CUP PO PRN (22:24)
[2022-10-04] MEDS ORDERED: NALOXONE HCL 0.4 MG/ML VIAL IM PRN (22:24)
[2022-10-04] MEDS ORDERED: BISMUTH SUBSALICYLATE 524 MG/30 ML PO PRN (22:24)
[2022-10-04] MEDS ORDERED: ONDANSETRON *ODT* 4 MG TABLET SL PRN (22:24)
[2022-10-04] MEDS ORDERED: NALOXONE HCL (KLOXXADO) 8 MG SPRAY NS PRN (22:24)
[2022-10-04] MEDS ORDERED: IBUPROFEN 400 MG TABLET (FP) PO PRN (22:24)
[2022-10-04] MEDS ORDERED: MAG HYDROX/AL HYDROX/SIMETH 30 ML UNIT-DOSE CUP PO PRN (22:24)
[2022-10-04] MEDS ORDERED: ACETAMINOPHEN 325 MG TABLET (FP) PO PRN (22:24)
[2022-10-04] MEDS: diazePAM 5 MG TABLET PO PRN (23:47)
[2022-10-05] MEDS: diazePAM 5 MG TABLET PO SCH ×4 (05:57→22:29)
[2022-10-05] MEDS: LEVOTHYROXINE NA 100 MCG TABLET (FP) PO SCH (06:15)
[2022-10-05] MEDS ORDERED: methaDONE HCL 10 MG TABLET PO SCH (09:30)
[2022-10-05] MEDS ORDERED: methaDONE 40 MG, methaDONE 20 MG PO ONE (09:45)
[2022-10-05] MEDS ORDERED: CALCIUM 250MG/VIT-D 125 UNITS 1 COMBO TABLET PO SCH (10:00)
[2022-10-05] MEDS: PRENATAL VITAMINS W/ FOLIC ACID TABLET (FP) PO SCH (10:29)
[2022-10-05] MEDS: amLODIPine BESYLATE 10 MG TABLET (FP) PO SCH (10:30)
[2022-10-05] MEDS: DOCUSATE SODIUM 100 MG CAPSULE (FP) PO SCH ×2 (10:30→22:29)
[2022-10-05 10:41] LABS: HEMATOCRIT 28.3 % (35.4-49); HEMOGLOBIN 8.9 GM/dL (11.7-16.9); MCH 23.6 pg (25.7-33.7); MCHC 31.4 g/dl (32.0-35.9); MEAN CELL VOLUME 75.1 fl (80-96); MEAN PLT VOLUME 7.3 fl (7.5-11.1); PLATELET COUNT 412 10^3/uL (134-434); RBC 3.76 M/mm3 (4.00-5.60); WHITE BLOOD COUNT 4.9 K/mm3 (4.0-10.0)
[2022-10-05 10:50] LABS: CHLORIDE 105 mmol/L (98-107); POTASSIUM 4.6 mmol/L (3.5-5.1); SODIUM 141 mmol/L (136-145)
[2022-10-05 11:07] LABS: BLOOD UREA NITROGEN 19.8 mg/dL (7-18)
[2022-10-05 11:10] LABS: ALBUMIN 2.9 g/dl (3.4-5.0); ANION GAP 7 MMOL/L (8-16); CO2 29 mmol/L (21-32); GLUCOSE,RANDOM 76 mg/dL (74-106)
[2022-10-05 11:12] LABS: ALK PHOS 69 U/L (45-117); SGPT/ALT 25 U/L (13-61)
[2022-10-05 11:13] LABS: BILIRUBIN,TOTAL 0.3 mg/dL (0.2-1); SGOT/AST 28 U/L (15-37)
[2022-10-05 11:14] LABS: TOT PROT 6.2 g/dl (6.4-8.2)
[2022-10-05 11:20] LABS: CALCIUM 6.8 mg/dL (8.5-10.1)
[2022-10-05] MEDS: CALCIUM 250MG/VIT-D 125 UNITS 1 COMBO TABLET PO SCH (12:27)
[2022-10-05] MEDS ORDERED: cloNIDine HCL 0.1 MG TABLET PO PRN (13:25)
[2022-10-05] MEDS: IBUPROFEN 600 MG TABLET (FP) PO PRN (17:11)
[2022-10-05] MEDS: MELATONIN 5 MG TABLETS PO SCH (22:29)
[2022-10-05] MEDS: DIVALPROEX SODIUM 500 MG TABLET E.C. PO SCH (22:29)
[2022-10-05] MEDS: THIAMINE HCL 100 MG TABLET (FP) PO SCH (22:29)
[2022-10-05] MEDS: METHOCARBAMOL 500 MG TABLET PO PRN (22:30)
[2022-10-06] MEDS: diazePAM 5 MG TABLET PO SCH ×2 (05:57→17:35)
[2022-10-06] MEDS: methaDONE 40 MG, methaDONE 20 MG PO SCH (05:57)
[2022-10-06] MEDS: LEVOTHYROXINE NA 100 MCG TABLET (FP) PO SCH (06:12)
[2022-10-06] MEDS: PRENATAL VITAMINS W/ FOLIC ACID TABLET (FP) PO SCH (09:34)
[2022-10-06] MEDS: DOCUSATE SODIUM 100 MG CAPSULE (FP) PO SCH ×2 (09:34→22:32)
[2022-10-06] MEDS: amLODIPine BESYLATE 10 MG TABLET (FP) PO SCH (09:35)
[2022-10-06] MEDS: CALCIUM 250MG/VIT-D 125 UNITS 1 COMBO TABLET PO SCH (09:35)
[2022-10-06] MEDS: FLUoxetine HCL 20 MG CAPSULE PO SCH (09:35)
[2022-10-06] MEDS: DIVALPROEX SODIUM 500 MG TABLET E.C. PO SCH ×2 (09:41→22:32)
[2022-10-06] MEDS: IBUPROFEN 600 MG TABLET (FP) PO PRN (17:35)
[2022-10-06] MEDS: THIAMINE HCL 100 MG TABLET (FP) PO SCH (22:32)
[2022-10-06] MEDS: MELATONIN 5 MG TABLETS PO SCH (22:32)
[2022-10-07] MEDS: methaDONE 40 MG, methaDONE 20 MG PO SCH (05:55)
[2022-10-07] MEDS ORDERED: diazePAM 5 MG TABLET PO ONE (06:00)
[2022-10-07] MEDS: LEVOTHYROXINE NA 100 MCG TABLET (FP) PO SCH (06:58)
[2022-10-07] MEDS: PRENATAL VITAMINS W/ FOLIC ACID TABLET (FP) PO SCH (10:14)
[2022-10-07] MEDS: amLODIPine BESYLATE 10 MG TABLET (FP) PO SCH (10:14)
[2022-10-07] MEDS: DOCUSATE SODIUM 100 MG CAPSULE (FP) PO SCH ×2 (10:14→22:24)
[2022-10-07] MEDS: DIVALPROEX SODIUM 500 MG TABLET E.C. PO SCH ×2 (10:14→22:24)
[2022-10-07] MEDS: diazePAM 5 MG TABLET PO PRN ×2 (10:15→22:25)
[2022-10-07] MEDS: FLUoxetine HCL 20 MG CAPSULE PO SCH (10:15)
[2022-10-07] MEDS: CALCIUM 250MG/VIT-D 125 UNITS 1 COMBO TABLET PO SCH (10:15)
[2022-10-07 17:15] VITALS: RESP 18
[2022-10-07] MEDS: THIAMINE HCL 100 MG TABLET (FP) PO SCH (22:24)
[2022-10-07] MEDS: MELATONIN 5 MG TABLETS PO SCH (22:24)
[2022-10-07] MEDS: METHOCARBAMOL 500 MG TABLET PO PRN (22:25)
[2022-10-08] MEDS: methaDONE 40 MG, methaDONE 20 MG PO SCH (05:55)
[2022-10-08] MEDS: LEVOTHYROXINE NA 100 MCG TABLET (FP) PO SCH (06:28)
[2022-10-08] MEDS: PRENATAL VITAMINS W/ FOLIC ACID TABLET (FP) PO SCH (09:30)
[2022-10-08] MEDS: DIVALPROEX SODIUM 500 MG TABLET E.C. PO SCH (09:31)
[2022-10-08] MEDS: FLUoxetine HCL 20 MG CAPSULE PO SCH (09:31)
[2022-10-08] MEDS: CALCIUM 250MG/VIT-D 125 UNITS 1 COMBO TABLET PO SCH (09:31)
[2022-10-08] MEDS: DOCUSATE SODIUM 100 MG CAPSULE (FP) PO SCH (09:31)
[2022-10-08] MEDS: amLODIPine BESYLATE 10 MG TABLET (FP) PO SCH (09:32)
[2022-10-08 13:44] VITALS: BP 123/79; PULSE 72; TEMP 97.3
== END 2022-10-08 01:32 | disposition other institution (70) | DRG 773 ==
LOC: YASAS 18:00 → Y3N 22:46
PROVIDERS: ADMIT Allergy & Immunology; ATTEND Surgery
PROC: HZ2ZZZZ Detoxification Services for Substance Abuse Treatment (ICD-10-PCS; principal; 2022-10-04)
DX: F11.23 Opioid dependence with withdrawal (principal); F10.230 Alcohol dependence with withdrawal, uncomplicated; F14.20 Cocaine dependence, uncomplicated; F12.20 Cannabis dependence, uncomplicated; F19.24 Other psychoactive substance dependence with psychoactive substance-induced mood disorder; F25.9 Schizoaffective disorder, unspecified; E83.51 Hypocalcemia; I10 Essential (primary) hypertension; K21.9 Gastro-esophageal reflux disease without esophagitis; M17.0 Bilateral primary osteoarthritis of knee; E89.0 Postprocedural hypothyroidism; Z85.850 Personal history of malignant neoplasm of thyroid; Z99.89 Dependence on other enabling machines and devices; Z88.8 Allergy status to other drugs, medicaments and biological substances
CPT/HCPCS: 36415; 80053; 80164; 85027; 86780; 87635; 87811